=== PATIENT | female | born 1935 | race Caucasian/White ===

== ENCOUNTER 2018-01-14 14:01 | Inpatient (IN) | payer MEDICARE ==
[2018-01-14] MEDS ORDERED: Sodium Chloride 0.9% 500 ML IV STA ×2 (14:30→16:26)
--- NOTE | 2018-01-14 14:58 | ED PDOC ---
Syncope/Near Syncope/Dizziness Time Seen by Provider: 01/14/18 14:19 Chief Complaint (Nursing): Dizziness/Lightheaded Chief Complaint (Provider): Weakness History Per: Patient History/Exam Limitations: no limitations Onset/Duration Of Symptoms: Days Current Symptoms Are (Timing): Still Present Additional Complaint(s): 82 year old female presents to the ED for an evaluation of near syncope and general weakness. Patient was returning home from lab on the bus and she felt tired because she had not eaten since last night due to blood draw and missed her stop. She attempted to have a cookie after her blood draw and had one episode of vomiting prior to getting on the bus. Patient felt she was losing her vision, developed headache and left-sided neck pain. She states she has these symptoms when she passes out. Patient was advised to increase her insulin dosage last month but has not because she says, its too much. Denies shortness of breath, chest pain, focal weakness or passing out. PMD: Marshall Herrera Past Medical History Reviewed: Historical Data, Nursing Documentation, Vital Signs Vital Signs: Last Vital Signs Temp 98.9 F 01/14/18 14:10 Pulse 71 01/14/18 14:30 Resp 24 01/14/18 14:30 BP 114/52 L 01/14/18 14:30 Pulse Ox 98 01/14/18 14:30 - Medical History PMH: Arthritis, Diabetes, HTN, Hypothyroidism Denies: Chronic Kidney Disease - Surgical History Other surgeries: left tib-fib repair - Family History Family History: States: Unknown Family Hx - Social History Current smoker - smoking cessation education provided: No Alcohol: None Drugs: Denies - Immunization History Hx Tetanus Toxoid Vaccination: No Hx Influenza Vaccination: No Hx Pneumococcal Vaccination: No - Home Medications Home Medications: Ambulatory Orders Medication Instructions Recorded Meclizine [Meclizine*] 25 mg PO TID 01/17/15 Carvedilol [Coreg] 12.5 mg PO Q12 01/14/18 Ergocalciferol (Vitamin D2) 50,000 unit PO SUN 01/14/18 [Vitamin D2] Gabapentin [Neurontin] 300 mg PO Q8 01/14/18 Insulin Aspart Prot/Insuln Asp 8 unit SC DIN 01/14/18 [Novolog Mix 70-30 Vial] Insulin Aspart Prot/Insuln Asp 15 unit SC ACB 01/14/18 [Novolog Mix 70-30 Vial] Levothyroxine [Synthroid] 88 mcg PO DAILY 01/14/18 Losartan [Cozaar] 50 mg PO DAILY 01/14/18 Omeprazole [Omeprazole] 20 mg PO DAILY 01/14/18 Rosuvastatin Calcium [Crestor] 20 mg PO HS 01/14/18 - Allergies Allergies/Adverse Reactions: Allergies Allergy/AdvReac Type Severity Reaction Status Date / Time Sulfa (Sulfonamide Allergy RASH Verified 01/14/18 14:10 Antibiotics) Review of Systems ROS Statement: Except As Marked, All Systems Reviewed And Found Negative (As per HPI, otherwise negative) Constitutional: Positive for: Weakness (generalized ) Eyes: Positive for: Vision Change Cardiovascular: Negative for: Chest Pain Respiratory: Negative for: Shortness of Breath Gastrointestinal: Positive for: Vomiting (1 episode) Musculoskeletal: Positive for: Neck Pain (left-sided) Neurological: Positive for: Headache, Other (near syncope) Physical Exam - Reviewed Nursing Documentation Reviewed: Yes Vital Signs Reviewed: Yes - Physical Exam Appears: Positive for: No Acute Distress (tired) Head Exam: Positive for: ATRAUMATIC, NORMOCEPHALIC Skin: Positive for: Warm, Dry, Pallor Eye Exam: Positive for: EOMI, PERRL, Other (dark orbits) ENT: Positive for: Other (tacky mucous membrane) Neck: Positive for: Painless ROM, Supple. Negative for: Normal (tenderness to palpitation to left cervical paraspinal ) Cardiovascular/Chest: Positive for: Regular Rate, Rhythm, Chest Non Tender. Negative for: Murmur Respiratory: Positive for: Normal Breath Sounds. Negative for: Wheezing Gastrointestinal/Abdominal: Positive for: Soft. Negative for: Tenderness Back: Positive for: Normal Inspection. Negative for: Decreased ROM Extremity: Positive for: Normal ROM. Negative for: Deformity Lymphatic: Negative for: Adenopathy Neurologic/Psych: Positive for: Alert, Oriented (x3), Other (normal speech). Negative for: Motor/Sensory Deficits, Mood/Affect - Laboratory Results Result Diagrams: 01/14/18 14:58 01/14/18 16:30 - ECG O2 Sat by Pulse Oximetry: 98 (RA) Pulse Ox Interpretation: Normal Medical Decision Making Medical Decision Making: Time: 1433 Initial Impression: weakness Differential Diagnosis includes but is not limited to: dehydration, hyperglycemia, electrolyte abnormalities, hypovolemia, heat stroke, ACS Initial Plan: --Type and Screen --Venous Blood Gas Shock Panel --Head w/o Contrast [CT] --EKG --B-Type Natriuretic Peptide --CMP --FREE T4 --Magnesium --Phosphorous --T3 --Thyroid Stimulating --Troponin I --Troponin I Q8H --ED Urine Dipstick --CBC w/ Differential --PTT --Prothrombin Time --Chest Portable [RAD] --Normal Saline 500mls/hr --Blood Culture --Musical Instruments Assembler --IV Insertion --Reevaluation Time: 1501 HISTORY: Near syncope COMPARISON: 01/17/2015 FINDINGS: LUNGS: No active pulmonary disease. PLEURA: No significant pleural effusion identified, no pneumothorax apparent. CARDIOVASCULAR: No radiographic findings to suggest acute or significant cardiovascular disease. OSSEOUS STRUCTURES: No significant abnormalities. VISUALIZED UPPER ABDOMEN: Normal. OTHER FINDINGS: None. IMPRESSION: No active disease. No significant interval change compared to the prior examination(s). Time: 1535 PROCEDURE: CT HEAD WITHOUT CONTRAST. HISTORY: near syncope COMPARISON: 04/22/2013. TECHNIQUE: Axial computed tomography images were obtained through the head/brain without intravenous contrast. Coronal and sagittal reconstructed images. Radiation dose: Total exam DLP = 772.06 mGy-cm. This CT exam was performed using one or more of the following dose reduction techniques: Automated exposure control, adjustment of the mA and/or kV according to patient size, and/or use of iterative reconstruction technique. FINDINGS: HEMORRHAGE: No intracranial hemorrhage. BRAIN: No mass effect or edema. Cortical and cerebellar atrophy, periventricular small vessel disease. Bold infarction left mesial temporal region unchanged. Small encephalomalacia focus in the left temporal lobe also unchanged. VENTRICLES: Unremarkable. No hydrocephalus. CALVARIUM: Unremarkable. PARANASAL SINUSES: Unremarkable as visualized. No significant inflammatory changes. MASTOID AIR CELLS: Unremarkable as visualized. No inflammatory changes. OTHER FINDINGS: None. IMPRESSION: No acute intracranial abnormalities. No significant findings to account for the clinical presentation. No significant interval change compared to the prior examination(s). Udip: ketones, glucose, leuks. Sent of official UA/culture Bloodwork: hyperglycemia and elevated bun/cr and decreased GFR. Mild derangements in LFTs. DW Dr Heart covering for PMD Dr Herrera. Pt to be hospitalized for near syncope Scribe Attestation: Documented by Hussain Lombardo, acting as a scribe for Anna Ayala MD Provider Scribe Attestation: All medical record entries made by the Scribe were at my direction and personally dictated by me. I have reviewed the chart and agree that the record accurately reflects my personal performance of the history, physical exam, medical decision making, and the department course for this patient. I have also personally directed, reviewed, and agree with the discharge instructions and disposition. Disposition - Clinical Impression Clinical Impression: Near syncope, Heat stroke, Hyperglycemia, Dehydration Counseled Patient/Family Regarding: Studies Performed, Diagnosis - Disposition Disposition Time: 14:30 Condition: FAIR - Pt Status Changed To: Hospital Disposition Of: Observation - POA Present On Arrival: Falls Or Trauma (risk)
--- NOTE | 2018-01-14 15:02 | RAD ---
Date of service: 01/14/2018 HISTORY: Near syncope COMPARISON: 01/17/2015 FINDINGS: LUNGS: No active pulmonary disease. PLEURA: No significant pleural effusion identified, no pneumothorax apparent. CARDIOVASCULAR: No radiographic findings to suggest acute or significant cardiovascular disease. OSSEOUS STRUCTURES: No significant abnormalities. VISUALIZED UPPER ABDOMEN: Normal. OTHER FINDINGS: None. IMPRESSION: No active disease. No significant interval change compared to the prior examination(s).
[2018-01-14 15:04] LABS: BASO # 0.1 K/uL (0.0-0.2); BASO % 0.7 % (0.0-2.0); EOS # 0.1 K/uL (0.0-0.7); HEMOGLOBIN 12.6 g/dL (12.0-16.0); LYMPH # 1.6 K/uL (1.0-4.3); LYMPH % 17.3 % (20.0-40.0); MEAN CELL VOLUME 90.2 fl (81.0-99.0); MEAN CORPUSCULAR HEMOGLOBIN 31.1 pg (27.0-31.0); MEAN CORPUSCULAR HGB CONC 34.4 g/dL (33.0-37.0); MEAN PLATELET VOLUME 9.7 fl (7.2-11.7); MONO # 0.7 K/uL (0.0-0.8); MONO % 7.2 % (0.0-10.0); NEUT # 6.8 K/uL (1.8-7.0); NEUT % 73.8 % (50.0-75.0); NRBC % 0.1 % (0.0-0.0); RBC 4.06 Mil/uL (3.80-5.20); RED CELL DISTRIBUTION WIDTH 14.1 % (11.5-14.5); WHITE BLOOD COUNT 9.2 K/uL (4.8-10.8)
[2018-01-14 15:14] LABS: VENOUS BLOOD GAS BASE EXCESS 2.3 mmol/L (0.0-2.0); VENOUS BLOOD GAS PCO2 56 mmHg (40-60); VENOUS BLOOD GAS PO2 24 mm/Hg (30-55); VENOUS BLOOD PH 7.33 (7.32-7.43)
[2018-01-14 15:33] LABS: INR 1.2 (0.9-1.2); PARTIAL THROMBOPLASTIN TIME 37.6 Seconds (25.6-37.1); PROTHROMBIN TIME 12.9 Seconds (9.8-13.1)
--- NOTE | 2018-01-14 15:37 | CT ---
Date of service: 01/14/2018 PROCEDURE: CT HEAD WITHOUT CONTRAST. HISTORY: near syncope COMPARISON: 04/22/2013. TECHNIQUE: Axial computed tomography images were obtained through the head/brain without intravenous contrast. Coronal and sagittal reconstructed images. Radiation dose: Total exam DLP = 772.06 mGy-cm. This CT exam was performed using one or more of the following dose reduction techniques: Automated exposure control, adjustment of the mA and/or kV according to patient size, and/or use of iterative reconstruction technique. FINDINGS: HEMORRHAGE: No intracranial hemorrhage. BRAIN: No mass effect or edema. Cortical and cerebellar atrophy, periventricular small vessel disease. Bold infarction left mesial temporal region unchanged. Small encephalomalacia focus in the left temporal lobe also unchanged. VENTRICLES: Unremarkable. No hydrocephalus. CALVARIUM: Unremarkable. PARANASAL SINUSES: Unremarkable as visualized. No significant inflammatory changes. MASTOID AIR CELLS: Unremarkable as visualized. No inflammatory changes. OTHER FINDINGS: None. IMPRESSION: No acute intracranial abnormalities. No significant findings to account for the clinical presentation. No significant interval change compared to the prior examination(s).
[2018-01-14 15:55] LABS: ALBUMIN 3.6 g/dL (3.5-5.0); ALT/SGPT 119 U/L (9-52); AST/SGOT 62 U/L (14-36); BLOOD UREA NITROGEN 23 mg/dl (7-17); CALCIUM 8.7 mg/dL (8.4-10.2); GFR AFRICAN-AMERICAN 48; GFR NON-AFRICAN AMERICAN 39
[2018-01-14 16:03] LABS: B-TYPE NATRIURETIC PEPTIDE 477 pg/ml (0-900)
[2018-01-14] MEDS ORDERED: Insulin Regular 100 units/ml SC STA (16:17)
[2018-01-14 16:21] LABS: T3 0.799 nmol/L (1.49-2.60)
[2018-01-14 16:39] LABS: SQUAMOUS EPITHIAL 5 /hpf (0-5); URINE BACTERIA RARE (<OCC); URINE BILIRUBIN NEGATIVE (NEGATIVE); URINE BLOOD NEGATIVE (NEGATIVE); URINE CLARITY CLOUDY (Clear); URINE COLOR AMBER (YELLOW); URINE GLUCOSE (UA) 150 mg/dL (Normal); URINE LEUKOCYTE ESTERASE SMALL Leu/uL (Negative); URINE PROTEIN 100 mg/dL (NEGATIVE)
[2018-01-14] MEDS ORDERED: Insulin Regular 100 units/ml ONE (16:42)
--- NOTE | 2018-01-14 17:54 | US ---
Date of service: 01/14/2018 PROCEDURE: Duplex ultrasound of the carotid and vertebral arteries. HISTORY: near syncope recurrent COMPARISON: 08/01/2008 TECHNIQUE: Grayscale and duplex Doppler evaluation of the cervical carotid and vertebral arteries were performed. The common carotid, carotid bifurcations and cervical ICA and proximal ECA were evaluated. The vertebral arteries were evaluated for gross patency and direction. FINDINGS: RIGHT CAROTID ARTERIES: Common Carotid Artery: Intimal thickening is present Maximal flow velocity of 82.0 cm/s. Carotid Bifurcation: Heterogeneous plaque formation. Internal Carotid Artery:Heterogeneous plaque formation. Maximal flow velocity of 101.9 cm/s. External Carotid Artery (proximal branches): Normal. Maximal flow velocity of 113.0 cm/s. ICA/CCA Ratio: 1.8 LEFT CAROTID ARTERIES: Common Carotid Artery: Intimal thickening is present Maximal flow velocity of 86.7 cm/s. Carotid Bifurcation: Heterogeneous plaque formation. Internal Carotid Artery:Heterogeneous plaque formation. Maximal flow velocity of 07/10/2023 cm/s. External Carotid Artery (proximal branches): Normal. Maximal flow velocity of 130.2 cm/s. ICA/CCA Ratio: 1.5 VERTEBRAL ARTERIES: Right Vertebral Artery: Patent. Antegrade flow. Left Vertebral Artery: Patent. Antegrade flow. OTHER FINDINGS: None. IMPRESSION: Right ICA degree of stenosis: Less than 50% Left ICA degree of stenosis: Less than 50% No significant interval change compared to the prior examination(s). Reference Internal Carotid Artery (ICA) Peak Systolic Velocity (PSV) for above: 1. Less than 50% stenosis less than 125 cm/s peak systolic velocity 2. 50-69% stenosis 125-230cm/s peak systolic velocity 3. Greater than 70% but less than near occlusion greater than 230 cm/s peak systolic velocity
[2018-01-14] MEDS: Insulin Regular 100 units/ml SC SCH (22:22)
[2018-01-15] MEDS ORDERED: Pneumococcal 23-Valent Vaccine IM ONE (06:00)
[2018-01-15] MEDS: Levothyroxine 88 MCG TAB PO SCH (06:15)
--- NOTE | 2018-01-15 06:17 | CARD ---
APPROVED REPORT Date of service: 01/14/2018 EKG Measurement Heart [id number] <Conclusion> Sinus rhythm with premature atrial complexes left ventrtriciular hypertrophy by voltage criteria Nonspecific T wave abnormality Abnormal ECG
[2018-01-15] MEDS: Insulin Regular 100 units/ml SC SCH ×4 (06:31→21:52)
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
[2018-01-15] MEDS: Pantoprazole 40 mg EC Tab PO SCH (09:00)
[2018-01-15 16:53] LABS: HEPATITIS B CORE AB NEGATIVE (NEGATIVE)
[2018-01-15 17:05] LABS: HEPATITIS C ANTIBODY NEGATIVE (NEGATIVE)
[2018-01-15] MEDS: Enoxaparin 40 mg Syringe SC SCH (17:23)
--- NOTE | 2018-01-15 17:50 | US ---
Date of service: 01/15/2018 HISTORY: Abnormal LFTs. COMPARISON: [id number] abdominal ultrasound. TECHNIQUE: Sonographic evaluation of the abdomen. FINDINGS: LIVER: Measures 11.7 cm. Hepatopedal blood flow. Fatty infiltration manifest ultrasonographically as increased move echogenicity of the liver parenchyma. No mass. No intrahepatic bile duct dilatation. GALLBLADDER: Distended gallbladder containing tiny stones and sludge. No gallbladder wall edema, pericholecystic fluid or elicited sonographic Sanchez sign. COMMON BILE DUCT: Measures 0.8 mm. No stones. No dilatation. PANCREAS: Unremarkable as visualized. No mass. No ductal dilatation. RIGHT KIDNEY: Measures 3.8 x 8.5cm. Normal echogenicity. No calculus, mass, or hydronephrosis. LEFT KIDNEY: Measures 4.3 x 9.3cm. Normal echogenicity. No calculus, mass, or hydronephrosis. SPLEEN: Normal in size and contour. No mass. AORTA: No aneurysmal dilatation. IVC: Unremarkable. OTHER FINDINGS: None. IMPRESSION: Cholelithiasis. No sonographic evidence of acute cholecystitis. Hepatic steatosis without focal abnormality.
--- NOTE | 2018-01-15 18:34 | CP.PCM.CON ---
History of Present Illness - History of Present Illness History of Present Illness: I was asked to evaluate patient by Dr Heart Patient is a 82 year old female with PMH HTN, hypercholesterolemia who presents with a near syncopal event. The patient was walking form the laboratory when she developed dizziness. The patient describes almost passing out. She denies chest pain or palpitations. Review of Systems - Constitutional Constitutional: absent: As Per HPI, Anorexia, Chills, Daytime Sleepiness, Excessive Sweating, Fatigue, Fever, Frequent Falls, Headache, Increased Appetite , Lethargy, Malaise, Night Sweats, Snoring, Sleep Apnea, Weight Gain, Weight Loss, Weakness, Other - EENT Eyes: absent: As Per HPI, Blind Spots, Blurred Vision, Change in Vision, Decreased Night Vision, Diplopia, Discharge, Dry Eye, Exophthalmos, Floaters, Irritation, Itchy Eyes, Loss of Peripheral Vision, Pain, Photophobia, Requires Corrective Lenses, Sees Flashes, Spots in Vision, Tunnel Vision, Other Visual Disturbances, Loss of Vision, Other Ears: absent: As Per HPI, Decreased Hearing, Ear Discharge, Ear Pain, Tinnitus, Abnormal Hearing, Disequilibrium, Dizziness, Other Nose/Mouth/Throat: absent: As Per HPI, Epistaxis, Nasal Congestion, Nasal Discharge, Nasal Obstruction, Nasal Trauma, Nose Pain, Post Nasal Drip, Sinus Pain, Sinus Pressure, Bleeding Gums, Change in Voice, Dental Pain, Dry Mouth, Dysphagia, Halitosis, Hoarsness, Lip Swelling, Mouth Lesions, Mouth Pain, Odynophagia, Sore Throat, Throat Swelling, Tongue Swelling, Facial Pain, Neck Pain, Neck Mass, Other - Cardiovascular Cardiovascular: Syncope - Respiratory Respiratory: absent: As Per HPI, Cough, Dyspnea, Hemoptysis, Dyspnea on Exertion , Wheezing, Snoring, Stridor, Pain on Inspiration, Chest Congestion, Excessive Mucous Production, Change in Mucous Color, Pain with Coughing, Other - Gastrointestinal Gastrointestinal: absent: As Per HPI, Abdominal Pain, Belching, Bloating, Change in Bowel Habits, Change in Stool Character, Coffee Ground Emesis, Constipation, Cramping, Diarrhea, Dyspepsia, Dysphagia, Early Satiety, Excessive Flatus, Fecal Incontinence, Heartburn, Hematemesis, Hematochezia, Loose Stools, Melena, Nausea, Odynophagia, Temesmus, Vomiting, Other - Genitourinary Genitourinary: absent: As Per HPI, Change in Urinary Stream, Difficulty Urinating, Dysuria, Flank Pain, Hematuria, Pyuria, Nocturia, Urinary Incontinence, Urinary Frequency, Urinary Hesitance, Urinary Urgency, Voiding Freq/Small Amts, Freq UTI, Hx Renal/Bladder Calculi, Hx /Renal Surgery, Bladder Distension, Other - Musculoskeletal Musculoskeletal: absent: As Per HPI, Abnormal Gait, Arthralgias, Atrophy, Back Pain, Deformity, Joint Swelling, Limited Range of Motion, Loss of Height, Muscle Cramps, Muscle Weakness, Myalgias, Neck Pain, Numbness, Radiating Pain into Limb, Stiffness, Tingling, Other - Integumentary Integumentary: absent: As Per HPI, Acne, Alopecia, Bleeding Lesions, Change in Hair, Change in Nails, Change in Pigmentation, Changing Lesions, Dry Skin, Erythema, Furuncle, Hirsutism, Lesions, New Lesions, Non-Healing Lesions, Photosensitivity, Pruritus, Rash, Skin Pain, Skin Ulcer, Sores, Striae, Swelling , Unusual Bruising, Wounds, Jaundice, Other - Neurological Neurological: absent: As Per HPI, Abnormal Gait, Abnormal Hearing, Abnormal Movements, Abnormal Speech, Behavioral Changes, Burning Sensations, Confusion, Convulsions, Disequilibrium, Dizziness, Numbness, Focal Weakness, Frequent Falls , Headaches, Lack of Coordination, Loss of Vision, Memory Loss, Paresthesias, Radicular Pain, Restless Legs, Sensory Deficit, Syncope, Tingling, Tremor, Vertigo, Weakness, Other Visual Disturbances, Other - Psychiatric Psychiatric: absent: As Per HPI, Abnormal Sleep Pattern, Anhedonia, Anxiety, Auditory Hallucinations, Behavioral Changes, Change in Appetite, Change in Libido, Confusion, Depression, Difficulty Concentrating, Hallucinations, Homicidal Ideation, Hopelessness, Irritability, Memory Loss, Mood Swings, Panic Attacks, Paranoia, Suicidal Ideation, Visual Hallucinations, Tactile Hallucinations, Other - Endocrine Endocrine: absent: As Per HPI, Change in Body Appearance, Change in Libido, Cold Intolorance, Deepening of Voice, Excessive Sweating, Fatigue, Flushing, Heat Intolorance, Increase in Ring/Shoe/Hat Size, Palpitations, Polydipsia, Polyphagia, Polyuria, Other - Hematologic/Lymphatic Hematologic: absent: As Per HPI, Easy Bleeding, Easy Bruising, Lymphadenopathy, Other Past Patient History - Past Medical History & Family History Past Medical History?: Yes - Past Social History Alcohol: None Drugs: Denies - CARDIAC Hx Hypertension: Yes - PULMONARY Hx Respiratory Disorders: No - NEUROLOGICAL Hx Neurological Disorder: Yes - HEENT Hx HEENT Problems: No - RENAL Hx Chronic Kidney Disease: No - ENDOCRINE/METABOLIC Hx Hypothyroidism: Yes - HEMATOLOGICAL/ONCOLOGICAL Hx Blood Disorders: No - INTEGUMENTARY Hx Dermatological Problems: No - MUSCULOSKELETAL/RHEUMATOLOGICAL Hx Arthritis: Yes - PSYCHIATRIC Hx Substance Use: No - SURGICAL HISTORY Hx Surgeries: Yes Hx Musculoskeletal Surgery: Yes (left ankle surgery 2013, left leg surgery in 1993) Hx Orthopedic Surgery: Yes (bilateral shoulder surgery) Other/Comment: left leg sx (tib-fib fx 1989) - ANESTHESIA Hx Anesthesia: Yes Hx Anesthesia Reactions: No Hx Malignant Hyperthermia: No Meds Allergies/Adverse Reactions: Allergies Allergy/AdvReac Type Severity Reaction Status Date / Time Sulfa (Sulfonamide Allergy RASH Verified 01/14/18 14:10 Antibiotics) - Medications Medications: Current Medications Carvedilol (Coreg) 12.5 mg PO Q12 [facility] Last Admin: 01/15/18 08:59 Dose: 12.5 mg Enoxaparin Sodium (Lovenox) 40 mg SC DAILY [facility] PRN Reason: Protocol Last Admin: 01/15/18 17:23 Dose: 40 mg Ergocalciferol (Drisdol 50,000 Intl Units Cap) 1 cap PO SUN [facility] Gabapentin (Neurontin) 300 mg PO Q8 [facility] Last Admin: 01/15/18 17:23 Dose: 300 mg Insulin Human Regular (Humulin R) 0 units SC ACHS [facility] PRN Reason: Protocol Last Admin: 01/15/18 17:24 Dose: 4 u Levothyroxine Sodium (Synthroid) 88 mcg PO DAILY@0630 [facility] Last Admin: 01/15/18 06:15 Dose: 88 mcg Losartan Potassium (Cozaar) 50 mg PO DAILY [facility] Last Admin: 01/15/18 08:59 Dose: 50 mg Meclizine HCl (Antivert) 25 mg PO TID [facility] Last Admin: 01/15/18 17:20 Dose: 25 mg Metformin HCl (Glucophage) 500 mg PO BIDWM [facility] Last Admin: 01/15/18 17:21 Dose: 500 mg Nitrofurantoin Macrocrystals (Macrobid) 100 mg PO Q12 [facility] PRN Reason: Protocol Stop: 01/21/18 21:01 Last Admin: 01/15/18 11:34 Dose: 100 mg Pantoprazole Sodium (Protonix Ec Tab) 40 mg PO DAILY [facility] Last Admin: 01/15/18 09:00 Dose: 40 mg Sitagliptin Phosphate (Januvia) 100 mg PO DAILY [facility] Last Admin: 01/15/18 17:21 Dose: 100 mg Physical Exam - Constitutional Appears: Non-toxic - Head Exam Head Exam: NORMAL INSPECTION - Eye Exam Eye Exam: Normal appearance - ENT Exam ENT Exam: Mucous Membranes Moist - Neck Exam Neck exam: Positive for: Full Rom - Respiratory Exam Respiratory Exam: NORMAL BREATHING PATTERN - Cardiovascular Exam Cardiovascular Exam: REGULAR RHYTHM - GI/Abdominal Exam GI & Abdominal Exam: Normal Bowel Sounds - Rectal Exam Rectal Exam: Deferred - Extremities Exam Extremities exam: Positive for: pedal edema - Back Exam Back exam: NORMAL INSPECTION - Neurological Exam Neurological exam: Alert, Oriented x3 - Psychiatric Exam Psychiatric exam: Normal Affect - Skin Skin Exam: Normal Color Results - Vital Signs Recent Vital Signs: Last Vital Signs Temp 97.8 F 01/15/18 16:34 Pulse 63 01/15/18 16:34 Resp 16 01/15/18 16:34 BP 126/54 L 01/15/18 16:34 Pulse Ox 98 01/15/18 16:34 - Labs Result Diagrams: 01/14/18 14:58 01/14/18 16:30 Labs: Laboratory Results - last 24 hr 01/14/18 01/14/18 01/15/18 23:00 23:00 05:40 Hemoglobin A1c 9.6 H Troponin I < 0.0120 Triglycerides 171 H D Cholesterol 165 LDL Cholesterol Direct 73 HDL Cholesterol 25 L Alpha Fetoprotein Carcinoembryonic Ag CA 19-9 Antigen CA 125 Antigen Free T4 TSH 3rd Generation 4.01 Hepatitis A Ab Total Hep Bs Antibody Hep B Core IgM Ab Hepatitis C Antibody 01/15/18 01/15/18 01/15/18 12:55 12:55 12:55 Hemoglobin A1c Troponin I Triglycerides Cholesterol LDL Cholesterol Direct HDL Cholesterol Alpha Fetoprotein 4.1 Carcinoembryonic Ag 3.9 H CA 19-9 Antigen 190 H CA 125 Antigen 10.8 Free T4 TSH 3rd Generation Hepatitis A Ab Total Antibody pos Hep Bs Antibody Hep B Core IgM Ab Negative Hepatitis C Antibody Negative 01/15/18 01/15/18 12:55 14:45 Hemoglobin A1c Troponin I Triglycerides Cholesterol LDL Cholesterol Direct HDL Cholesterol Alpha Fetoprotein Carcinoembryonic Ag CA 19-9 Antigen CA 125 Antigen Free T4 1.68 TSH 3rd Generation Hepatitis A Ab Total Hep Bs Antibody Positive Hep B Core IgM Ab Hepatitis C Antibody - EKG Data EKG Interpreted by: Myself EKG shows normal: Sinus rhythm Assessment & Plan (1) Near syncope Assessment and Plan: monitor on telemetry for arrhythmia. Thus far no events. echocardiogram reveals normal left ventricular function and normal vlavular function. There does not appear to be a cardiac cause of her syncope. Status: Acute (2) Hypertension Assessment and Plan: will continue blood pressure therapy Status: Chronic
[2018-01-16 05:45] LABS: BASO % 0.5 % (0.0-2.0); EOS # 0.1 K/uL (0.0-0.7); HEMOGLOBIN 11.4 g/dL (12.0-16.0); LYMPH # 1.7 K/uL (1.0-4.3); LYMPH % 21.2 % (20.0-40.0); MEAN CORPUSCULAR HEMOGLOBIN 30.8 pg (27.0-31.0); MEAN CORPUSCULAR HGB CONC 33.8 g/dL (33.0-37.0); MEAN PLATELET VOLUME 9.3 fl (7.2-11.7); MONO # 0.6 K/uL (0.0-0.8); MONO % 7.3 % (0.0-10.0); NEUT # 5.5 K/uL (1.8-7.0); RBC 3.7 Mil/uL (3.80-5.20); RED CELL DISTRIBUTION WIDTH 13.8 % (11.5-14.5); WHITE BLOOD COUNT 7.9 K/uL (4.8-10.8)
[2018-01-16 06:04] LABS: ALBUMIN 3.2 g/dL (3.5-5.0); ALT/SGPT 120 U/L (9-52); AST/SGOT 122 U/L (14-36); BLOOD UREA NITROGEN 19 mg/dl (7-17); CALCIUM 8.4 mg/dL (8.4-10.2); GFR AFRICAN-AMERICAN > 60; GFR NON-AFRICAN AMERICAN > 60
[2018-01-16] MEDS: Insulin Regular 100 units/ml SC SCH ×4 (06:32→21:44)
[2018-01-16] MEDS: Levothyroxine 88 MCG TAB PO SCH (06:33)
[2018-01-16] MEDS: Pantoprazole 40 mg EC Tab PO SCH (09:12)
[2018-01-16] MEDS: Enoxaparin 40 mg Syringe SC SCH (09:14)
[2018-01-16] MEDS ORDERED: Iohexol 240 (50 ml) PO ONE (10:24)
--- NOTE | 2018-01-16 12:55 | CARD ---
APPROVED REPORT Date of service: 01/15/2018 EXAM: Two-dimensional and M-mode echocardiogram with Doppler and color Doppler. Other Information Quality : GoodRhythm : NSR INDICATION Syncope 2D DIMENSIONS IVSd0.83 (0.7-1.1cm)LVDd3.66 (3.9-5.9cm) LVOT Diameter1.79 (1.8-2.4cm)PWd0.89 (0.7-1.1cm) IVSs1.17 (0.8-1.2cm)LVDs1.84 (2.5-4.0cm) FS (%) 49.7 %PWs1.25 (0.8-1.2cm) M-Mode DIMENSIONS Left Atrium (MM)4.58 (2.5-4.0cm)IVSd1.13 (0.7-1.1cm) Aortic Root2.88 (2.2-3.7cm)LVDd4.12 (4.0-5.6cm) Aortic Cusp Exc.1.85 (1.5-2.0cm)PWd1.08 (0.7-1.1cm) IVSs1.60 cmFS (%) 41 % LVDs2.42 (2.0-3.8cm)PWs1.18 cm Aortic Valve AoV Peak Fwrmtaxe028.8cm/sAoV VTI25.1cmAO Peak GR.5mmHg LVOT Peak Enfznmfh76.5cm/sLVOT VTI20.80cmAO Mean GR.3mmHg PADMINI (VMAX)1.34mj6KIY (VTI)1.36cm2 Mitral Valve MV E Fyywtini20.4cm/sMV DECEL [id number] A Lamyccdy86.7cm/s MV RQG35wmB/A ratio0.7MVA (PHT)2.63cm2 TDI Lateral E' Peak V7.74cm/sMedial E' Peak V5.21cm/sE/Lateral E'7.7 E/Medial E'11.4 Pulmonary Valve PV Peak Icywudtt76.8cm/s Tricuspid Valve TR Peak Xrlcilzm945pr/sRAP [id number] Peak Gr.18mmHg CHOD78shJv LEFT VENTRICLE The left ventricle is normal size. There is mild concentric left ventricular hypertrophy. The left ventricular function is normal. The left ventricular ejection fraction is within the normal range. LVEF 65% There is normal LV segmental wall motion. The left ventricular diastolic function is normal. No left ventricle thrombus noted on this study. There is no ventricular septal defect visualized. There is no left ventricular aneurysm. There is no mass noted in the left ventricle. RIGHT VENTRICLE The right ventricle is normal size. There is normal right ventricular wall thickness. The right ventricular systolic function is normal. ATRIA The left atrium size is normal. The right atrium size is normal. The interatrial septum is intact with no evidence for an atrial septal defect. AORTIC VALVE The aortic valve is normal in structure. No aortic regurgitation is present. There is no aortic valvular stenosis. There is no aortic valvular vegetation. MITRAL VALVE The mitral valve is normal in structure. There is no evidence of mitral valve prolapse. There is no mitral valve stenosis. There is no mitral valve regurgitation noted. TRICUSPID VALVE The tricuspid valve is normal in structure. There is no tricuspid valve regurgitation noted. There is no tricuspid valve prolapse or vegetation. There is no tricuspid valve stenosis. PULMONIC VALVE The pulmonary valve is normal in structure. There is no pulmonic valvular regurgitation. There is no pulmonic valvular stenosis. GREAT VESSELS The aortic root is normal in size. The IVC is normal in size and collapses >50% with inspiration. PERICARDIAL EFFUSION The pericardium appears normal. There is no pleural effusion. <Conclusion> The left ventricle is normal size. There is mild concentric left ventricular hypertrophy. The left ventricular function is normal. The left ventricular ejection fraction is within the normal range. LVEF 65%
[2018-01-16] MEDS ORDERED: Iohexol 300 100 ML IJ ONE (14:47)
[2018-01-16] MEDS ORDERED: Sodium Chloride 0.9% 50 ML IV ONE (14:47)
[2018-01-16] MEDS ORDERED: Dextrose 50% SYRINGE Inj (50 ml) IV PRN (15:20)
[2018-01-16] MEDS ORDERED: Glucagon Recombinant 1 mg Inj IM PRN (15:20)
[2018-01-16 16:17] LABS: HEPATITIS B SURFACE AG Negative (NEGATIVE)
[2018-01-16 16:23] LABS: HEPATITIS A IGM NEGATIVE (NEGATIVE); HEPATITIS B CORE AB NEGATIVE (NEGATIVE)
[2018-01-16 16:35] LABS: HEPATITIS C ANTIBODY NEGATIVE (NEGATIVE)
--- NOTE | 2018-01-16 16:37 | CT ---
Date of service: 01/16/2018 PROCEDURE: CT Abdomen and Pelvis with contrast HISTORY: elevated tumor markers, elevated lfts COMPARISON: None. TECHNIQUE: Contrast dose: 95 cc Omnipaque 300 Radiation dose: Total exam DLP = 348.94 mGy-cm. This CT exam was performed using one or more of the following dose reduction techniques: Automated exposure control, adjustment of the mA and/or kV according to patient size, and/or use of iterative reconstruction technique. FINDINGS: LOWER THORAX: Unremarkable. LIVER: Unremarkable. No gross lesion or ductal dilatation. GALLBLADDER AND BILE DUCTS: Mild nonspecific thickening of the gallbladder wall. No calcified gallstones. No pericholecystic fluid. PANCREAS: Unremarkable. No gross lesion or ductal dilatation. SPLEEN: Unremarkable. ADRENALS: Unremarkable. No mass. KIDNEYS AND URETERS: Unremarkable. No hydronephrosis. No solid mass. VASCULATURE: Unremarkable. No aortic aneurysm. BOWEL: No bowel obstruction. Incidental diverticulum of the 2nd portion of the duodenum. Mild sigmoid diverticulosis without evidence of diverticulitis. No other abnormal bowel loops. APPENDIX: Normal appendix. PERITONEUM: Unremarkable. No free fluid. No free air. LYMPH NODES: Unremarkable. No enlarged lymph nodes. BLADDER: Nondistended REPRODUCTIVE: Normal uterus BONES: No acute fracture. Grade 1 anterolisthesis at the L4-5 disc space level without evidence of spondylolysis. OTHER FINDINGS: None. IMPRESSION: No acute abnormality. Mild nonspecific gallbladder wall thickening. Consider correlation with limited abdominal ultrasound. Sigmoid diverticulosis without evidence of diverticulitis. Minor findings as above.
[2018-01-16] MEDS ORDERED: Insulin Detemir 100 Units/ml Inj SC SCH ×2 (22:00)
[2018-01-17 05:51] LABS: ALBUMIN 3.2 g/dL (3.5-5.0); ALT/SGPT 100 U/L (9-52); AST/SGOT 80 U/L (14-36); BLOOD UREA NITROGEN 18 mg/dl (7-17); GFR AFRICAN-AMERICAN > 60; GFR NON-AFRICAN AMERICAN > 60
[2018-01-17] MEDS: Levothyroxine 88 MCG TAB PO SCH (06:04)
--- NOTE | 2018-01-17 07:28 | CON ---
DATE: 01/16/2018 REFERRING PHYSICIAN: Sammy Heart MD REASON FOR CONSULTATION: Elevated LFTs. HISTORY OF PRESENT ILLNESS: This is a pleasant 82-year-old female with history of hypertension, hyperlipidemia, diabetes, vertigo and hypothyroidism who was brought in for episodes x2 during the hot day. emesis. Essentially, GI was called for evaluation of LFTs. The patient at this point has no fevers, no chills, no nausea or vomiting, no GI complaints, no headache as well. Currently lying in bed comfortably, in no apparent distress. PAST MEDICAL HISTORY: As above. PAST SURGICAL HISTORY: Noncontributory. ALLERGIES: SULFA. REVIEW OF SYSTEMS: All other systems have been reviewed and negative apart from the HPI. PHYSICAL EXAMINATION: GENERAL: This is a pleasant elderly appearing female, lying in bed comfortably, in no apparent distress. VITAL SIGNS: Here in the hospital grossly unremarkable. HEENT: Head is normocephalic and atraumatic. Eyes, pupils are equal,round, and reactive to light bilaterally. No conjunctival pallor or icterus. NECK: Supple. Normal range of motion. No lymphadenopathy appreciated. LUNGS: Coarse breath sounds bilaterally. HEART: S1 and S2, regular rate and rhythm. No murmur appreciated. ABDOMEN: Soft and nontender. Bowel sounds present. No rebound. No guarding. RECTAL: Deferred. EXTREMITIES: Pulses present bilaterally. SKIN: Warm, dry, and intact. NEUROLOGIC: A and O x3. LABORATORY DATA: All labs and radiology have been reviewed. WBC 11.9, hemoglobin 11.4, hematocrit 33.7. INR 1.2. Sugars are of 295. LFTs down to 30.3. AST is 122, ALT is 120, alk phos 256, albumin is 3.2. CEA 3.9. CA 19-9 is 190. Hepatitis panel is negative. Abdominal ultrasound which was done shows some cholelithiasis, but no other acute liver process, fatty liver as well. Normal CBD given her age. CT of the abdomen and pelvis shows some questionable gallbladder wall thickening, sigmoid diverticulosis, duodenal diverticulum. ASSESSMENT AND PLAN: This is an 82-year-old female with elevated liver function tests, unclear etiology. The patient's sugars elevated to be corrected. standpoint, this might be just due to acute on chronic cholecystitis. We will consider HIDA scan. She is tolerating diet well and no other acute gastrointestinal issues. We will follow up the patient with you. Thank you for this consult. Mick Adorno MD/ PhD cc: Sammy Heart MD
--- NOTE | 2018-01-17 08:07 | CP.PCM.PN ---
Subjective - Date & Time of Evaluation Date of Evaluation: 01/17/18 Time of Evaluation: 08:04 - Subjective Subjective: No acute overnight events. Pt doing well today; denies chest pain, dyspnea, abdominal pain, n/v/d/c dizziness. Pt ambulating in the hallway without any dizziness or nausea and tolerating PO diet. Objective - Vital Signs/Intake and Output Vital Signs (last 24 hours): Temp Pulse Resp BP Pulse Ox 98.0 F 63 18 146/77 98 01/17/18 04:54 01/17/18 04:54 01/17/18 04:54 01/17/18 04:54 01/17/18 04:54 - Medications Medications: Current Medications Carvedilol (Coreg) 12.5 mg PO Q12 [facility] Last Admin: 01/16/18 21:39 Dose: 12.5 mg Dextrose (Dextrose 50% Inj) 0 ml IV STAT PRN; Protocol PRN Reason: Hypoglycemia Protocol Dextrose (Glutose 15) 0 gm PO ONCE PRN; Protocol PRN Reason: Hypoglycemia Protocol Enoxaparin Sodium (Lovenox) 40 mg SC DAILY [facility] PRN Reason: Protocol Last Admin: 01/16/18 09:14 Dose: 40 mg Ergocalciferol (Drisdol 50,000 Intl Units Cap) 1 cap PO SUN [facility] Gabapentin (Neurontin) 300 mg PO Q8 [facility] Last Admin: 01/17/18 01:15 Dose: 300 mg Glucagon (Glucagen Diagnostic Kit) 0 mg IM STAT PRN; Protocol PRN Reason: Hypoglycemia Protocol Insulin Detemir (Levemir) 10 units SC HS [facility] Last Admin: 01/16/18 21:42 Dose: 10 unit Insulin Human Regular (Humulin R) 0 units SC ACHS [facility] PRN Reason: Protocol Last Admin: 01/16/18 21:44 Dose: 4 units Levothyroxine Sodium (Synthroid) 88 mcg PO DAILY@0630 [facility] Last Admin: 01/17/18 06:04 Dose: 88 mcg Losartan Potassium (Cozaar) 50 mg PO DAILY [facility] Last Admin: 01/16/18 09:13 Dose: 50 mg Meclizine HCl (Antivert) 25 mg PO TID [facility] Last Admin: 01/16/18 16:35 Dose: 25 mg Metformin HCl (Glucophage) 500 mg PO BIDWM [facility] Last Admin: 01/16/18 09:12 Dose: 500 mg Nitrofurantoin Macrocrystals (Macrobid) 100 mg PO Q12 [facility] PRN Reason: Protocol Stop: 01/21/18 21:01 Last Admin: 01/16/18 21:40 Dose: 100 mg Pantoprazole Sodium (Protonix Ec Tab) 40 mg PO DAILY [facility] Last Admin: 01/16/18 09:12 Dose: 40 mg Sitagliptin Phosphate (Januvia) 100 mg PO DAILY [facility] Last Admin: 01/16/18 09:12 Dose: 100 mg - Labs Labs: 01/16/18 05:33 01/17/18 04:20 PT 12.9 Seconds (9.8-13.1) 01/14/18 14:58 INR 1.2 (0.9-1.2) 01/14/18 14:58 APTT 37.6 Seconds (25.6-37.1) H 01/14/18 14:58 - Constitutional Appears: No Acute Distress - Head Exam Head Exam: ATRAUMATIC - Eye Exam Eye Exam: EOMI, Normal appearance - ENT Exam ENT Exam: Mucous Membranes Moist - Respiratory Exam Respiratory Exam: Clear to Ausculation Bilateral. absent: Wheezes - Cardiovascular Exam Cardiovascular Exam: REGULAR RHYTHM, +S1, +S2 - GI/Abdominal Exam GI & Abdominal Exam: Soft, Normal Bowel Sounds. absent: Tenderness - Extremities Exam Extremities Exam: Normal Inspection - Neurological Exam Neurological Exam: Alert, Awake, Oriented x3 Assessment and Plan (1) Hypertension Status: Chronic (2) Diabetes type 2, uncontrolled Status: Acute (3) Hypothyroidism Status: Chronic (4) Dehydration Status: Acute (5) Heat stroke Status: Acute (6) Near syncope Status: Acute (7) Elevated liver enzymes Status: Acute - Assessment and Plan (Free Text) Assessment: Assessment/Plan: 82 YO female with PMHx of HTN, DM, HLD, vertigo and hypothyroidism is admitted for near syncope. -likely 2/2 to dehydration, heat stroke -blood work sig for hyperglycemia; long acting insulin added to regimen -transaminitis likely 2/2 to biliary colic, improving -CT abd and pel sig for nonspecific gallbladder wall thickening. Sigmoid diverticulosis. -U/S abdomen sig for cholilithasis -Seen by cardiology, event not cardiac in nature, stable -VS stable, afebrile -plan as ordered -GI consulted; pending HIDA scan Pt seen and examined with attending, Dr. Heart
[2018-01-17] MEDS: Insulin Regular 100 units/ml SC SCH ×3 (08:29→16:47)
[2018-01-17] MEDS: Pantoprazole 40 mg EC Tab PO SCH (08:33)
[2018-01-17] MEDS: Enoxaparin 40 mg Syringe SC SCH (08:34)
--- NOTE | 2018-01-17 11:30 | PQF ---
PROVIDER RESPONSE TEXT: LUPILLO due to dehydration and heat stroke which resolved after IVF REVIEWER QUERY TEXT: Clarification of Clinical Diagnostic Findings Please clarify documentation or clinical relevance for the clinical / diagnostic findings or whether those are insignificant or unable to be further specified. The patient's Clinical Indicators include: Admitted with Syncope likely 2* Dehydration and Heat Stroke BUN 23-> 18, Creatinine 1.3-> 0.8 after IVF. UA Blood negative 3 RBC, 3-5 Hyaline Casts. Query created by: Samantha Ball on 01/17/2018 11:22 AM Electronically signed by: Sara Arana 01/17/2018 11:27 AM
--- NOTE | 2018-01-17 15:40 | CP.PCM.DIS ---
Provider - Provider Date of Admission: 01/16/18 14:16 Attending physician: Sammy Heart MD Time Spent in preparation of Discharge (in minutes): 20 Diagnosis - Discharge Diagnosis (1) Hypertension Status: Chronic (2) Diabetes type 2, uncontrolled Status: Acute (3) Hypothyroidism Status: Chronic (4) Dehydration Status: Acute (5) Heat stroke Status: Acute (6) Near syncope Status: Acute (7) Elevated liver enzymes Status: Acute Hospital Course - Lab Results Lab Results: Micro Results 01/14/18 14:45 Blood-Venous Blood Culture - Preliminary NO GROWTH AFTER 3 DAYS 01/14/18 15:10 Blood-Venous Blood Culture - Preliminary NO GROWTH AFTER 48 HOURS 01/14/18 16:17 Urine Urine Culture - Final No Growth (<1,000 CFU/ML) Most Recent Lab Values WBC 7.9 K/uL (4.8-10.8) 01/16/18 05:33 RBC 3.70 Mil/uL (3.80-5.20) L 01/16/18 05:33 Hgb 11.4 g/dL (12.0-16.0) L 01/16/18 05:33 Hct 33.7 % (34.0-47.0) L 01/16/18 05:33 MCV 91.0 fl (81.0-99.0) 01/16/18 05:33 MCH 30.8 pg (27.0-31.0) 01/16/18 05:33 MCHC 33.8 g/dL (33.0-37.0) 01/16/18 05:33 RDW 13.8 % (11.5-14.5) 01/16/18 05:33 Plt Count 194 K/uL (130-400) 01/16/18 05:33 MPV 9.3 fl (7.2-11.7) 01/16/18 05:33 Neut % (Auto) 70.0 % (50.0-75.0) 01/16/18 05:33 Lymph % (Auto) 21.2 % (20.0-40.0) 01/16/18 05:33 [place] % (Auto) 7.3 % (0.0-10.0) 01/16/18 05:33 Eos % (Auto) 1.0 % (0.0-4.0) 01/16/18 05:33 Baso % (Auto) 0.5 % (0.0-2.0) 01/16/18 05:33 Neut # (Auto) 5.5 K/uL (1.8-7.0) 01/16/18 05:33 Lymph # (Auto) 1.7 K/uL (1.0-4.3) 01/16/18 05:33 [place] # (Auto) 0.6 K/uL (0.0-0.8) 01/16/18 05:33 Eos # (Auto) 0.1 K/uL (0.0-0.7) 01/16/18 05:33 Baso # (Auto) 0.0 K/uL (0.0-0.2) 01/16/18 05:33 PT 12.9 Seconds (9.8-13.1) 01/14/18 14:58 INR 1.2 (0.9-1.2) 01/14/18 14:58 APTT 37.6 Seconds (25.6-37.1) H 01/14/18 14:58 pO2 24 mm/Hg (30-55) L 01/14/18 14:33 VBG pH 7.33 (7.32-7.43) 01/14/18 14:33 VBG pCO2 56 mmHg (40-60) 01/14/18 14:33 VBG HCO3 25.2 mmol/L 01/14/18 14:33 VBG Total CO2 31.2 mmol/L (22-28) H 01/14/18 14:33 VBG O2 Sat (Calc) 45.1 % (40-65) 01/14/18 14:33 VBG Base Excess 2.3 mmol/L (0.0-2.0) H 01/14/18 14:33 VBG Potassium 4.2 mmol/L (3.6-5.2) 01/14/18 14:33 Sodium 137.0 mmol/L (132-148) 01/14/18 14:33 Chloride 99.0 mmol/L (98-107) 01/14/18 14:33 Glucose 328 mg/dL (65-105) H 01/14/18 14:33 Lactate 1.6 mmol/L (0.7-2.1) 01/14/18 14:33 FiO2 21.0 % 01/14/18 14:33 Sodium 139 mmol/l (132-148) 01/17/18 04:20 Potassium 4.0 MMOL/L (3.6-5.0) 01/17/18 04:20 Chloride 102 mmol/L (98-107) 01/17/18 04:20 Carbon Dioxide 28 mmol/L (22-30) 01/17/18 04:20 Anion Gap 13 (10-20) 01/17/18 04:20 BUN 18 mg/dl (7-17) H 01/17/18 04:20 Creatinine 0.8 mg/dl (0.7-1.2) 01/17/18 04:20 Est GFR ( Amer) > 60 01/17/18 04:20 Est GFR (Non-Af Amer) > 60 01/17/18 04:20 POC Glucose (mg/dL) 263 mg/dL (65-110) H 01/17/18 11:00 Random Glucose 134 mg/dL (65-105) H 01/17/18 04:20 Hemoglobin A1c 9.6 % (4.2-6.5) H 01/14/18 23:00 Calcium 9.0 mg/dL (8.4-10.2) 01/17/18 04:20 Phosphorus 4.2 mg/dl (2.5-4.5) 01/14/18 16:30 Magnesium 2.0 MG/DL (1.6-2.3) 01/14/18 16:30 Total Bilirubin 1.4 mg/dl (0.2-1.3) H 01/17/18 04:20 AST 80 U/L (14-36) H D 01/17/18 04:20 ALT 100 U/L (9-52) H 01/17/18 04:20 Alkaline Phosphatase 248 U/L (38-126) H 01/17/18 04:20 Troponin I < 0.0120 ng/mL (0.00-0.120) 01/15/18 05:40 NT-Pro-B Natriuret Pep 477 pg/ml (0-900) 01/14/18 16:30 Total Protein 6.4 G/DL (6.3-8.2) 01/17/18 04:20 Albumin 3.2 g/dL (3.5-5.0) L 01/17/18 04:20 Globulin 3.2 gm/dL (2.2-3.9) 01/17/18 04:20 Albumin/Globulin Ratio 1.0 (1.0-2.1) 01/17/18 04:20 Triglycerides 171 mg/DL (0-149) H D 01/14/18 23:00 Cholesterol 165 mg/dL (0-199) 01/14/18 23:00 LDL Cholesterol Direct 73 mg/dL (0-129) 01/14/18 23:00 HDL Cholesterol 25 MG/DL (30-70) L 01/14/18 23:00 Lipase 230 U/L (23-300) 01/16/18 16:47 Alpha Fetoprotein 4.1 IU/mL (0.0-7.22) 01/15/18 12:55 Carcinoembryonic Ag 3.9 ng/mL (0-3.0) H 01/15/18 12:55 CA 19-9 Antigen 190 U/mL (0-37) H 01/15/18 12:55 CA 125 Antigen 10.8 U/mL (0-35) 01/15/18 12:55 Free T4 1.68 ng/dL (0.78-2.19) 01/15/18 14:45 Total T3 0.799 nmol/L (1.49-2.60) L 01/14/18 16:30 TSH 3rd Generation 4.01 mIU/ML (0.46-4.68) 01/14/18 23:00 Venous Blood Potassium 4.2 mmol/L (3.6-5.2) 01/14/18 14:33 Urine Color [place] (YELLOW) 01/14/18 16:17 Urine Clarity Cloudy (Clear) 01/14/18 16:17 Urine pH 5.0 (5.0-8.0) 01/14/18 16:17 Ur Specific [place] 1.021 (1.003-1.030) 01/14/18 16:17 Urine Protein 100 mg/dL (NEGATIVE) 01/14/18 16:17 Urine Glucose (UA) 150 mg/dL (Normal) 01/14/18 16:17 Urine Ketones Trace mg/dL (NEGATIVE) 01/14/18 16:17 Urine Blood Negative (NEGATIVE) 01/14/18 16:17 Urine Nitrate Negative (NEGATIVE) 01/14/18 16:17 Urine Bilirubin Negative (NEGATIVE) 01/14/18 16:17 Urine Urobilinogen 4.0 mg/dL (0.2-1.0) H 01/14/18 16:17 Ur Leukocyte Esterase Small [place]/uL (Negative) 01/14/18 16:17 Urine RBC (Auto) 3 /hpf (0-3) 01/14/18 16:17 Urine Microscopic WBC 14 /hpf (0-5) H 01/14/18 16:17 Ur Squamous Epith Cells 5 /hpf (0-5) 01/14/18 16:17 Urine Bacteria Rare (<OCC) 01/14/18 16:17 Hyaline Casts 3-5 /hpf (0-2) H 01/14/18 16:17 Stool Occult Blood Negative (NEGATIVE) 01/16/18 14:44 IgG 1041.1 mg/dL (700.0-1600.0) 01/16/18 10:45 Anti-Mitochondrial Ab Negative (Negative) 01/16/18 10:45 Anti-Smooth Muscle Ab Negative (Negative) 01/16/18 10:45 Hepatitis A IgM Ab Negative (NEGATIVE) 01/16/18 10:45 Hepatitis A Ab Total Antibody pos (NEGATIVE) 01/15/18 12:55 Hep Bs Antigen Negative (NEGATIVE) 01/16/18 10:45 Hep Bs Antibody Positive (NEGATIVE) 01/15/18 12:55 Hep B Core IgM Ab Negative (NEGATIVE) 01/16/18 10:45 Hepatitis C Antibody Negative (NEGATIVE) 01/16/18 10:45 - Hospital Course Hospital Course: 82 YO female with PMHx of HTN, DM, HLD, vertigo and hypothyroidism is admitted for near syncope. Likely likely 2/2 to dehydration, and heat stroke. cardiology was cosulted; no acute cardiac finding. Blood work and imaging sig for elevated LFTs, GI was consulted. Elevated liver enzymes likely 2/2 to biliary colic, improving. S/p HIDA scan today. Pt cleared by cardiology and GI for d/c home. Will d/c patient home with follow up with PMD in 1 week. Discharge Exam - Head Exam Head Exam: ATRAUMATIC - Eye Exam Eye Exam: EOMI - ENT Exam ENT Exam: Mucous Membranes Moist - Respiratory Exam Respiratory Exam: Chest Wall Tenderness, Clear to PA & Lateral. absent: Wheezes - Cardiovascular Exam Cardiovascular Exam: REGULAR RHYTHM, +S1, +S2 - GI/Abdominal Exam GI & Abdominal Exam: Normal Bowel Sounds, Soft. absent: Tenderness - Back Exam Back exam: NORMAL INSPECTION - Neurological Exam Neurological exam: Alert, Oriented x3 Discharge Plan - Discharge Medications Prescriptions: metFORMIN [glucOPHAGE] 500 mg PO BIDWM #60 tab SITagliptin [Januvia] 100 mg PO DAILY #30 tab - Follow Up Plan Condition: FAIR Disposition: HOME/ ROUTINE
--- NOTE | 2018-01-17 15:46 | NM ---
Date of service: 01/17/2018 PROCEDURE: Nuclear Medicine Hepatobiliary Scan HISTORY: elevated lfts cholelithiasis COMPARISON: None available. TECHNIQUE: 5.250 mCi of technetium 99m Mebrofenin was administered intravenously. Planar images of the abdomen were obtained at 5 min intervals to 60 mins. FINDINGS: LIVER: Timely and homogenous uptake. COMMON BILE DUCT: identified at 30 mins. GALLBLADDER: identified at 10 mins. SMALL BOWEL: Identified at 30 mins. IMPRESSION: Normal Hepatobiliary Scan. No nuclear evidence of cystic or common bile duct obstruction.
[2018-01-17 16:10] VITALS: BP 129/68; PULSE 61; RESP 18; TEMP 97.8; O2SAT 98
[2018-01-19] MEDS ORDERED: Ergocalciferol 50,000 Intl Units Cap PO SCH (09:00)
== END 2018-01-17 17:40 | disposition home or self-care (01) | DRG 683 ==
LOC: H.ER 14:01 → H.ERHOLD 16:07 → H.TEL 18:35 → OBSVTOIN 01-16 14:16 → INTOOBSV 01-16 14:16
PROVIDERS: ADMIT Family Medicine; ATTEND Family Medicine
PROC: 3E0234Z Introduction of Serum, Toxoid and Vaccine into Muscle, Percutaneous Approach (ICD-10-PCS; principal; 2018-01-16)
DX: N17.9 Acute kidney failure, unspecified (principal); T67.0XXA Heatstroke and sunstroke, initial encounter; I10 Essential (primary) hypertension; E03.9 Hypothyroidism, unspecified; E11.65 Type 2 diabetes mellitus with hyperglycemia; E86.0 Dehydration; X30.XXXA Exposure to excessive natural heat, initial encounter; E78.5 Hyperlipidemia, unspecified; Z88.2 Allergy status to sulfonamides; R74.0 Nonspecific elevation of levels of transaminase and lactic acid dehydrogenase [LDH]; E78.00 Pure hypercholesterolemia, unspecified; K57.30 Diverticulosis of large intestine without perforation or abscess without bleeding; K80.20 Calculus of gallbladder without cholecystitis without obstruction; R74.8 Abnormal levels of other serum enzymes; Z23 Encounter for immunization; M19.90 Unspecified osteoarthritis, unspecified site

== ENCOUNTER 2018-09-29 18:48 | Inpatient (IN) | payer MEDICARE ==
[2018-09-29] MEDS ORDERED: Sodium Chloride 0.9% 1,000 ML IV STA (19:53)
[2018-09-29 20:16] LABS: VENOUS BLOOD GAS BASE EXCESS 5.8 mmol/L (0.0-2.0); VENOUS BLOOD GAS PCO2 47 mmHg (40-60); VENOUS BLOOD GAS PO2 31 mm/Hg (30-55); VENOUS BLOOD PH 7.43 (7.32-7.43)
[2018-09-29 20:19] LABS: INR 1.3; PROTHROMBIN TIME 14.3 Seconds (9.8-13.1)
[2018-09-29 20:22] LABS: PARTIAL THROMBOPLASTIN TIME 32.1 Seconds (25.6-37.1)
[2018-09-29 20:26] LABS: BASO % 0.2 % (0.0-2.0); EOS % 0.2 % (0.0-4.0); HEMOGLOBIN 12.8 g/dL (12.0-16.0); LYMPH # 0.3 K/uL (1.0-4.3); LYMPH % 6.5 % (20.0-40.0); MEAN CELL VOLUME 88.7 fl (81.0-99.0); MEAN CORPUSCULAR HEMOGLOBIN 29.8 pg (27.0-31.0); MEAN CORPUSCULAR HGB CONC 33.6 g/dL (33.0-37.0); MEAN PLATELET VOLUME 9.3 fl (7.2-11.7); MONO # 0.2 K/uL (0.0-0.8); NEUT % 88.1 % (50.0-75.0); PLATELET COUNT 151 K/uL (130-400); RBC 4.31 Mil/uL (3.80-5.20); RED CELL DISTRIBUTION WIDTH 14.1 % (11.5-14.5); WHITE BLOOD COUNT 4.5 K/uL (4.8-10.8)
[2018-09-29 20:27] LABS: BLOOD UREA NITROGEN 24 mg/dl (7-17); CALCIUM 9.4 mg/dL (8.4-10.2); GFR NON-AFRICAN AMERICAN > 60
[2018-09-29 20:28] LABS: ALBUMIN 3.8 g/dL (3.5-5.0); ALT/SGPT 724 U/L (9-52)
--- NOTE | 2018-09-29 20:34 | ED PDOC ---
HPI: General Adult Time Seen by Provider: 09/29/18 19:20 Chief Complaint (Nursing): Weakness/Neurological Deficit Chief Complaint (Provider): Weakness/Neurological Deficit History Per: Patient, Family History/Exam Limitations: no limitations Onset/Duration Of Symptoms: Days Current Symptoms Are (Timing): Still Present Additional Complaint(s): 82 y/o female with a PMHx of HTN, DM and Hypothyroidism brought in by family for evaluation of weakness, fatigue and lethargy. Patient denies any particular complaint. As per triage note, patient was complaining of abdominal pain. However, upon interview patient denies anything including abdominal pain, vomiting, diarrhea, dysuria, cough, Upper Respiratory Symptoms, headache and dizziness. PMD: Marshall Herrera Past Medical History Reviewed: Historical Data, Nursing Documentation, Vital Signs Vital Signs: Last Vital Signs Temp 103.2 F H 09/29/18 20:01 Pulse 114 H 09/29/18 18:52 Resp 20 09/29/18 18:52 BP 137/62 09/29/18 18:52 Pulse Ox 96 09/29/18 18:52 - Medical History PMH: Arthritis, Diabetes, HTN, Hypothyroidism Denies: Chronic Kidney Disease - Surgical History Other surgeries: Orthopedic surgeries - Family History Family History: States: Unknown Family Hx - Social History Current smoker - smoking cessation education provided: No Alcohol: None Drugs: Denies - Immunization History Hx Tetanus Toxoid Vaccination: No Hx Influenza Vaccination: No Hx Pneumococcal Vaccination: No - Home Medications Home Medications: Ambulatory Orders Medication Instructions Recorded Meclizine [Meclizine*] 25 mg PO TID 01/17/15 Carvedilol [Coreg] 12.5 mg PO Q12 01/14/18 Ergocalciferol (Vitamin D2) 50,000 unit PO SUN 01/14/18 [Vitamin D2] Gabapentin [Neurontin] 300 mg PO Q8 01/14/18 Insulin Aspart Prot/Insuln Asp 20 unit SC ACB 01/14/18 [Novolog Mix 70-30 Vial] Levothyroxine [Synthroid] 88 mcg PO DAILY 01/14/18 Losartan [Cozaar] 50 mg PO DAILY 01/14/18 Omeprazole 20 mg PO DAILY 01/14/18 Rosuvastatin Calcium [Crestor] 20 mg PO HS 01/14/18 - Allergies Allergies/Adverse Reactions: Allergies Allergy/AdvReac Type Severity Reaction Status Date / Time Sulfa (Sulfonamide Allergy RASH Verified 09/29/18 18:52 Antibiotics) Review of Systems ROS Statement: Except As Marked, All Systems Reviewed And Found Negative Constitutional: Positive for: Weakness, Other (lethargy and fatigue) Respiratory: Negative for: Cough Gastrointestinal: Negative for: Vomiting, Abdominal Pain, Diarrhea Genitourinary Female: Negative for: Dysuria Neurological: Negative for: Headache, Dizziness Physical Exam - Reviewed Nursing Documentation Reviewed: Yes Vital Signs Reviewed: Yes - Physical Exam Appears: Positive for: No Acute Distress Head Exam: Positive for: ATRAUMATIC, NORMOCEPHALIC Skin: Positive for: Normal Color, Warm, Dry Eye Exam: Positive for: Normal appearance, EOMI, PERRL ENT: Positive for: Normal ENT Inspection Neck: Positive for: Normal, Painless ROM, Supple Cardiovascular/Chest: Positive for: Regular Rate, Rhythm. Negative for: Murmur Respiratory: Positive for: Normal Breath Sounds. Negative for: Respiratory Distress Gastrointestinal/Abdominal: Positive for: Bowel Sounds, Soft, Tenderness (Mild left sided abdominal tenderness). Negative for: Distended, Guarding Back: Positive for: Normal Inspection. Negative for: L CVA Tenderness, R CVA Tenderness, Vertebral Tenderness Extremity: Positive for: Normal ROM. Negative for: Deformity Neurological/Psych: Positive for: Awake, Alert, Oriented. Negative for: Motor/Sensory Deficits - Laboratory Results Result Diagrams: 09/29/18 20:10 09/29/18 20:10 Lab Results: pO2 31 mm/Hg (30-55) 09/29/18 20:12 VBG pH 7.43 (7.32-7.43) 09/29/18 20:12 VBG pCO2 47 mmHg (40-60) 09/29/18 20:12 VBG HCO3 28.5 mmol/L 09/29/18 20:12 VBG Total CO2 32.6 mmol/L (22-28) H 09/29/18 20:12 VBG O2 Sat (Calc) 65.8 % (40-65) H 09/29/18 20:12 VBG Base Excess 5.8 mmol/L (0.0-2.0) H 09/29/18 20:12 VBG Potassium 4.8 mmol/L (3.6-5.2) 09/29/18 20:12 Sodium 138.0 mmol/L (132-148) 09/29/18 20:12 Chloride 106.0 mmol/L (98-107) 09/29/18 20:12 Glucose 137 mg/dL (65-105) H 09/29/18 20:12 Lactate 2.7 mmol/L (0.7-2.1) H 09/29/18 20:12 FiO2 21.0 % 09/29/18 20:12 PT 14.3 Seconds (9.8-13.1) H 09/29/18 20:10 INR 1.3 09/29/18 20:10 APTT 32.1 Seconds (25.6-37.1) 09/29/18 20:10 Total Bilirubin 2.1 mg/dl (0.2-1.3) H 09/29/18 20:10 ALT 724 U/L (9-52) H D 09/29/18 20:10 Alkaline Phosphatase 204 U/L (38-126) H 09/29/18 20:10 Total Protein 7.6 G/DL (6.3-8.2) 09/29/18 20:10 Albumin 3.8 g/dL (3.5-5.0) 09/29/18 20:10 Globulin 3.8 gm/dL (2.2-3.9) 09/29/18 20:10 Albumin/Globulin Ratio 1.0 (1.0-2.1) 09/29/18 20:10 - ECG O2 Sat by Pulse Oximetry: 96 (RA) Pulse Ox Interpretation: Normal Medical Decision Making Medical Decision Making: Time: 1953 Impression: abdominal pain, fever, rule out intraabdominal infection, pneumonia, uti or electrolyte abnormality Plan: -- VBG -- VBG -- EKG -- CMP -- Magnesium -- Phosphorus -- CBC with Differentials -- PTT -- Prothrombin Time -- CXR Portable XR -- Sodium Chloride 0.9% IV 999 mls/hr -- Tylenol 650 mg PO -- Blood Culture -- Urine Culture -- Customer Care Specialist -- ED Rectal Temp -- Vital Signs Q15M -- Urinalysis -- Upon further discussion, patient reports of having constipation. 0000 CT Abdomen/Pelvis FINDINGS: LUNG BASES: A trace posterior right basilar pleural effusion is noted. LIVER: Unremarkable. GALLBLADDER AND BILE DUCTS: The gallbladder appears normal in size and configuration. Minimal dense sludge is seen in the dependent lumen of the gallbladder fundus. No radioopaque gallstones are seen. No biliary ductal dilatation is evident. However, there is pericholecystic edema noted which suggests acute acalculous cholecystitis. Consideration could be given to correlation with gallbladder ultrasound evaluation for further characterization. PANCREAS: Unremarkable. SPLEEN: Unremarkable. ADRENAL GLANDS: Unremarkable. KIDNEYS, URETERS, AND BLADDER: The kidneys appear within normal limits. There is no hydronephrosis or hydroureter. No urinary calculi are seen. The urinary bladder appeared normal in size and configuration. STOMACH AND BOWEL: Unremarkable appearance of the stomach and bowel. No evidence of bowel obstruction. No evidence suggesting enteritis or colitis. Diverticulosis coli is again identified; most numerous in the sigmoid-rectosigmoid segments; and even extending into the rectum. No evidence of acute diverticulitis. APPENDIX: No evidence of acute appendicitis on CT examination. PERITONEUM: No free fluid. No free air. LYMPH NODES: No lymphadenopathy is evident. Multiple periaortic and right lower quadrant mesenteric lymph nodes are seen suggesting mesenteric adenitis. REPRODUCTIVE: Unremarkable as visualized. VASCULATURE: No evidence of abdominal aortic aneurysm. Moderate atherosclerotic vascular plaquing is present. BONES: No aggressive appearing osseous lesion. No acute osseous pathology evident. IMPRESSION: 1. Minimal dense sludge in the dependent lumen of the gallbladder fundus. Pericholecystic edema suggesting acute acalculous cholecystitis. Consideration could be given to correlation with gallbladder ultrasonography. 2. A trace right basilar pleural effusion is noted. 3. Diverticulosis coli. No evidence of acute diverticulitis. 4. Multiple right lower quadrant mesenteric and periaortic lymph nodes are note d. Findings suggest mesenteric adenitis. [id number] --Patient will be admitted for acute acalculous cholecystitis. Will call surgery consult freedom of information officer and Dr. Page who covers patients pcp for admissions. [id number] --Spoke to Dr. Page for patient's admission. iv abx ordered. dr lucio and surgery resident aware of patient. pt and pt daughter aware of findings and plan and need for hospitalization. ____ __ Scribe Attestation: Documented by Yair Campos, acting as a scribe forCarito Ding MD. Provider Scribe Attestation: All medical record entries made by the Scribe were at my direction and pe rsonally dictated by me. I have reviewed the chart and agree that the record accurately reflects my personal performance of the history, physical exam, medical decision making, and the department course for this patient. I have also personally directed, reviewed, and agree with the discharge instructions and disposition. Disposition - Clinical Impression Clinical Impression: Cholecystitis - Patient ED Disposition Is Patient to be Admitted: Yes - Disposition Disposition Time: 01:00 Condition: STABLE
[2018-09-29 20:47] LABS: AST/SGOT 1450 U/L (14-36)
[2018-09-29 22:24] LABS: SQUAMOUS EPITHIAL 1 /hpf (0-5); URINE BACTERIA RARE (<OCC); URINE BILIRUBIN NEGATIVE (NEGATIVE); URINE BLOOD NEGATIVE (NEGATIVE); URINE CLARITY SLIGHTY-CLOUDY (Clear); URINE COLOR AMBER (YELLOW); URINE GLUCOSE (UA) NEG (NEGATIVE); URINE LEUKOCYTE ESTERASE TRACE Leu/uL (Negative); URINE PROTEIN 30 mg/dL (NEGATIVE)
[2018-09-29 22:41] LABS: ANISOCYTOSIS SLIGHT; BANDS 3 % (0-2); EOSINOPHIL 1 % (0-7); LYMPHOCYTE 8 % (20-50); MONOCYTE 6 % (0-10); NEUTROPHIL 82 % (42-75); PLATELET ESTIMATE NORMAL (NORMAL); TOTAL CELLS COUNTED 100
[2018-09-29 22:42] LABS: HYPOCHROMIC SLIGHT; TOXIC GRANULATION PRESENT
[2018-09-30 00:06] LABS: VENOUS BLOOD GAS BASE EXCESS 2.8 mmol/L (0.0-2.0); VENOUS BLOOD GAS PCO2 40 mmHg (40-60); VENOUS BLOOD GAS PO2 51 mm/Hg (30-55); VENOUS BLOOD PH 7.44 (7.32-7.43)
[2018-09-30] MEDS ORDERED: Piperacillin/Tazobact 3.375 GM in Sodium Chloride 0.9% 100 ML IVPB STA (00:32)
[2018-09-30] MEDS ORDERED: Piperacillin/Tazobact 3.375 gm Inj IVPB ONE (00:43)
[2018-09-30] MEDS ORDERED: Sodium Chloride 0.9% 1,000 ML IV STA (02:27)
[2018-09-30 04:57] VITALS: BMI 28.6
[2018-09-30] MEDS ORDERED: HYDROmorphone 1 mg/ml ISec IVP PRN (06:21)
[2018-09-30] MEDS ORDERED: Sodium Chloride 0.9% 1,000 ML IV SCH (06:30)
[2018-09-30] MEDS ORDERED: Dextrose 50% SYRINGE Inj (50 ml) IV PRN (06:33)
[2018-09-30] MEDS ORDERED: Glucagon Recombinant 1 mg Inj IM PRN (06:33)
[2018-09-30] MEDS ORDERED: Dextrose 5%/0.45% NS 1,000 ML IV SCH (07:00)
[2018-09-30 07:14] LABS: BASO % 0.1 % (0.0-2.0); EOS % 0.1 % (0.0-4.0); HEMOGLOBIN 10.2 g/dL (12.0-16.0); LYMPH # 0.7 K/uL (1.0-4.3); LYMPH % 6.7 % (20.0-40.0); MEAN CELL VOLUME 89.3 fl (81.0-99.0); MEAN CORPUSCULAR HEMOGLOBIN 30.2 pg (27.0-31.0); MEAN CORPUSCULAR HGB CONC 33.8 g/dL (33.0-37.0); MEAN PLATELET VOLUME 8.2 fl (7.2-11.7); MONO # 0.6 K/uL (0.0-0.8); MONO % 5.8 % (0.0-10.0); NEUT # 9.3 K/uL (1.8-7.0); NEUT % 87.3 % (50.0-75.0); RBC 3.37 Mil/uL (3.80-5.20); WHITE BLOOD COUNT 10.7 K/uL (4.8-10.8)
[2018-09-30 07:19] LABS: INR 1.5; PROTHROMBIN TIME 17.5 Seconds (9.8-13.1)
[2018-09-30 07:21] LABS: PARTIAL THROMBOPLASTIN TIME 37.1 Seconds (25.6-37.1)
[2018-09-30 07:29] LABS: ALB/GLOB RATIO 0.9 (1.0-2.1); ALBUMIN 2.9 g/dL (3.5-5.0); ALT/SGPT 497 U/L (9-52); AMYLASE 50 U/L (30-110); AST/SGOT 683 U/L (14-36); BLOOD UREA NITROGEN 26 mg/dl (7-17); CALCIUM 7.8 mg/dL (8.4-10.2); GFR NON-AFRICAN AMERICAN 39; LIPASE 40 U/L (23-300)
[2018-09-30 07:54] LABS: T3 0.493 nmol/L (1.49-2.60)
[2018-09-30] MEDS ORDERED: Lactated Ringer's 1,000 ML IV SCH (08:00)
[2018-09-30] MEDS ORDERED: Calcium Gluconate 4.65 mEq/10 ml Inj IVPB ONE (08:05)
--- NOTE | 2018-09-30 08:11 | CP.PCM.CON ---
History of Present Illness - History of Present Illness History of Present Illness: SURGERY CONSULT NOTE FOR DR. ROMERO 82F presents with abdominal pain, nausea and vomiting. Patients state this symptoms started yesterday. Pain was in the right abdomen and also epigastric region. She states last time she ate was yesterday and she was able to tolerate that. Pain has since resolved. Denies any changes in bowel function. Patient had fevers. PMH: DM, HTN, HLD, Hyperthyroid PSH: Left tib/fib ORIF All: Sulfa Past Patient History - Past Medical History & Family History Past Medical History?: Yes - Past Social History Alcohol: None Drugs: Denies - CARDIAC Hx Hypertension: Yes - PULMONARY Hx Respiratory Disorders: No - NEUROLOGICAL Hx Neurological Disorder: Yes - HEENT Hx HEENT Problems: No - RENAL Hx Chronic Kidney Disease: No - ENDOCRINE/METABOLIC Hx Hypothyroidism: Yes - HEMATOLOGICAL/ONCOLOGICAL Hx Blood Disorders: No - INTEGUMENTARY Hx Dermatological Problems: No - MUSCULOSKELETAL/RHEUMATOLOGICAL Hx Arthritis: Yes - PSYCHIATRIC Hx Substance Use: No - SURGICAL HISTORY Hx Surgeries: Yes Hx Musculoskeletal Surgery: Yes (left ankle surgery 2013, left leg surgery in 1993) Hx Orthopedic Surgery: Yes (bilateral shoulder surgery) Other/Comment: left leg sx (tib-fib fx 1989) - ANESTHESIA Hx Anesthesia: Yes Hx Anesthesia Reactions: No Hx Malignant Hyperthermia: No Has any member of the family had a problem w/ anesthesia?: Yes Meds Allergies/Adverse Reactions: Allergies Allergy/AdvReac Type Severity Reaction Status Date / Time Sulfa (Sulfonamide Allergy RASH Verified 09/29/18 18:52 Antibiotics) - Medications Medications: Current Medications Acetaminophen (Tylenol 325mg Tab) 650 mg PO Q4 PRN PRN Reason: Pain, Mild (1-3) Atorvastatin Calcium (Lipitor) 40 mg PO HS JHON Carvedilol (Coreg) 12.5 mg PO Q12 J[facility]ON Dextrose (Dextrose 50% Inj) 0 ml IV STAT PRN; Protocol PRN Reason: Hypoglycemia Protocol Dextrose (Glutose 15) 0 gm PO ONCE PRN; Protocol PRN Reason: Hypoglycemia Protocol Ergocalciferol (Drisdol 50,000 Intl Units Cap) 1 cap PO SUN JHON Gabapentin (Neurontin) 300 mg PO Q8 J[facility]ON Glucagon (Glucagen Diagnostic Kit) 0 mg IM STAT PRN; Protocol PRN Reason: Hypoglycemia Protocol Heparin Sodium (Porcine) (Heparin) 5,000 units SC Q8 J[facility]ON; Protocol Hydromorphone HCl (Dilaudid) 1 mg IVP Q4 PRN PRN Reason: Pain, severe (8-10) Piperacillin Sod/Tazobactam (Sod 3.375 gm/ Sodium Chloride) 100 mls @ 100 mls/hr IVPB Q6 [facility]; Protocol Lactated Ringer's (Lactated Ringer's) 1,000 mls @ 125 mls/hr IV .Q8H [facility] Calcium Gluconate 4.6 meq/ (Sodium Chloride) 109.8924 mls @ 109.892 mls/hr IV ONCE ONE Stop: 09/30/18 09:14 Insulin Human Regular (Humulin R) 0 units SC ACHS [facility]; Protocol Insulin Lispro Protam/Lispro Human (Humalog Mix 75/25) 20 units SC ACB [facility] Levothyroxine Sodium (Synthroid) 88 mcg PO DAILY@0630 [facility] Losartan Potassium (Cozaar) 50 mg PO DAILY [facility] Meclizine HCl (Antivert) 25 mg PO TID [facility] Morphine Sulfate (Morphine) 1 mg IVP Q4 PRN PRN Reason: Pain, moderate (4-7) Ondansetron HCl (Zofran Inj) 4 mg IVP Q4 PRN PRN Reason: Nausea/Vomiting Pantoprazole Sodium (Protonix Inj) 40 mg IVP DAILY [facility] Physical Exam - Constitutional Appears: Non-toxic, No Acute Distress - Eye Exam Eye Exam: EOMI, PERRL - ENT Exam ENT Exam: Mucous Membranes Moist - Respiratory Exam Respiratory Exam: Clear to Auscultation Bilateral, NORMAL BREATHING PATTERN - Cardiovascular Exam Cardiovascular Exam: REGULAR RHYTHM, +S1, +S2 - GI/Abdominal Exam GI & Abdominal Exam: Soft, Tenderness. absent: Distended, Firm, Rebound, Rigid - Extremities Exam Extremities exam: Negative for: pedal edema, tenderness - Neurological Exam Neurological exam: Alert, Oriented x3 - Skin Skin Exam: Dry, Intact, Normal Color, Warm Results - Vital Signs Recent Vital Signs: Last Vital Signs Temp 97.9 F 09/30/18 05:37 Pulse 88 09/30/18 03:02 Resp 18 09/30/18 03:02 BP 100/57 L 09/30/18 03:02 Pulse Ox 96 09/30/18 07:13 - Labs Result Diagrams: 09/30/18 07:05 09/30/18 07:05 Labs: Laboratory Results - last 24 hr 09/29/18 09/29/18 09/29/18 00:02 19:22 20:10 WBC 4.5 L RBC 4.31 Hgb 12.8 Hct 38.2 MCV 88.7 D MCH 29.8 MCHC 33.6 RDW 14.1 Plt Count 151 MPV 9.3 Neut % (Auto) 88.1 H Lymph % (Auto) 6.5 L [place] % (Auto) 5.0 Eos % (Auto) 0.2 Baso % (Auto) 0.2 Neut # (Auto) 4.0 Lymph # (Auto) 0.3 L [place] # (Auto) 0.2 Eos # (Auto) 0.0 Baso # (Auto) 0.0 Neutrophils % (Manual) 82 H Band Neutrophils % 3 H Lymphocytes % (Manual) 8 L Monocytes % (Manual) 6 Eosinophils % (Manual) 1 Toxic Granulation Present Platelet Estimate Normal Hypochromasia (manual) Slight Anisocytosis (manual) Slight PT INR APTT pO2 51 VBG pH 7.44 H VBG pCO2 40 VBG HCO3 26.8 VBG Total CO2 28.4 H VBG O2 Sat (Calc) 91.6 H VBG Base Excess 2.8 H VBG Potassium 3.6 Sodium 139.0 Chloride 108.0 H Glucose 119 H Lactate 2.8 H FiO2 21.0 Potassium Carbon Dioxide Anion Gap BUN Creatinine Est GFR ( Amer) Est GFR (Non-Af Amer) POC Glucose (mg/dL) 141 H Random Glucose Calcium Phosphorus Magnesium Total Bilirubin AST ALT Alkaline Phosphatase Total Protein Albumin Globulin Albumin/Globulin Ratio Amylase Lipase Thyroxine (T4) Total T3 Venous Blood Potassium 3.6 Urine Color Urine Clarity Urine pH Ur Specific [place] Urine Protein Urine Glucose (UA) Urine Ketones Urine Blood Urine Nitrate Urine Bilirubin Urine Urobilinogen Ur Leukocyte Esterase Urine RBC (Auto) Urine Microscopic WBC Ur Squamous Epith Cells Urine Bacteria Blood Type Antibody Screen BBK History Checked 09/29/18 09/29/18 09/29/18 20:10 20:10 20:12 WBC RBC Hgb Hct MCV MCH MCHC RDW Plt Count MPV Neut % (Auto) Lymph % (Auto) Merrick % (Auto) Eos % (Auto) Baso % (Auto) Neut # (Auto) Lymph # (Auto) Merrick # (Auto) Eos # (Auto) Baso # (Auto) Neutrophils % (Manual) Band Neutrophils % Lymphocytes % (Manual) Monocytes % (Manual) Eosinophils % (Manual) Toxic Granulation Platelet Estimate Hypochromasia (manual) Anisocytosis (manual) PT 14.3 H INR 1.3 APTT 32.1 pO2 31 VBG pH 7.43 VBG pCO2 47 VBG HCO3 28.5 VBG Total CO2 32.6 H VBG O2 Sat (Calc) 65.8 H VBG Base Excess 5.8 H VBG Potassium 4.8 Sodium 140 138.0 Chloride 101 106.0 Glucose 137 H Lactate 2.7 H FiO2 21.0 Potassium 4.1 Carbon Dioxide 30 Anion Gap 13 BUN 24 H Creatinine 0.9 Est GFR ( Amer) > 60 Est GFR (Non-Af Amer) > 60 POC Glucose (mg/dL) Random Glucose 130 H Calcium 9.4 Phosphorus 3.0 Magnesium 1.8 Total Bilirubin 2.1 H AST 1450 H ALT 724 H D Alkaline Phosphatase 204 H Total Protein 7.6 Albumin 3.8 Globulin 3.8 Albumin/Globulin Ratio 1.0 Amylase Lipase Thyroxine (T4) Total T3 Venous Blood Potassium 4.8 Urine Color Urine Clarity Urine pH Ur Specific [place] Urine Protein Urine Glucose (UA) Urine Ketones Urine Blood Urine Nitrate Urine Bilirubin Urine Urobilinogen Ur Leukocyte Esterase Urine RBC (Auto) Urine Microscopic WBC Ur Squamous Epith Cells Urine Bacteria Blood Type Antibody Screen BBK History Checked 09/29/18 09/30/18 09/30/18 22:11 01:22 05:56 WBC RBC Hgb Hct MCV MCH MCHC RDW Plt Count MPV Neut % (Auto) Lymph % (Auto) [place] % (Auto) Eos % (Auto) Baso % (Auto) Neut # (Auto) Lymph # (Auto) [place] # (Auto) Eos # (Auto) Baso # (Auto) Neutrophils % (Manual) Band Neutrophils % Lymphocytes % (Manual) Monocytes % (Manual) Eosinophils % (Manual) Toxic Granulation Platelet Estimate Hypochromasia (manual) Anisocytosis (manual) PT INR APTT pO2 VBG pH VBG pCO2 VBG HCO3 VBG Total CO2 VBG O2 Sat (Calc) VBG Base Excess VBG Potassium Sodium Chloride Glucose Lactate FiO2 Potassium Carbon Dioxide Anion Gap BUN Creatinine Est GFR ( Amer) Est GFR (Non-Af Amer) POC Glucose (mg/dL) 121 H 134 H Random Glucose Calcium Phosphorus Magnesium Total Bilirubin AST ALT Alkaline Phosphatase Total Protein Albumin Globulin Albumin/Globulin Ratio Amylase Lipase Thyroxine (T4) Total T3 Venous Blood Potassium Urine Color [place] Urine Clarity Slighty-cloudy Urine pH 7.0 Ur Specific [place] 1.018 Urine Protein 30 Urine Glucose (UA) Neg Urine Ketones Negative Urine Blood Negative Urine Nitrate Negative Urine Bilirubin Negative Urine Urobilinogen 4.0 H Ur Leukocyte Esterase Trace Urine RBC (Auto) 2 Urine Microscopic WBC 6 H Ur Squamous Epith Cells 1 Urine Bacteria Rare Blood Type Antibody Screen BBK History Checked 09/30/18 09/30/18 09/30/18 07:05 07:05 07:05 WBC 10.7 D RBC 3.37 L Hgb 10.2 L D Hct 30.1 L MCV 89.3 MCH 30.2 MCHC 33.8 RDW 14.0 Plt Count 112 L D MPV 8.2 Neut % (Auto) 87.3 H Lymph % (Auto) 6.7 L [place] % (Auto) 5.8 Eos % (Auto) 0.1 Baso % (Auto) 0.1 Neut # (Auto) 9.3 H Lymph # (Auto) 0.7 L [place] # (Auto) 0.6 Eos # (Auto) 0.0 Baso # (Auto) 0.0 Neutrophils % (Manual) Band Neutrophils % Lymphocytes % (Manual) Monocytes % (Manual) Eosinophils % (Manual) Toxic Granulation Platelet Estimate Hypochromasia (manual) Anisocytosis (manual) PT 17.5 H INR 1.5 APTT 37.1 pO2 VBG pH VBG pCO2 VBG HCO3 VBG Total CO2 VBG O2 Sat (Calc) VBG Base Excess VBG Potassium Sodium 142 Chloride 107 Glucose Lactate FiO2 Potassium 4.0 Carbon Dioxide 26 Anion Gap 13 BUN 26 H Creatinine 1.3 H Est GFR ( Amer) 48 Est GFR (Non-Af Amer) 39 POC Glucose (mg/dL) Random Glucose 125 H Calcium 7.8 L Phosphorus 6.0 H Magnesium 1.7 Total Bilirubin 3.0 H AST 683 H D ALT 497 H D Alkaline Phosphatase 115 Total Protein 5.9 L Albumin 2.9 L D Globulin 3.1 Albumin/Globulin Ratio 0.9 L Amylase 50 Lipase 40 Thyroxine (T4) 7.71 Total T3 0.493 L Venous Blood Potassium Urine Color Urine Clarity Urine pH Ur Specific [place] Urine Protein Urine Glucose (UA) Urine Ketones Urine Blood Urine Nitrate Urine Bilirubin Urine Urobilinogen Ur Leukocyte Esterase Urine RBC (Auto) Urine Microscopic WBC Ur Squamous Epith Cells Urine Bacteria Blood Type Antibody Screen BBK History Checked 09/30/18 07:05 WBC RBC Hgb Hct MCV MCH MCHC RDW Plt Count MPV Neut % (Auto) Lymph % (Auto) [place] % (Auto) Eos % (Auto) Baso % (Auto) Neut # (Auto) Lymph # (Auto) [place] # (Auto) Eos # (Auto) Baso # (Auto) Neutrophils % (Manual) Band Neutrophils % Lymphocytes % (Manual) Monocytes % (Manual) Eosinophils % (Manual) Toxic Granulation Platelet Estimate Hypochromasia (manual) Anisocytosis (manual) PT INR APTT pO2 VBG pH VBG pCO2 VBG HCO3 VBG Total CO2 VBG O2 Sat (Calc) VBG Base Excess VBG Potassium Sodium Chloride Glucose Lactate FiO2 Potassium Carbon Dioxide Anion Gap BUN Creatinine Est GFR ( Amer) Est GFR (Non-Af Amer) POC Glucose (mg/dL) Random Glucose Calcium Phosphorus Magnesium Total Bilirubin AST ALT Alkaline Phosphatase Total Protein Albumin Globulin Albumin/Globulin Ratio Amylase Lipase Thyroxine (T4) Total T3 Venous Blood Potassium Urine Color Urine Clarity Urine pH Ur Specific [place] Urine Protein Urine Glucose (UA) Urine Ketones Urine Blood Urine Nitrate Urine Bilirubin Urine Urobilinogen Ur Leukocyte Esterase Urine RBC (Auto) Urine Microscopic WBC Ur Squamous Epith Cells Urine Bacteria Blood Type B POSITIVE Antibody Screen Negative BBK History Checked No verified bt Assessment & Plan - Assessment and Plan (Free Text) Assessment: 82F with cholecystitis, possible choledocholithiasis CT: cholecystitis, mesenteric adenitis Plan: NPO IVF Pain control Antibiotics MRCP AM labs Further recs discuss with Dr. Lenard Mishra, PGY3
[2018-09-30] MEDS ORDERED: Lactated Ringer's 500 ML IV SCH (08:15)
[2018-09-30] MEDS ORDERED: Calcium Gluconate 4.6 MEQ in Sodium Chloride 0.9% 100 ML IV ONE (08:15)
[2018-09-30] MEDS ORDERED: Gadodiamide 287 MG/ML VIAL (15ML) IV ONE (08:30)
[2018-09-30] MEDS ORDERED: Sodium Chloride 0.9% 50 ML IV ONE (08:31)
[2018-09-30] MEDS ORDERED: Phytonadione 10 mg/ml Inj (Adult) IV ONE (09:26)
[2018-09-30] MEDS ORDERED: Phytonadione 10 MG in Sodium Chloride 0.9% 50 ML IV ONE (09:30)
[2018-09-30] MEDS: Insulin Lispro Mix 75/25 100 units/ml (HumaLog) 10ml SC SCH (09:52)
[2018-09-30] MEDS: Insulin Regular 100 units/ml SC SCH ×4 (09:52→21:58)
[2018-09-30] MEDS: Piperacillin/Tazobact 3.375 GM in Sodium Chloride 0.9% 100 ML IVPB SCH ×3 (10:17→21:29)
[2018-09-30 10:20] LABS: HDL CHOLESTEROL 31 MG/DL (30-70)
[2018-09-30 10:45] LABS: LDL CHOLESTEROL < 30 mg/dL (0-129)
--- NOTE | 2018-09-30 10:52 | CP.PCM.CON ---
History of Present Illness - History of Present Illness History of Present Illness: Infectious Disease Consultation Note- Asked to see this patient at the request of for help with antibiotic management for cholecystitis. HPI- Patient is a pleasant 82 year old female with PMH of HTN, hypothyroidism and DM II who was brought in by her family because she was noted to be fatigued and slightly lethargic and was noted to also have a bucket full of vomit and hence her daughter brought her in to the hospital for further evaluation and treatment. In the ED she was found to have fever of 103 and elevated liver enzymes and ct was reported as acalculous cholecystitis and hence she was admitted for further evaluation and treatment. currently pt. is awake and alert and she states she feels better but does c/o pain in left lower abdominal region. She denies any ROSS, denies any cough or sob, denies any nausea now but had it at home for one day with one episode of vomiting. She denies any diarrhea, denies any dysurea, denies any sick contacts. Allergy- sulfa ( facial swelling) Review of Systems - Review of Systems Review of Systems: ROS- denies any fever or chills now but had fever of 103 in ED, denies any ROSS, denies any cough or sob, denies any chest pain, + left lower abd. pain, had nause and vomiting at home but not now, denies any dysurea, denies any diarrhea denies any sick contacts Past Patient History - Past Medical History & Family History Past Medical History?: Yes - Past Social History Alcohol: None Drugs: Denies Home Situation {Lives}: With Family - CARDIAC Hx Hypertension: Yes - PULMONARY Hx Respiratory Disorders: No - NEUROLOGICAL Hx Neurological Disorder: Yes - HEENT Hx HEENT Problems: No - RENAL Hx Chronic Kidney Disease: No - ENDOCRINE/METABOLIC Hx Diabetes Mellitus Type 2: Yes Hx Hypothyroidism: Yes - HEMATOLOGICAL/ONCOLOGICAL Hx Blood Disorders: No - INTEGUMENTARY Hx Dermatological Problems: No - MUSCULOSKELETAL/RHEUMATOLOGICAL Hx Arthritis: Yes - PSYCHIATRIC Hx Substance Use: No - SURGICAL HISTORY Hx Surgeries: Yes Hx Musculoskeletal Surgery: Yes (left ankle surgery 2013, left leg surgery in 1993) Hx Orthopedic Surgery: Yes (bilateral shoulder surgery) Other/Comment: left leg sx (tib-fib fx 1989) - ANESTHESIA Hx Anesthesia: Yes Hx Anesthesia Reactions: No Hx Malignant Hyperthermia: No Has any member of the family had a problem w/ anesthesia?: Yes Meds Allergies/Adverse Reactions: Allergies Allergy/AdvReac Type Severity Reaction Status Date / Time Sulfa (Sulfonamide Allergy RASH Verified 09/29/18 18:52 Antibiotics) - Medications Medications: Current Medications Dextrose (Dextrose 50% Inj) 0 ml IV STAT PRN; Protocol PRN Reason: Hypoglycemia Protocol Dextrose (Glutose 15) 0 gm PO ONCE PRN; Protocol PRN Reason: Hypoglycemia Protocol Gabapentin (Neurontin) 300 mg PO Q8 [facility] Last Admin: 09/30/18 10:17 Dose: Not Given Glucagon (Glucagen Diagnostic Kit) 0 mg IM STAT PRN; Protocol PRN Reason: Hypoglycemia Protocol Heparin Sodium (Porcine) (Heparin) 5,000 units SC Q8 [facility]; Protocol Last Admin: 09/30/18 10:28 Dose: 5,000 units Piperacillin Sod/Tazobactam (Sod 3.375 gm/ Sodium Chloride) 100 mls @ 100 mls/hr IVPB Q6 [facility]; Protocol Last Admin: 09/30/18 10:17 Dose: 100 mls/hr Lactated Ringer's (Lactated Ringer's) 1,000 mls @ 125 mls/hr IV .Q8H [facility] Last Admin: 09/30/18 10:11 Dose: 125 mls/hr Insulin Human Regular (Humulin R) 0 units SC ACHS [facility]; Protocol Last Admin: 09/30/18 09:52 Dose: Not Given Insulin Lispro Protam/Lispro Human (Humalog Mix 75/25) 20 units SC ACB [facility] Last Admin: 09/30/18 09:52 Dose: Not Given Levothyroxine Sodium (Synthroid) 88 mcg PO DAILY@0630 [facility] Morphine Sulfate (Morphine) 1 mg IVP Q4 PRN PRN Reason: Pain, moderate (4-7) Ondansetron HCl (Zofran Inj) 4 mg IVP Q4 PRN PRN Reason: Nausea/Vomiting Pantoprazole Sodium (Protonix Inj) 40 mg IVP DAILY [facility] Last Admin: 09/30/18 10:16 Dose: 40 mg Physical Exam - Constitutional Appears: No Acute Distress - Head Exam Head Exam: ATRAUMATIC - Eye Exam Eye Exam: EOMI - ENT Exam ENT Exam: Normal Oropharynx - Neck Exam Neck exam: Positive for: Full Rom - Respiratory Exam Respiratory Exam: Clear to Auscultation Bilateral, NORMAL BREATHING PATTERN - Cardiovascular Exam Cardiovascular Exam: RRR, +S1, +S2 - GI/Abdominal Exam GI & Abdominal Exam: Normal Bowel Sounds, Soft Additional comments: Pain in left lower abd with palpation No guarding No rebound - Extremities Exam Extremities exam: Positive for: normal inspection - Neurological Exam Neurological exam: Alert, Oriented x3 Results - Vital Signs Recent Vital Signs: Last Vital Signs Temp 98.4 F 09/30/18 09:00 Pulse 80 09/30/18 09:00 Resp 20 09/30/18 09:00 BP 109/67 09/30/18 09:00 Pulse Ox 96 09/30/18 09:00 - Labs Result Diagrams: 09/30/18 07:05 09/30/18 07:05 Labs: Laboratory Results - last 24 hr 09/29/18 09/29/18 09/29/18 00:02 19:22 20:10 WBC 4.5 L RBC 4.31 Hgb 12.8 Hct 38.2 MCV 88.7 D MCH 29.8 MCHC 33.6 RDW 14.1 Plt Count 151 MPV 9.3 Neut % (Auto) 88.1 H Lymph % (Auto) 6.5 L [place] % (Auto) 5.0 Eos % (Auto) 0.2 Baso % (Auto) 0.2 Neut # (Auto) 4.0 Lymph # (Auto) 0.3 L [place] # (Auto) 0.2 Eos # (Auto) 0.0 Baso # (Auto) 0.0 Neutrophils % (Manual) 82 H Band Neutrophils % 3 H Lymphocytes % (Manual) 8 L Monocytes % (Manual) 6 Eosinophils % (Manual) 1 Toxic Granulation Present Platelet Estimate Normal Hypochromasia (manual) Slight Anisocytosis (manual) Slight PT INR APTT pO2 51 VBG pH 7.44 H VBG pCO2 40 VBG HCO3 26.8 VBG Total CO2 28.4 H VBG O2 Sat (Calc) 91.6 H VBG Base Excess 2.8 H VBG Potassium 3.6 Sodium 139.0 Chloride 108.0 H Glucose 119 H Lactate 2.8 H FiO2 21.0 Potassium Carbon Dioxide Anion Gap BUN Creatinine Est GFR ( Amer) Est GFR (Non-Af Amer) POC Glucose (mg/dL) 141 H Random Glucose Calcium Phosphorus Magnesium Total Bilirubin AST ALT Alkaline Phosphatase Total Protein Albumin Globulin Albumin/Globulin Ratio Triglycerides Cholesterol LDL Cholesterol Direct HDL Cholesterol Amylase Lipase Thyroxine (T4) Total T3 Venous Blood Potassium 3.6 Urine Color Urine Clarity Urine pH Ur Specific [place] Urine Protein Urine Glucose (UA) Urine Ketones Urine Blood Urine Nitrate Urine Bilirubin Urine Urobilinogen Ur Leukocyte Esterase Urine RBC (Auto) Urine Microscopic WBC Ur Squamous Epith Cells Urine Bacteria Blood Type Blood Type Confirm Antibody Screen BBK History Checked 09/29/18 09/29/18 09/29/18 20:10 20:10 20:12 WBC RBC Hgb Hct MCV MCH MCHC RDW Plt Count MPV Neut % (Auto) Lymph % (Auto) [place] % (Auto) Eos % (Auto) Baso % (Auto) Neut # (Auto) Lymph # (Auto) [place] # (Auto) Eos # (Auto) Baso # (Auto) Neutrophils % (Manual) Band Neutrophils % Lymphocytes % (Manual) Monocytes % (Manual) Eosinophils % (Manual) Toxic Granulation Platelet Estimate Hypochromasia (manual) Anisocytosis (manual) PT 14.3 H INR 1.3 APTT 32.1 pO2 31 VBG pH 7.43 VBG pCO2 47 VBG HCO3 28.5 VBG Total CO2 32.6 H VBG O2 Sat (Calc) 65.8 H VBG Base Excess 5.8 H VBG Potassium 4.8 Sodium 140 138.0 Chloride 101 106.0 Glucose 137 H Lactate 2.7 H FiO2 21.0 Potassium 4.1 Carbon Dioxide 30 Anion Gap 13 BUN 24 H Creatinine 0.9 Est GFR ( Amer) > 60 Est GFR (Non-Af Amer) > 60 POC Glucose (mg/dL) Random Glucose 130 H Calcium 9.4 Phosphorus 3.0 Magnesium 1.8 Total Bilirubin 2.1 H AST 1450 H ALT 724 H D Alkaline Phosphatase 204 H Total Protein 7.6 Albumin 3.8 Globulin 3.8 Albumin/Globulin Ratio 1.0 Triglycerides Cholesterol LDL Cholesterol Direct HDL Cholesterol Amylase Lipase Thyroxine (T4) Total T3 Venous Blood Potassium 4.8 Urine Color Urine Clarity Urine pH Ur Specific [place] Urine Protein Urine Glucose (UA) Urine Ketones Urine Blood Urine Nitrate Urine Bilirubin Urine Urobilinogen Ur Leukocyte Esterase Urine RBC (Auto) Urine Microscopic WBC Ur Squamous Epith Cells Urine Bacteria Blood Type Blood Type Confirm Antibody Screen BBK History Checked 09/29/18 09/30/18 09/30/18 22:11 01:22 05:56 WBC RBC Hgb Hct MCV MCH MCHC RDW Plt Count MPV Neut % (Auto) Lymph % (Auto) [place] % (Auto) Eos % (Auto) Baso % (Auto) Neut # (Auto) Lymph # (Auto) [place] # (Auto) Eos # (Auto) Baso # (Auto) Neutrophils % (Manual) Band Neutrophils % Lymphocytes % (Manual) Monocytes % (Manual) Eosinophils % (Manual) Toxic Granulation Platelet Estimate Hypochromasia (manual) Anisocytosis (manual) PT INR APTT pO2 VBG pH VBG pCO2 VBG HCO3 VBG Total CO2 VBG O2 Sat (Calc) VBG Base Excess VBG Potassium Sodium Chloride Glucose Lactate FiO2 Potassium Carbon Dioxide Anion Gap BUN Creatinine Est GFR ( Amer) Est GFR (Non-Af Amer) POC Glucose (mg/dL) 121 H 134 H Random Glucose Calcium Phosphorus Magnesium Total Bilirubin AST ALT Alkaline Phosphatase Total Protein Albumin Globulin Albumin/Globulin Ratio Triglycerides Cholesterol LDL Cholesterol Direct HDL Cholesterol Amylase Lipase Thyroxine (T4) Total T3 Venous Blood Potassium Urine Color [place] Urine Clarity Slighty-cloudy Urine pH 7.0 Ur Specific [place] 1.018 Urine Protein 30 Urine Glucose (UA) Neg Urine Ketones Negative Urine Blood Negative Urine Nitrate Negative Urine Bilirubin Negative Urine Urobilinogen 4.0 H Ur Leukocyte Esterase Trace Urine RBC (Auto) 2 Urine Microscopic WBC 6 H Ur Squamous Epith Cells 1 Urine Bacteria Rare Blood Type Blood Type Confirm Antibody Screen BBK History Checked 09/30/18 09/30/18 09/30/18 07:05 07:05 07:05 WBC 10.7 D RBC 3.37 L Hgb 10.2 L D Hct 30.1 L MCV 89.3 MCH 30.2 MCHC 33.8 RDW 14.0 Plt Count 112 L D MPV 8.2 Neut % (Auto) 87.3 H Lymph % (Auto) 6.7 L [place] % (Auto) 5.8 Eos % (Auto) 0.1 Baso % (Auto) 0.1 Neut # (Auto) 9.3 H Lymph # (Auto) 0.7 L [place] # (Auto) 0.6 Eos # (Auto) 0.0 Baso # (Auto) 0.0 Neutrophils % (Manual) Band Neutrophils % Lymphocytes % (Manual) Monocytes % (Manual) Eosinophils % (Manual) Toxic Granulation Platelet Estimate Hypochromasia (manual) Anisocytosis (manual) PT 17.5 H INR 1.5 APTT 37.1 pO2 VBG pH VBG pCO2 VBG HCO3 VBG Total CO2 VBG O2 Sat (Calc) VBG Base Excess VBG Potassium Sodium 142 Chloride 107 Glucose Lactate FiO2 Potassium 4.0 Carbon Dioxide 26 Anion Gap 13 BUN 26 H Creatinine 1.3 H Est GFR ( Amer) 48 Est GFR (Non-Af Amer) 39 POC Glucose (mg/dL) Random Glucose 125 H Calcium 7.8 L Phosphorus 6.0 H Magnesium 1.7 Total Bilirubin 3.0 H AST 683 H D ALT 497 H D Alkaline Phosphatase 115 Total Protein 5.9 L Albumin 2.9 L D Globulin 3.1 Albumin/Globulin Ratio 0.9 L Triglycerides 82 D Cholesterol 57 LDL Cholesterol Direct < 30 HDL Cholesterol 31 Amylase 50 Lipase 40 Thyroxine (T4) 7.71 Total T3 0.493 L Venous Blood Potassium Urine Color Urine Clarity Urine pH Ur Specific [place] Urine Protein Urine Glucose (UA) Urine Ketones Urine Blood Urine Nitrate Urine Bilirubin Urine Urobilinogen Ur Leukocyte Esterase Urine RBC (Auto) Urine Microscopic WBC Ur Squamous Epith Cells Urine Bacteria Blood Type Blood Type Confirm Antibody Screen BBK History Checked 09/30/18 09/30/18 07:05 08:02 WBC RBC Hgb Hct MCV MCH MCHC RDW Plt Count MPV Neut % (Auto) Lymph % (Auto) [place] % (Auto) Eos % (Auto) Baso % (Auto) Neut # (Auto) Lymph # (Auto) [place] # (Auto) Eos # (Auto) Baso # (Auto) Neutrophils % (Manual) Band Neutrophils % Lymphocytes % (Manual) Monocytes % (Manual) Eosinophils % (Manual) Toxic Granulation Platelet Estimate Hypochromasia (manual) Anisocytosis (manual) PT INR APTT pO2 VBG pH VBG pCO2 VBG HCO3 VBG Total CO2 VBG O2 Sat (Calc) VBG Base Excess VBG Potassium Sodium Chloride Glucose Lactate FiO2 Potassium Carbon Dioxide Anion Gap BUN Creatinine Est GFR ( Amer) Est GFR (Non-Af Amer) POC Glucose (mg/dL) Random Glucose Calcium Phosphorus Magnesium Total Bilirubin AST ALT Alkaline Phosphatase Total Protein Albumin Globulin Albumin/Globulin Ratio Triglycerides Cholesterol LDL Cholesterol Direct HDL Cholesterol Amylase Lipase Thyroxine (T4) Total T3 Venous Blood Potassium Urine Color Urine Clarity Urine pH Ur Specific [place] Urine Protein Urine Glucose (UA) Urine Ketones Urine Blood Urine Nitrate Urine Bilirubin Urine Urobilinogen Ur Leukocyte Esterase Urine RBC (Auto) Urine Microscopic WBC Ur Squamous Epith Cells Urine Bacteria Blood Type B POSITIVE Blood Type Confirm B POSITIVE Antibody Screen Negative BBK History Checked No verified bt Accession No. : [id number] Patient Name / ID : BINDU MALIK / [id number] Exam Date : 09/29/2018 22:58:43 ( Approved ) Study Comment : Sex / Age : F / 82Y Creator : Tim Corey MD Dictator : Tim Corey MD Machine Fancy Stitcher : Field Crop Grower : Tim Corey MD Approver2 : Report Date : 09/30/2018 11:01:04 My Comment : Date of service: 09/29/2018 PROCEDURE: CT Abdomen and Pelvis without intravenous contrast HISTORY: abd pain COMPARISON: Abdomen pelvis CT with contrast 01/16/2018. TECHNIQUE: Helical CT of the abdomen and pelvis was performed without oral or intravenous contrast as per referring physician request. Coronal and sagittal reformats were generated. Contrast dose: None Radiation dose: Total exam DLP = 477.96 mGy-cm. This CT exam was performed using one or more of the following dose reduction techniques: Automated exposure control, adjustment of the mA and/or kV according to patient size, and/or use of iterative reconstruction technique. FINDINGS: LOWER THORAX: Interval limited linear atelectasis or fibrosis in the left lower lobe base. Trace right pleural effusion noted exerting element of compression atelectasis at dependent right lower lobe. LIVER: Mild hepatomegaly without definitive no gross lesion or ductal dilatation identified in this unenhanced exam. GALLBLADDER AND BILE DUCTS: A distended gallbladder is appreciated with sludge and probable cholelithiasis. No definite pericholecystic fluid collection or prominent mural thickening, however, hazy peripheral margins of the gallbladder may indicate inflammation nevertheless. Clinically correlate for potential cholecystitis. PANCREAS: Unremarkable. No gross lesion or ductal dilatation. SPLEEN: Unremarkable. ADRENALS: Unremarkable. No mass. KIDNEYS AND URETERS: No definite hydronephrosis bilaterally or radiodense urolithiasis either. Urinary bladder is minimally distended with no radiodense urolithiasis within the lumen. [id number] right perinephric streaky reaction may indicate pyelonephritis or residual uropathy from now relieved obstruction. The ureters are normal caliber throughout with no radiodense urolithiasis associated. Further clinical correlation is advised. VASCULATURE: Nonaneurysmal abdominal aortic calcific atherosclerotic changes are identified. BOWEL: Left greater than right colonic diverticula, nonacute. No bowel obstruction. [id number] fecal loading seen throughout the colon. No definitive suspicious small bowel findings. The stomach is completely decompressed and is not adequately evaluated. Small hiatal hernia is identified. APPENDIX: Unremarkable. Normal appendix. PERITONEUM: Tiny umbilical hernia is reiterated containing only fat. No measure edema, ascites free intra peritoneal gas or at the abdomen. LYMPH NODES: Unremarkable. No enlarged lymph nodes. BLADDER: Unremarkable. REPRODUCTIVE: Trace fluid is seen the inferior right pelvic perineal space of uncertain origin. BONES: Degenerative grade 1 spondylolisthesis L4-5 with L4 slightly anterior to L5. No definite spondylolysis. Advanced multilevel facet joint degenerative changes are appreciated primarily at the inferior lumbar spine. OTHER FINDINGS: None. IMPRESSION: 1. Right perinephric reaction is appreciate without hydronephrosis and is suspicious for potential residual uropathy related to relieved right-sided potential ureteral obstruction though the right ureter is unremarkable. More worrisome would be for possible pyelonephritis or right renal inflammatory process. Clinically correlate further. 2. Distended gallbladder is appreciate with cholelithiasis and sludge in a pattern that may reflect cholecystitis. Clinically correlate further. 3. Mild hepatomegaly without biliary tree dilatation or gross mass apparent in this unenhanced exam. 4. Scattered colonic diverticulosis, left greater than right, nonacute. Discordant with preliminary report provided by [facility] rad 09/30/2018 12 a.m. regarding impression 1. Findings discussed with Nurse Wright (currently caring for the patient on the hospital's 6 floor) with written down and read back verification 09/30/2018, 10:55 a.m..Accession No. : [id number] Patient Name / ID : BINDU MALIK / [id number] Exam Date : 09/30/2018 01:45:12 ( Approved ) Study Comment : Sex / Age : F / 82Y Creator : Merlyn Castillo MD Dictator : Merlyn Castillo MD Machine Fancy Stitcher : [employer] C[employer] Grower : Merlyn Castillo MD Approver2 : Report Date : 09/30/2018 11:51:31 My Comment : Date of service: 09/30/2018 HISTORY: acalc priscilla COMPARISON: None. TECHNIQUE: Sonographic evaluation of the right upper quadrant of the abdomen. FINDINGS: LIVER: Measures 14.0 cm in length. Normal echogenicity of the liver parenchyma. No mass. No intrahepatic bile duct dilatation. GALLBLADDER: There are multiple small gallstones and diffuse gallbladder wall thickening. Mild pericholecystic fluid. The sonographic Sanchez's sign is negative. COMMON BILE DUCT: Measures 3.9 mm. No stones. No dilatation. PANCREAS: Unremarkable as visualized. No mass. No ductal dilatation. RIGHT KIDNEY: Measures 8.7 cm in length. Normal echogenicity. No calculus, mass, or hydronephrosis. AORTA: No aneurysmal dilatation. IVC: Unremarkable. OTHER FINDINGS: None . IMPRESSION: Findings may represent acute calculus cholecystitis in the appropriate clinical setting. A preliminary report was provided by [facility]. Assessment & Plan (1) Cholecystitis Status: Acute (2) Diabetes type 2, uncontrolled Status: Acute (3) Elevated liver enzymes Status: Acute (4) UTI (urinary tract infection) Status: Acute - Assessment and Plan (Free Text) Assessment: A/P- 82 year old female with multiple medical conditions including DM II, Hypothyroidism, HTN admitted with lethargy, fatigue found to have high fever and elavated LFTs and cholecystitis and possibly right Pyelonephritis as per CT report. clinically better today. afebrile today so far. s/p MRCP earlier today - await report her symptoms could be secondary to both cholecystitis and Possible right pyelo a s well has mildly Positive UA. plan- check Urine cx. check blood cx x 2. In the interim agree with IV zosyn that was already started by the admitting doc. check hepatitis panel as well. all labs and imaging and chart notes reviewed. all above d/w patient and her daughter who is at bedside and they verbalize full understanding of all above and agree with above plan of care. Thank you for allowing me to take part in the care of this patietn.
--- NOTE | 2018-09-30 11:04 | CT ---
Date of service: 09/29/2018 PROCEDURE: CT Abdomen and Pelvis without intravenous contrast HISTORY: abd pain COMPARISON: Abdomen pelvis CT with contrast 01/16/2018. TECHNIQUE: Helical CT of the abdomen and pelvis was performed without oral or intravenous contrast as per referring physician request. Coronal and sagittal reformats were generated. Contrast dose: None Radiation dose: Total exam DLP = 477.96 mGy-cm. This CT exam was performed using one or more of the following dose reduction techniques: Automated exposure control, adjustment of the mA and/or kV according to patient size, and/or use of iterative reconstruction technique. FINDINGS: LOWER THORAX: Interval limited linear atelectasis or fibrosis in the left lower lobe base. Trace right pleural effusion noted exerting element of compression atelectasis at dependent right lower lobe. LIVER: Mild hepatomegaly without definitive no gross lesion or ductal dilatation identified in this unenhanced exam. GALLBLADDER AND BILE DUCTS: A distended gallbladder is appreciated with sludge and probable cholelithiasis. No definite pericholecystic fluid collection or prominent mural thickening, however, hazy peripheral margins of the gallbladder may indicate inflammation nevertheless. Clinically correlate for potential cholecystitis. PANCREAS: Unremarkable. No gross lesion or ductal dilatation. SPLEEN: Unremarkable. ADRENALS: Unremarkable. No mass. KIDNEYS AND URETERS: No definite hydronephrosis bilaterally or radiodense urolithiasis either. Urinary bladder is minimally distended with no radiodense urolithiasis within the lumen. [id number] right perinephric streaky reaction may indicate pyelonephritis or residual uropathy from now relieved obstruction. The ureters are normal caliber throughout with no radiodense urolithiasis associated. Further clinical correlation is advised. VASCULATURE: Nonaneurysmal abdominal aortic calcific atherosclerotic changes are identified. BOWEL: Left greater than right colonic diverticula, nonacute. No bowel obstruction. [id number] fecal loading seen throughout the colon. No definitive suspicious small bowel findings. The stomach is completely decompressed and is not adequately evaluated. Small hiatal hernia is identified. APPENDIX: Unremarkable. Normal appendix. PERITONEUM: Tiny umbilical hernia is reiterated containing only fat. No measure edema, ascites free intra peritoneal gas or at the abdomen. LYMPH NODES: Unremarkable. No enlarged lymph nodes. BLADDER: Unremarkable. REPRODUCTIVE: Trace fluid is seen the inferior right pelvic perineal space of uncertain origin. BONES: Degenerative grade 1 spondylolisthesis L4-5 with L4 slightly anterior to L5. No definite spondylolysis. Advanced multilevel facet joint degenerative changes are appreciated primarily at the inferior lumbar spine. OTHER FINDINGS: None. IMPRESSION: 1. Right perinephric reaction is appreciate without hydronephrosis and is suspicious for potential residual uropathy related to relieved right-sided potential ureteral obstruction though the right ureter is unremarkable. More worrisome would be for possible pyelonephritis or right renal inflammatory process. Clinically correlate further. 2. Distended gallbladder is appreciate with cholelithiasis and sludge in a pattern that may reflect cholecystitis. Clinically correlate further. 3. Mild hepatomegaly without biliary tree dilatation or gross mass apparent in this unenhanced exam. 4. Scattered colonic diverticulosis, left greater than right, nonacute. Discordant with preliminary report provided by [facility] rad 09/30/2018 12 a.m. regarding impression 1. Findings discussed with Nurse Wright (currently caring for the patient on the hospital's 6 floor) with written down and read back verification 09/30/2018, 10:55 a.m..
--- NOTE | 2018-09-30 11:25 | CARD ---
APPROVED REPORT Date of service: 09/29/2018 EKG Measurement Heart [id number] <Conclusion> Sinus tachycardia Minimal voltage criteria for LVH, may be normal variant Nonspecific ST and T wave abnormality Abnormal ECG
--- NOTE | 2018-09-30 11:53 | CARD ---
APPROVED REPORT Date of service: 09/30/2018 EXAM: Two-dimensional and M-mode echocardiogram with Doppler and color Doppler. Other Information Quality : GoodRhythm : NSR INDICATION Abnormal EKG/Arrhythmia 2D DIMENSIONS IVSd0.92 (0.7-1.1cm)LVDd3.84 (3.9-5.9cm) LVOT Diameter1.81 (1.8-2.4cm)PWd0.81 (0.7-1.1cm) IVSs1.27 (0.8-1.2cm)LVDs2.58 (2.5-4.0cm) FS (%) 32.9 %PWs1.20 (0.8-1.2cm) M-Mode DIMENSIONS Left Atrium (MM)3.55 (2.5-4.0cm)IVSd1.00 (0.7-1.1cm) Aortic Root2.88 (2.2-3.7cm)LVDd4.43 (4.0-5.6cm) Aortic Cusp Exc.1.67 (1.5-2.0cm)PWd0.95 (0.7-1.1cm) IVSs1.42 cmFS (%) 41 % LVDs2.63 (2.0-3.8cm)PWs1.31 cm Aortic Valve AoV Peak Oalhwirp416.5cm/sAoV VTI23.7cmAO Peak GR.6mmHg LVOT Peak Dtpjzjnq81.8cm/sLVOT VTI21.02cmAO Mean GR.3mmHg PADMINI (VMAX)1.76fr3WUV (VTI)1.44cm2 Mitral Valve MV E Alfjmies15.8cm/sMV DECEL [id number] A Dmvcvxqs173.2cm/s MV KGN47wqL/A ratio0.8MVA (PHT)2.98cm2 TDI Lateral E' Peak V9.78cm/sMedial E' Peak V8.64cm/sE/Lateral E'8.7 E/Medial E'9.8 Tricuspid Valve TR Peak Elzyutpl234zn/sRAP ZCWBDRWV72coVxEV Peak Gr.26mmHg [id number] LEFT VENTRICLE The left ventricle is normal size. There is normal left ventricular wall thickness. The left ventricular systolic function is normal. The estimated ejection fraction is 55-60% No regional wall motion abnormalities noted.. Transmitral Doppler flow pattern is Grade I-abnormal relaxation pattern. No left ventricle thrombus noted on this study. There is no ventricular septal defect visualized. There is no left ventricular aneurysm. There is no mass noted in the left ventricle. RIGHT VENTRICLE The right ventricle is normal size. There is normal right ventricular wall thickness. The right ventricular systolic function is normal. ATRIA The left atrium size is normal. The right atrium size is normal. The interatrial septum is intact with no evidence for an atrial septal defect. AORTIC VALVE The aortic valve is normal in structure. No aortic regurgitation is present. There is no aortic valvular stenosis. There is no aortic valvular vegetation. MITRAL VALVE The mitral valve is normal in structure. There is no evidence of mitral valve prolapse. There is no mitral valve stenosis. There is mild mitral valve regurgitation noted. TRICUSPID VALVE The tricuspid valve is normal in structure. There is moderate tricuspid valve regurgitation noted. RVSP is calculated at 32 mm Hg. There is no tricuspid valve prolapse or vegetation. There is no tricuspid valve stenosis. PULMONIC VALVE The pulmonary valve is normal in structure. There is trace pulmonic valvular regurgitation. There is no pulmonic valvular stenosis. GREAT VESSELS The aortic root is normal in size. The ascending aorta is normal in size. The pulmonary artery is normal. The IVC is normal in size and collapses >50% with inspiration. PERICARDIAL EFFUSION There is no pericardial effusion. There is no pleural effusion. <Conclusion> The estimated ejection fraction is 55-60% Transmitral Doppler flow pattern is Grade I-abnormal relaxation pattern. The left atrium size is normal. There is mild mitral valve regurgitation noted. There is moderate tricuspid valve regurgitation noted. RVSP is calculated at 32 mm Hg.
--- NOTE | 2018-09-30 11:54 | US ---
Date of service: 09/30/2018 HISTORY: acalc priscilla COMPARISON: None. TECHNIQUE: Sonographic evaluation of the right upper quadrant of the abdomen. FINDINGS: LIVER: Measures 14.0 cm in length. Normal echogenicity of the liver parenchyma. No mass. No intrahepatic bile duct dilatation. GALLBLADDER: There are multiple small gallstones and diffuse gallbladder wall thickening. Mild pericholecystic fluid. The sonographic Sanchez's sign is negative. COMMON BILE DUCT: Measures 3.9 mm. No stones. No dilatation. PANCREAS: Unremarkable as visualized. No mass. No ductal dilatation. RIGHT KIDNEY: Measures 8.7 cm in length. Normal echogenicity. No calculus, mass, or hydronephrosis. AORTA: No aneurysmal dilatation. IVC: Unremarkable. OTHER FINDINGS: None . IMPRESSION: Findings may represent acute calculus cholecystitis in the appropriate clinical setting. A preliminary report was provided by [facility].
--- NOTE | 2018-09-30 12:13 | RAD ---
Date of service: 09/29/2018 HISTORY: Sepsis Patient COMPARISON: 01/14/2018. FINDINGS: LUNGS: The lungs are well inflated and clear. PLEURA: No pleural effusions or pneumothorax. CARDIOVASCULAR: The heart is normal in size. No aortic atherosclerotic calcifications present. OSSEOUS STRUCTURES: Within normal limits for the patient's age. VISUALIZED UPPER ABDOMEN: Normal. OTHER FINDINGS: None. IMPRESSION: No active pulmonary disease.
[2018-09-30 12:49] LABS: HEPATITIS B SURFACE AG Negative (NEGATIVE)
--- NOTE | 2018-09-30 14:06 | CP.PCM.HP ---
History of Present Illness - History of Present Illness History of Present Illness: 82 y/o lady with Hx of T2D, HTN presented to ER with vomiting , nausea, fever, RUQ pain lt flank pain. She was found in her house by the daughter francisco, with sing of vomiting on the side of her bed. In ER she presented with fever 103.5, confuse, persistent pain in the RUQ, elevation of the bilirubin and liver function test. A ct scan of the abdomen reveled sign of pyelonephritis with cholecystitis and cholelithiasis. Placed on IV antibx, NPO and IVF Present on Admission - Present on Admission Any Indicators Present on Admission: No Review of Systems - Constitutional Constitutional: Weakness - Cardiovascular Cardiovascular: As Per HPI - Respiratory Respiratory: As Per HPI - Gastrointestinal Gastrointestinal: Abdominal Pain, Dyspepsia, Nausea, Vomiting - Genitourinary Genitourinary: Flank Pain - Musculoskeletal Musculoskeletal: Muscle Weakness - Neurological Neurological: As Per HPI - Psychiatric Psychiatric: As Per HPI - Endocrine Endocrine: As Per HPI Past Patient History - Past Medical History & Family History Past Medical History?: Yes - Past Social History Alcohol: None Drugs: Denies Home Situation {Lives}: With Family - CARDIAC Hx Hypertension: Yes - PULMONARY Hx Respiratory Disorders: No - NEUROLOGICAL Hx Neurological Disorder: Yes - HEENT Hx HEENT Problems: No - RENAL Hx Chronic Kidney Disease: No - ENDOCRINE/METABOLIC Hx Diabetes Mellitus Type 2: Yes Hx Hypothyroidism: Yes - HEMATOLOGICAL/ONCOLOGICAL Hx Blood Disorders: No - INTEGUMENTARY Hx Dermatological Problems: No - MUSCULOSKELETAL/RHEUMATOLOGICAL Hx Arthritis: Yes - PSYCHIATRIC Hx Substance Use: No - SURGICAL HISTORY Hx Surgeries: Yes Hx Musculoskeletal Surgery: Yes (left ankle surgery 2013, left leg surgery in 1993) Hx Orthopedic Surgery: Yes (bilateral shoulder surgery) Other/Comment: left leg sx (tib-fib fx 1989) - ANESTHESIA Hx Anesthesia: Yes Hx Anesthesia Reactions: No Hx Malignant Hyperthermia: No Has any member of the family had a problem w/ anesthesia?: Yes Meds Allergies/Adverse Reactions: Allergies Allergy/AdvReac Type Severity Reaction Status Date / Time Sulfa (Sulfonamide Allergy RASH Verified 09/29/18 18:52 Antibiotics) Physical Exam - Constitutional Appears: Chronically Ill - Head Exam Head Exam: ATRAUMATIC, NORMAL INSPECTION, NORMOCEPHALIC - Eye Exam Eye Exam: Scleral icterus - ENT Exam ENT Exam: Normal Exam - Neck Exam Neck exam: Positive for: Full Rom - Respiratory Exam Respiratory Exam: Decreased Breath Sounds - Cardiovascular Exam Cardiovascular Exam: REGULAR RHYTHM, +S1, +S2 - GI/Abdominal Exam GI & Abdominal Exam: Rebound, Tenderness Additional comments: flank tenderness - Back Exam Back exam: tenderness - Neurological Exam Neurological exam: Alert - Psychiatric Exam Psychiatric exam: Flat Affect - Skin Skin Exam: Pallor Results - Vital Signs Recent Vital Signs: Last Vital Signs Temp 98.4 F 09/30/18 09:00 Pulse 80 09/30/18 09:00 Resp 20 09/30/18 09:00 BP 109/67 09/30/18 09:00 Pulse Ox 96 09/30/18 09:00 - Labs Result Diagrams: 09/30/18 07:05 09/30/18 07:05 Labs: Laboratory Results - last 24 hr 09/29/18 09/29/18 09/29/18 00:02 19:22 20:10 WBC 4.5 L RBC 4.31 Hgb 12.8 Hct 38.2 MCV 88.7 D MCH 29.8 MCHC 33.6 RDW 14.1 Plt Count 151 MPV 9.3 Neut % (Auto) 88.1 H Lymph % (Auto) 6.5 L Dixie % (Auto) 5.0 Eos % (Auto) 0.2 Baso % (Auto) 0.2 Neut # (Auto) 4.0 Lymph # (Auto) 0.3 L Dixie # (Auto) 0.2 Eos # (Auto) 0.0 Baso # (Auto) 0.0 Neutrophils % (Manual) 82 H Band Neutrophils % 3 H Lymphocytes % (Manual) 8 L Monocytes % (Manual) 6 Eosinophils % (Manual) 1 Toxic Granulation Present Platelet Estimate Normal Hypochromasia (manual) Slight Anisocytosis (manual) Slight PT INR APTT pO2 51 VBG pH 7.44 H VBG pCO2 40 VBG HCO3 26.8 VBG Total CO2 28.4 H VBG O2 Sat (Calc) 91.6 H VBG Base Excess 2.8 H VBG Potassium 3.6 Sodium 139.0 Chloride 108.0 H Glucose 119 H Lactate 2.8 H FiO2 21.0 Potassium Carbon Dioxide Anion Gap BUN Creatinine Est GFR ( Amer) Est GFR (Non-Af Amer) POC Glucose (mg/dL) 141 H Random Glucose Hemoglobin A1c Calcium Phosphorus Magnesium Total Bilirubin AST ALT Alkaline Phosphatase Total Protein Albumin Globulin Albumin/Globulin Ratio Triglycerides Cholesterol LDL Cholesterol Direct HDL Cholesterol Amylase Lipase Thyroxine (T4) Total T3 TSH 3rd Generation Venous Blood Potassium 3.6 Urine Color Urine Clarity Urine pH Ur Specific Winston Urine Protein Urine Glucose (UA) Urine Ketones Urine Blood Urine Nitrate Urine Bilirubin Urine Urobilinogen Ur Leukocyte Esterase Urine RBC (Auto) Urine Microscopic WBC Ur Squamous Epith Cells Urine Bacteria Hep Bs Antigen Blood Type Blood Type Confirm Antibody Screen BBK History Checked 09/29/18 09/29/18 09/29/18 20:10 20:10 20:12 WBC RBC Hgb Hct MCV MCH MCHC RDW Plt Count MPV Neut % (Auto) Lymph % (Auto) Dixie % (Auto) Eos % (Auto) Baso % (Auto) Neut # (Auto) Lymph # (Auto) Dixie # (Auto) Eos # (Auto) Baso # (Auto) Neutrophils % (Manual) Band Neutrophils % Lymphocytes % (Manual) Monocytes % (Manual) Eosinophils % (Manual) Toxic Granulation Platelet Estimate Hypochromasia (manual) Anisocytosis (manual) PT 14.3 H INR 1.3 APTT 32.1 pO2 31 VBG pH 7.43 VBG pCO2 47 VBG HCO3 28.5 VBG Total CO2 32.6 H VBG O2 Sat (Calc) 65.8 H VBG Base Excess 5.8 H VBG Potassium 4.8 Sodium 140 138.0 Chloride 101 106.0 Glucose 137 H Lactate 2.7 H FiO2 21.0 Potassium 4.1 Carbon Dioxide 30 Anion Gap 13 BUN 24 H Creatinine 0.9 Est GFR ( Amer) > 60 Est GFR (Non-Af Amer) > 60 POC Glucose (mg/dL) Random Glucose 130 H Hemoglobin A1c Calcium 9.4 Phosphorus 3.0 Magnesium 1.8 Total Bilirubin 2.1 H AST 1450 H ALT 724 H D Alkaline Phosphatase 204 H Total Protein 7.6 Albumin 3.8 Globulin 3.8 Albumin/Globulin Ratio 1.0 Triglycerides Cholesterol LDL Cholesterol Direct HDL Cholesterol Amylase Lipase Thyroxine (T4) Total T3 TSH 3rd Generation Venous Blood Potassium 4.8 Urine Color Urine Clarity Urine pH Ur Specific Winston Urine Protein Urine Glucose (UA) Urine Ketones Urine Blood Urine Nitrate Urine Bilirubin Urine Urobilinogen Ur Leukocyte Esterase Urine RBC (Auto) Urine Microscopic WBC Ur Squamous Epith Cells Urine Bacteria Hep Bs Antigen Blood Type Blood Type Confirm Antibody Screen BBK History Checked 09/29/18 09/30/18 09/30/18 22:11 01:22 05:56 WBC RBC Hgb Hct MCV MCH MCHC RDW Plt Count MPV Neut % (Auto) Lymph % (Auto) Dixie % (Auto) Eos % (Auto) Baso % (Auto) Neut # (Auto) Lymph # (Auto) Dixie # (Auto) Eos # (Auto) Baso # (Auto) Neutrophils % (Manual) Band Neutrophils % Lymphocytes % (Manual) Monocytes % (Manual) Eosinophils % (Manual) Toxic Granulation Platelet Estimate Hypochromasia (manual) Anisocytosis (manual) PT INR APTT pO2 VBG pH VBG pCO2 VBG HCO3 VBG Total CO2 VBG O2 Sat (Calc) VBG Base Excess VBG Potassium Sodium Chloride Glucose Lactate FiO2 Potassium Carbon Dioxide Anion Gap BUN Creatinine Est GFR ( Amer) Est GFR (Non-Af Amer) POC Glucose (mg/dL) 121 H 134 H Random Glucose Hemoglobin A1c Calcium Phosphorus Magnesium Total Bilirubin AST ALT Alkaline Phosphatase Total Protein Albumin Globulin Albumin/Globulin Ratio Triglycerides Cholesterol LDL Cholesterol Direct HDL Cholesterol Amylase Lipase Thyroxine (T4) Total T3 TSH 3rd Generation Venous Blood Potassium Urine Color Bonita Urine Clarity Slighty-cloudy Urine pH 7.0 Ur Specific Winston 1.018 Urine Protein 30 Urine Glucose (UA) Neg Urine Ketones Negative Urine Blood Negative Urine Nitrate Negative Urine Bilirubin Negative Urine Urobilinogen 4.0 H Ur Leukocyte Esterase Trace Urine RBC (Auto) 2 Urine Microscopic WBC 6 H Ur Squamous Epith Cells 1 Urine Bacteria Rare Hep Bs Antigen Blood Type Blood Type Confirm Antibody Screen BBK History Checked 09/30/18 09/30/18 09/30/18 07:05 07:05 07:05 WBC 10.7 D RBC 3.37 L Hgb 10.2 L D Hct 30.1 L MCV 89.3 MCH 30.2 MCHC 33.8 RDW 14.0 Plt Count 112 L D MPV 8.2 Neut % (Auto) 87.3 H Lymph % (Auto) 6.7 L Dixie % (Auto) 5.8 Eos % (Auto) 0.1 Baso % (Auto) 0.1 Neut # (Auto) 9.3 H Lymph # (Auto) 0.7 L Dixie # (Auto) 0.6 Eos # (Auto) 0.0 Baso # (Auto) 0.0 Neutrophils % (Manual) Band Neutrophils % Lymphocytes % (Manual) Monocytes % (Manual) Eosinophils % (Manual) Toxic Granulation Platelet Estimate Hypochromasia (manual) Anisocytosis (manual) PT 17.5 H INR 1.5 APTT 37.1 pO2 VBG pH VBG pCO2 VBG HCO3 VBG Total CO2 VBG O2 Sat (Calc) VBG Base Excess VBG Potassium Sodium 142 Chloride 107 Glucose Lactate FiO2 Potassium 4.0 Carbon Dioxide 26 Anion Gap 13 BUN 26 H Creatinine 1.3 H Est GFR ( Amer) 48 Est GFR (Non-Af Amer) 39 POC Glucose (mg/dL) Random Glucose 125 H Hemoglobin A1c Calcium 7.8 L Phosphorus 6.0 H Magnesium 1.7 Total Bilirubin 3.0 H AST 683 H D ALT 497 H D Alkaline Phosphatase 115 Total Protein 5.9 L Albumin 2.9 L D Globulin 3.1 Albumin/Globulin Ratio 0.9 L Triglycerides 82 D Cholesterol 57 LDL Cholesterol Direct < 30 HDL Cholesterol 31 Amylase 50 Lipase 40 Thyroxine (T4) 7.71 Total T3 0.493 L TSH 3rd Generation 0.24 L Venous Blood Potassium Urine Color Urine Clarity Urine pH Ur Specific [place] Urine Protein Urine Glucose (UA) Urine Ketones Urine Blood Urine Nitrate Urine Bilirubin Urine Urobilinogen Ur Leukocyte Esterase Urine RBC (Auto) Urine Microscopic WBC Ur Squamous Epith Cells Urine Bacteria Hep Bs Antigen Negative Blood Type Blood Type Confirm Antibody Screen BBK History Checked 09/30/18 09/30/18 09/30/18 07:05 08:02 09:00 WBC RBC Hgb Hct MCV MCH MCHC RDW Plt Count MPV Neut % (Auto) Lymph % (Auto) Dixie % (Auto) Eos % (Auto) Baso % (Auto) Neut # (Auto) Lymph # (Auto) Dixie # (Auto) Eos # (Auto) Baso # (Auto) Neutrophils % (Manual) Band Neutrophils % Lymphocytes % (Manual) Monocytes % (Manual) Eosinophils % (Manual) Toxic Granulation Platelet Estimate Hypochromasia (manual) Anisocytosis (manual) PT INR APTT pO2 VBG pH VBG pCO2 VBG HCO3 VBG Total CO2 VBG O2 Sat (Calc) VBG Base Excess VBG Potassium Sodium Chloride Glucose Lactate FiO2 Potassium Carbon Dioxide Anion Gap BUN Creatinine Est GFR ( Amer) Est GFR (Non-Af Amer) POC Glucose (mg/dL) Random Glucose Hemoglobin A1c 8.2 H Calcium Phosphorus Magnesium Total Bilirubin AST ALT Alkaline Phosphatase Total Protein Albumin Globulin Albumin/Globulin Ratio Triglycerides Cholesterol LDL Cholesterol Direct HDL Cholesterol Amylase Lipase Thyroxine (T4) Total T3 TSH 3rd Generation Venous Blood Potassium Urine Color Urine Clarity Urine pH Ur Specific [place] Urine Protein Urine Glucose (UA) Urine Ketones Urine Blood Urine Nitrate Urine Bilirubin Urine Urobilinogen Ur Leukocyte Esterase Urine RBC (Auto) Urine Microscopic WBC Ur Squamous Epith Cells Urine Bacteria Hep Bs Antigen Blood Type B POSITIVE Blood Type Confirm B POSITIVE Antibody Screen Negative BBK History Checked No verified bt 09/30/18 10:40 WBC RBC Hgb Hct MCV MCH MCHC RDW Plt Count MPV Neut % (Auto) Lymph % (Auto) Dixie % (Auto) Eos % (Auto) Baso % (Auto) Neut # (Auto) Lymph # (Auto) Dixie # (Auto) Eos # (Auto) Baso # (Auto) Neutrophils % (Manual) Band Neutrophils % Lymphocytes % (Manual) Monocytes % (Manual) Eosinophils % (Manual) Toxic Granulation Platelet Estimate Hypochromasia (manual) Anisocytosis (manual) PT INR APTT pO2 VBG pH VBG pCO2 VBG HCO3 VBG Total CO2 VBG O2 Sat (Calc) VBG Base Excess VBG Potassium Sodium Chloride Glucose Lactate FiO2 Potassium Carbon Dioxide Anion Gap BUN Creatinine Est GFR ( Amer) Est GFR (Non-Af Amer) POC Glucose (mg/dL) 115 H Random Glucose Hemoglobin A1c Calcium Phosphorus Magnesium Total Bilirubin AST ALT Alkaline Phosphatase Total Protein Albumin Globulin Albumin/Globulin Ratio Triglycerides Cholesterol LDL Cholesterol Direct HDL Cholesterol Amylase Lipase Thyroxine (T4) Total T3 TSH 3rd Generation Venous Blood Potassium Urine Color Urine Clarity Urine pH Ur Specific [place] Urine Protein Urine Glucose (UA) Urine Ketones Urine Blood Urine Nitrate Urine Bilirubin Urine Urobilinogen Ur Leukocyte Esterase Urine RBC (Auto) Urine Microscopic WBC Ur Squamous Epith Cells Urine Bacteria Hep Bs Antigen Blood Type Blood Type Confirm Antibody Screen BBK History Checked Assessment & Plan (1) Cholelithiasis Status: Acute (2) Cholangitis Status: Suspected (3) Cholecystitis Status: Acute (4) Diabetes type 2, uncontrolled Status: Chronic (5) Elevated liver enzymes Status: Acute (6) Near syncope Status: Acute (7) Hypertension Status: Chronic (8) Hypothyroidism Status: Chronic (9) Pyelonephritis Status: Acute - Assessment and Plan (Free Text) Plan: As per orders
[2018-09-30 14:37] LABS: ALB/GLOB RATIO 0.9 (1.0-2.1)
[2018-09-30 14:39] LABS: ALBUMIN 2.9 g/dL (3.5-5.0); BILIRUBIN,DIRECT 2.8 mg/ml (0.0-0.4); CALCIUM 8.6 mg/dL (8.4-10.2)
--- NOTE | 2018-09-30 16:19 | MRI ---
Date of service: 09/30/2018 PROCEDURE: Magnetic Resonance Cholangiopancreatography HISTORY: COMPARISON: None available. TECHNIQUE: Multiplanar, multisequence MR images of the abdomen were obtained, including heavily T2 weighted MRCP images of the biliary system. Rotating maximum intensity projection images of the biliary system were generated. FINDINGS: MRCP: The common bile duct is of a normal caliber. No evidence of choledocholithiasis. No intrahepatic biliary ductal dilatation. LIVER: Unremarkable. GALLBLADDER: Partially contracted. Thickened wall. Cholelithiasis. No pericholecystic fluid. SPLEEN: Unremarkable. PANCREAS: No mass. No abnormal enhancement. No ductal dilatation. 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 ADRENALS: Unremarkable. KIDNEYS: Trace right perinephric fluid, nonspecific. This could be the result of recent urinary tract obstruction with forniceal rupture. This can also be seen with pyelonephritis. There is no evidence of hydronephrosis on this examination. AORTA: No aneurysm. ASCITES: None. OTHER FINDINGS: None. IMPRESSION: No evidence of biliary obstruction. Cholelithiasis. Thickened gallbladder wall. Partially contracted gallbladder. No evidence of choledocholithiasis. 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 Trace right perinephric fluid common nonspecific. See above.
[2018-09-30] MEDS: Sodium Chloride 0.9% 1,000 ML IV SCH ×2 (16:28→23:55)
--- NOTE | 2018-09-30 16:48 | CP.PCM.CON ---
<Wilfrido Perez - Last Filed: 09/30/18 16:45> History of Present Illness - History of Present Illness History of Present Illness: General Surgery Consult Note for Dr. Torres Reason for consult: cholelithiasis, acute cholecystitis, suspected choledolcholithiasis 82F who presents with abdominal pain, nausea and vomiting. Patient seen and evaluated on the med/surg floor. Patients state this symptoms started yesterday. Pain was in the right abdomen and also epigastric region. She states last time she ate was yesterday and she was able to tolerate that. She reports that she has had pain like this in the past. Denies any changes in bowel function. Patient admits to fevers. Denies chills, cp, SOB, constipation, diarrhea, incontinence. PMH: DM, HTN, HLD, thyroid disease PSH: Left tib/fib ORIF All: Sulfa Review of Systems - Review of Systems All systems: reviewed and no additional remarkable complaints except (as per H PI) Past Patient History - Past Medical History & Family History Past Medical History?: Yes - Past Social History Alcohol: None Drugs: Denies Home Situation {Lives}: With Family - CARDIAC Hx Hypertension: Yes - PULMONARY Hx Respiratory Disorders: No - NEUROLOGICAL Hx Neurological Disorder: Yes - HEENT Hx HEENT Problems: No - RENAL Hx Chronic Kidney Disease: No - ENDOCRINE/METABOLIC Hx Diabetes Mellitus Type 2: Yes Hx Hypothyroidism: Yes - HEMATOLOGICAL/ONCOLOGICAL Hx Blood Disorders: No - INTEGUMENTARY Hx Dermatological Problems: No - MUSCULOSKELETAL/RHEUMATOLOGICAL Hx Arthritis: Yes - PSYCHIATRIC Hx Substance Use: No - SURGICAL HISTORY Hx Surgeries: Yes Hx Musculoskeletal Surgery: Yes (left ankle surgery 2013, left leg surgery in 1993) Hx Orthopedic Surgery: Yes (bilateral shoulder surgery) Other/Comment: left leg sx (tib-fib fx 1989) - ANESTHESIA Hx Anesthesia: Yes Hx Anesthesia Reactions: No Hx Malignant Hyperthermia: No Has any member of the family had a problem w/ anesthesia?: Yes Meds Allergies/Adverse Reactions: Allergies Allergy/AdvReac Type Severity Reaction Status Date / Time Sulfa (Sulfonamide Allergy RASH Verified 09/29/18 18:52 Antibiotics) - Medications Medications: Current Medications Dextrose (Dextrose 50% Inj) 0 ml IV STAT PRN; Protocol PRN Reason: Hypoglycemia Protocol Dextrose (Glutose 15) 0 gm PO ONCE PRN; Protocol PRN Reason: Hypoglycemia Protocol Gabapentin (Neurontin) 300 mg PO Q8 [facility] Last Admin: 09/30/18 10:17 Dose: Not Given Glucagon (Glucagen Diagnostic Kit) 0 mg IM STAT PRN; Protocol PRN Reason: Hypoglycemia Protocol Heparin Sodium (Porcine) (Heparin) 5,000 units SC Q8 [facility]; Protocol Last Admin: 09/30/18 16:30 Dose: 5,000 units Piperacillin Sod/Tazobactam (Sod 3.375 gm/ Sodium Chloride) 100 mls @ 100 mls/hr IVPB Q6 [facility]; Protocol Last Admin: 09/30/18 16:29 Dose: 100 mls/hr Sodium Chloride (Sodium Chloride 0.9%) 1,000 mls @ 100 mls/hr IV .Q10H [facility] Stop: 10/01/18 13:42 Last Admin: 09/30/18 16:28 Dose: 100 mls/hr Insulin Human Regular (Humulin R) 0 units SC ACHS [facility]; Protocol Last Admin: 09/30/18 16:29 Dose: Not Given Insulin Lispro Protam/Lispro Human (Humalog Mix 75/25) 20 units SC ACB [facility] Last Admin: 09/30/18 09:52 Dose: Not Given Levothyroxine Sodium (Synthroid) 88 mcg PO DAILY@0630 [facility] Morphine Sulfate (Morphine) 1 mg IVP Q4 PRN PRN Reason: Pain, moderate (4-7) Ondansetron HCl (Zofran Inj) 4 mg IVP Q4 PRN PRN Reason: Nausea/Vomiting Pantoprazole Sodium (Protonix Inj) 40 mg IVP DAILY [facility] Last Admin: 09/30/18 10:16 Dose: 40 mg Physical Exam - Additional Findings Additional findings: - Constitutional Appears: Non-toxic, No Acute Distress - Eye Exam Eye Exam: EOMI, PERRL - ENT Exam ENT Exam: Mucous Membranes Moist - Respiratory Exam Respiratory Exam: Clear to Auscultation Bilateral, NORMAL BREATHING PATTERN - Cardiovascular Exam Cardiovascular Exam: REGULAR RHYTHM, +S1, +S2 - GI/Abdominal Exam GI & Abdominal Exam: Soft, Tenderness (RUQ). absent: Distended, Firm, Rebound, Rigid Additional comments: +Sanchez's sign - Extremities Exam Extremities exam: Negative for: pedal edema, tenderness - Neurological Exam Neurological exam: Alert, Oriented x3 - Skin Skin Exam: Dry, Intact, Normal Color, Warm Results - Vital Signs Recent Vital Signs: Last Vital Signs Temp 98.4 F 09/30/18 09:00 Pulse 80 09/30/18 09:00 Resp 20 09/30/18 09:00 BP 109/67 09/30/18 09:00 Pulse Ox 96 09/30/18 09:00 - Labs Result Diagrams: 09/30/18 07:05 09/30/18 13:30 Labs: Laboratory Results - last 24 hr 09/29/18 09/29/18 09/29/18 00:02 19:22 20:10 WBC 4.5 L RBC 4.31 Hgb 12.8 Hct 38.2 MCV 88.7 D MCH 29.8 MCHC 33.6 RDW 14.1 Plt Count 151 MPV 9.3 Neut % (Auto) 88.1 H Lymph % (Auto) 6.5 L [place] % (Auto) 5.0 Eos % (Auto) 0.2 Baso % (Auto) 0.2 Neut # (Auto) 4.0 Lymph # (Auto) 0.3 L [place] # (Auto) 0.2 Eos # (Auto) 0.0 Baso # (Auto) 0.0 Neutrophils % (Manual) 82 H Band Neutrophils % 3 H Lymphocytes % (Manual) 8 L Monocytes % (Manual) 6 Eosinophils % (Manual) 1 Toxic Granulation Present Platelet Estimate Normal Hypochromasia (manual) Slight Anisocytosis (manual) Slight PT INR APTT pO2 51 VBG pH 7.44 H VBG pCO2 40 VBG HCO3 26.8 VBG Total CO2 28.4 H VBG O2 Sat (Calc) 91.6 H VBG Base Excess 2.8 H VBG Potassium 3.6 Sodium 139.0 Chloride 108.0 H Glucose 119 H Lactate 2.8 H FiO2 21.0 Potassium Carbon Dioxide Anion Gap BUN Creatinine Est GFR ( Amer) Est GFR (Non-Af Amer) POC Glucose (mg/dL) 141 H Random Glucose Hemoglobin A1c Calcium Phosphorus Magnesium Total Bilirubin Direct Bilirubin AST ALT Alkaline Phosphatase Total Protein Albumin Globulin Albumin/Globulin Ratio Triglycerides Cholesterol LDL Cholesterol Direct HDL Cholesterol Amylase Lipase Alpha Fetoprotein Thyroxine (T4) Total T3 TSH 3rd Generation Venous Blood Potassium 3.6 Urine Color Urine Clarity Urine pH Ur Specific [place] Urine Protein Urine Glucose (UA) Urine Ketones Urine Blood Urine Nitrate Urine Bilirubin Urine Urobilinogen Ur Leukocyte Esterase Urine RBC (Auto) Urine Microscopic WBC Ur Squamous Epith Cells Urine Bacteria Hep Bs Antigen Blood Type Blood Type Confirm Antibody Screen BBK History Checked 09/29/18 09/29/18 09/29/18 20:10 20:10 20:12 WBC RBC Hgb Hct MCV MCH MCHC RDW Plt Count MPV Neut % (Auto) Lymph % (Auto) [place] % (Auto) Eos % (Auto) Baso % (Auto) Neut # (Auto) Lymph # (Auto) [place] # (Auto) Eos # (Auto) Baso # (Auto) Neutrophils % (Manual) Band Neutrophils % Lymphocytes % (Manual) Monocytes % (Manual) Eosinophils % (Manual) Toxic Granulation Platelet Estimate Hypochromasia (manual) Anisocytosis (manual) PT 14.3 H INR 1.3 APTT 32.1 pO2 31 VBG pH 7.43 VBG pCO2 47 VBG HCO3 28.5 VBG Total CO2 32.6 H VBG O2 Sat (Calc) 65.8 H VBG Base Excess 5.8 H VBG Potassium 4.8 Sodium 140 138.0 Chloride 101 106.0 Glucose 137 H Lactate 2.7 H FiO2 21.0 Potassium 4.1 Carbon Dioxide 30 Anion Gap 13 BUN 24 H Creatinine 0.9 Est GFR ( Amer) > 60 Est GFR (Non-Af Amer) > 60 POC Glucose (mg/dL) Random Glucose 130 H Hemoglobin A1c Calcium 9.4 Phosphorus 3.0 Magnesium 1.8 Total Bilirubin 2.1 H Direct Bilirubin AST 1450 H ALT 724 H D Alkaline Phosphatase 204 H Total Protein 7.6 Albumin 3.8 Globulin 3.8 Albumin/Globulin Ratio 1.0 Triglycerides Cholesterol LDL Cholesterol Direct HDL Cholesterol Amylase Lipase Alpha Fetoprotein Thyroxine (T4) Total T3 TSH 3rd Generation Venous Blood Potassium 4.8 Urine Color Urine Clarity Urine pH Ur Specific [place] Urine Protein Urine Glucose (UA) Urine Ketones Urine Blood Urine Nitrate Urine Bilirubin Urine Urobilinogen Ur Leukocyte Esterase Urine RBC (Auto) Urine Microscopic WBC Ur Squamous Epith Cells Urine Bacteria Hep Bs Antigen Blood Type Blood Type Confirm Antibody Screen BBK History Checked 09/29/18 09/30/18 09/30/18 22:11 01:22 05:56 WBC RBC Hgb Hct MCV MCH MCHC RDW Plt Count MPV Neut % (Auto) Lymph % (Auto) [place] % (Auto) Eos % (Auto) Baso % (Auto) Neut # (Auto) Lymph # (Auto) [place] # (Auto) Eos # (Auto) Baso # (Auto) Neutrophils % (Manual) Band Neutrophils % Lymphocytes % (Manual) Monocytes % (Manual) Eosinophils % (Manual) Toxic Granulation Platelet Estimate Hypochromasia (manual) Anisocytosis (manual) PT INR APTT pO2 VBG pH VBG pCO2 VBG HCO3 VBG Total CO2 VBG O2 Sat (Calc) VBG Base Excess VBG Potassium Sodium Chloride Glucose Lactate FiO2 Potassium Carbon Dioxide Anion Gap BUN Creatinine Est GFR ( Amer) Est GFR (Non-Af Amer) POC Glucose (mg/dL) 121 H 134 H Random Glucose Hemoglobin A1c Calcium Phosphorus Magnesium Total Bilirubin Direct Bilirubin AST ALT Alkaline Phosphatase Total Protein Albumin Globulin Albumin/Globulin Ratio Triglycerides Cholesterol LDL Cholesterol Direct HDL Cholesterol Amylase Lipase Alpha Fetoprotein Thyroxine (T4) Total T3 TSH 3rd Generation Venous Blood Potassium Urine Color [place] Urine Clarity Slighty-cloudy Urine pH 7.0 Ur Specific [place] 1.018 Urine Protein 30 Urine Glucose (UA) Neg Urine Ketones Negative Urine Blood Negative Urine Nitrate Negative Urine Bilirubin Negative Urine Urobilinogen 4.0 H Ur Leukocyte Esterase Trace Urine RBC (Auto) 2 Urine Microscopic WBC 6 H Ur Squamous Epith Cells 1 Urine Bacteria Rare Hep Bs Antigen Blood Type Blood Type Confirm Antibody Screen BBK History Checked 09/30/18 09/30/18 09/30/18 07:05 07:05 07:05 WBC 10.7 D RBC 3.37 L Hgb 10.2 L D Hct 30.1 L MCV 89.3 MCH 30.2 MCHC 33.8 RDW 14.0 Plt Count 112 L D MPV 8.2 Neut % (Auto) 87.3 H Lymph % (Auto) 6.7 L [place] % (Auto) 5.8 Eos % (Auto) 0.1 Baso % (Auto) 0.1 Neut # (Auto) 9.3 H Lymph # (Auto) 0.7 L [place] # (Auto) 0.6 Eos # (Auto) 0.0 Baso # (Auto) 0.0 Neutrophils % (Manual) Band Neutrophils % Lymphocytes % (Manual) Monocytes % (Manual) Eosinophils % (Manual) Toxic Granulation Platelet Estimate Hypochromasia (manual) Anisocytosis (manual) PT 17.5 H INR 1.5 APTT 37.1 pO2 VBG pH VBG pCO2 VBG HCO3 VBG Total CO2 VBG O2 Sat (Calc) VBG Base Excess VBG Potassium Sodium 142 Chloride 107 Glucose Lactate FiO2 Potassium 4.0 Carbon Dioxide 26 Anion Gap 13 BUN 26 H Creatinine 1.3 H Est GFR ( Amer) 48 Est GFR (Non-Af Amer) 39 POC Glucose (mg/dL) Random Glucose 125 H Hemoglobin A1c Calcium 7.8 L Phosphorus 6.0 H Magnesium 1.7 Total Bilirubin 3.0 H Direct Bilirubin AST 683 H D ALT 497 H D Alkaline Phosphatase 115 Total Protein 5.9 L Albumin 2.9 L D Globulin 3.1 Albumin/Globulin Ratio 0.9 L Triglycerides 82 D Cholesterol 57 LDL Cholesterol Direct < 30 HDL Cholesterol 31 Amylase 50 Lipase 40 Alpha Fetoprotein Thyroxine (T4) 7.71 Total T3 0.493 L TSH 3rd Generation 0.24 L Venous Blood Potassium Urine Color Urine Clarity Urine pH Ur Specific [place] Urine Protein Urine Glucose (UA) Urine Ketones Urine Blood Urine Nitrate Urine Bilirubin Urine Urobilinogen Ur Leukocyte Esterase Urine RBC (Auto) Urine Microscopic WBC Ur Squamous Epith Cells Urine Bacteria Hep Bs Antigen Negative Blood Type Blood Type Confirm Antibody Screen BBK History Checked 09/30/18 09/30/18 09/30/18 07:05 08:02 09:00 WBC RBC Hgb Hct MCV MCH MCHC RDW Plt Count MPV Neut % (Auto) Lymph % (Auto) [place] % (Auto) Eos % (Auto) Baso % (Auto) Neut # (Auto) Lymph # (Auto) [place] # (Auto) Eos # (Auto) Baso # (Auto) Neutrophils % (Manual) Band Neutrophils % Lymphocytes % (Manual) Monocytes % (Manual) Eosinophils % (Manual) Toxic Granulation Platelet Estimate Hypochromasia (manual) Anisocytosis (manual) PT INR APTT pO2 VBG pH VBG pCO2 VBG HCO3 VBG Total CO2 VBG O2 Sat (Calc) VBG Base Excess VBG Potassium Sodium Chloride Glucose Lactate FiO2 Potassium Carbon Dioxide Anion Gap BUN Creatinine Est GFR ( Amer) Est GFR (Non-Af Amer) POC Glucose (mg/dL) Random Glucose Hemoglobin A1c 8.2 H Calcium Phosphorus Magnesium Total Bilirubin Direct Bilirubin AST ALT Alkaline Phosphatase Total Protein Albumin Globulin Albumin/Globulin Ratio Triglycerides Cholesterol LDL Cholesterol Direct HDL Cholesterol Amylase Lipase Alpha Fetoprotein Thyroxine (T4) Total T3 TSH 3rd Generation Venous Blood Potassium Urine Color Urine Clarity Urine pH Ur Specific [place] Urine Protein Urine Glucose (UA) Urine Ketones Urine Blood Urine Nitrate Urine Bilirubin Urine Urobilinogen Ur Leukocyte Esterase Urine RBC (Auto) Urine Microscopic WBC Ur Squamous Epith Cells Urine Bacteria Hep Bs Antigen Blood Type B POSITIVE Blood Type Confirm B POSITIVE Antibody Screen Negative BBK History Checked No verified bt 09/30/18 09/30/18 09/30/18 10:40 13:00 13:30 WBC RBC Hgb Hct MCV MCH MCHC RDW Plt Count MPV Neut % (Auto) Lymph % (Auto) [place] % (Auto) Eos % (Auto) Baso % (Auto) Neut # (Auto) Lymph # (Auto) [place] # (Auto) Eos # (Auto) Baso # (Auto) Neutrophils % (Manual) Band Neutrophils % Lymphocytes % (Manual) Monocytes % (Manual) Eosinophils % (Manual) Toxic Granulation Platelet Estimate Hypochromasia (manual) Anisocytosis (manual) PT INR APTT pO2 VBG pH VBG pCO2 VBG HCO3 VBG Total CO2 VBG O2 Sat (Calc) VBG Base Excess VBG Potassium Sodium 141 Chloride 106 Glucose Lactate FiO2 Potassium 3.7 Carbon Dioxide 26 Anion Gap 13 BUN 24 H Creatinine 1.1 Est GFR ( Amer) 58 Est GFR (Non-Af Amer) 48 POC Glucose (mg/dL) 115 H Random Glucose 106 H Hemoglobin A1c Calcium 8.6 Phosphorus Magnesium 1.9 Total Bilirubin 3.5 H Direct Bilirubin 2.8 H AST 558 H ALT 447 H Alkaline Phosphatase 112 Total Protein 6.1 L Albumin 2.9 L Globulin 3.1 Albumin/Globulin Ratio 0.9 L Triglycerides Cholesterol LDL Cholesterol Direct HDL Cholesterol Amylase Lipase Alpha Fetoprotein 1.8 Thyroxine (T4) Total T3 TSH 3rd Generation Venous Blood Potassium Urine Color Urine Clarity Urine pH Ur Specific [place] Urine Protein Urine Glucose (UA) Urine Ketones Urine Blood Urine Nitrate Urine Bilirubin Urine Urobilinogen Ur Leukocyte Esterase Urine RBC (Auto) Urine Microscopic WBC Ur Squamous Epith Cells Urine Bacteria Hep Bs Antigen Blood Type Blood Type Confirm Antibody Screen BBK History Checked 09/30/18 16:13 WBC RBC Hgb Hct MCV MCH MCHC RDW Plt Count MPV Neut % (Auto) Lymph % (Auto) [place] % (Auto) Eos % (Auto) Baso % (Auto) Neut # (Auto) Lymph # (Auto) [place] # (Auto) Eos # (Auto) Baso # (Auto) Neutrophils % (Manual) Band Neutrophils % Lymphocytes % (Manual) Monocytes % (Manual) Eosinophils % (Manual) Toxic Granulation Platelet Estimate Hypochromasia (manual) Anisocytosis (manual) PT INR APTT pO2 VBG pH VBG pCO2 VBG HCO3 VBG Total CO2 VBG O2 Sat (Calc) VBG Base Excess VBG Potassium Sodium Chloride Glucose Lactate FiO2 Potassium Carbon Dioxide Anion Gap BUN Creatinine Est GFR ( Amer) Est GFR (Non-Af Amer) POC Glucose (mg/dL) 120 H Random Glucose Hemoglobin A1c Calcium Phosphorus Magnesium Total Bilirubin Direct Bilirubin AST ALT Alkaline Phosphatase Total Protein Albumin Globulin Albumin/Globulin Ratio Triglycerides Cholesterol LDL Cholesterol Direct HDL Cholesterol Amylase Lipase Alpha Fetoprotein Thyroxine (T4) Total T3 TSH 3rd Generation Venous Blood Potassium Urine Color Urine Clarity Urine pH Ur Specific [place] Urine Protein Urine Glucose (UA) Urine Ketones Urine Blood Urine Nitrate Urine Bilirubin Urine Urobilinogen Ur Leukocyte Esterase Urine RBC (Auto) Urine Microscopic WBC Ur Squamous Epith Cells Urine Bacteria Hep Bs Antigen Blood Type Blood Type Confirm Antibody Screen BBK History Checked Assessment & Plan - Assessment and Plan (Free Text) Assessment: 82F with cholecystitis, possible choledocholithiasis Plan: NPO IVF Pain control IV Antibiotics f/u MRCP report Further recs discuss with Dr. Brian Perez PGY2 - Date & Time Date: 09/30/18 Time: 16:49 <Kain Torres - Last Filed: 09/30/18 17:16> History of Present Illness - History of Present Illness History of Present Illness: Patient was seen and examined at the bedside. Agree with resident's note above. MRCP results noted. Meds - Medications Medications: Current Medications Dextrose (Dextrose 50% Inj) 0 ml IV STAT PRN; Protocol PRN Reason: Hypoglycemia Protocol Dextrose (Glutose 15) 0 gm PO ONCE PRN; Protocol PRN Reason: Hypoglycemia Protocol Gabapentin (Neurontin) 300 mg PO Q8 [facility] Last Admin: 09/30/18 10:17 Dose: Not Given Glucagon (Glucagen Diagnostic Kit) 0 mg IM STAT PRN; Protocol PRN Reason: Hypoglycemia Protocol Heparin Sodium (Porcine) (Heparin) 5,000 units SC Q8 [facility]; Protocol Last Admin: 09/30/18 16:30 Dose: 5,000 units Piperacillin Sod/Tazobactam (Sod 3.375 gm/ Sodium Chloride) 100 mls @ 100 mls/hr IVPB Q6 [facility]; Protocol Last Admin: 09/30/18 16:29 Dose: 100 mls/hr Sodium Chloride (Sodium Chloride 0.9%) 1,000 mls @ 100 mls/hr IV .Q10H [facility] Stop: 10/01/18 13:42 Last Admin: 09/30/18 16:28 Dose: 100 mls/hr Insulin Human Regular (Humulin R) 0 units SC ACHS [facility]; Protocol Last Admin: 09/30/18 16:29 Dose: Not Given Insulin Lispro Protam/Lispro Human (Humalog Mix 75/25) 20 units SC ACB [facility] Last Admin: 09/30/18 09:52 Dose: Not Given Levothyroxine Sodium (Synthroid) 88 mcg PO DAILY@0630 [facility] Morphine Sulfate (Morphine) 1 mg IVP Q4 PRN PRN Reason: Pain, moderate (4-7) Ondansetron HCl (Zofran Inj) 4 mg IVP Q4 PRN PRN Reason: Nausea/Vomiting Pantoprazole Sodium (Protonix Inj) 40 mg IVP DAILY [facility] Last Admin: 09/30/18 10:16 Dose: 40 mg Physical Exam - GI/Abdominal Exam Additional comments: soft, RUQ tenderness, ND, BS+, no rebound, no guarding Results - Vital Signs Recent Vital Signs: Last Vital Signs Temp 98.4 F 09/30/18 09:00 Pulse 80 09/30/18 09:00 Resp 20 09/30/18 09:00 BP 109/67 09/30/18 09:00 Pulse Ox 96 09/30/18 09:00 - Labs Result Diagrams: 09/30/18 07:05 09/30/18 13:30 Labs: Laboratory Results - last 24 hr 09/29/18 09/29/18 09/29/18 00:02 19:22 20:10 WBC 4.5 L RBC 4.31 Hgb 12.8 Hct 38.2 MCV 88.7 D MCH 29.8 MCHC 33.6 RDW 14.1 Plt Count 151 MPV 9.3 Neut % (Auto) 88.1 H Lymph % (Auto) 6.5 L [place] % (Auto) 5.0 Eos % (Auto) 0.2 Baso % (Auto) 0.2 Neut # (Auto) 4.0 Lymph # (Auto) 0.3 L [place] # (Auto) 0.2 Eos # (Auto) 0.0 Baso # (Auto) 0.0 Neutrophils % (Manual) 82 H Band Neutrophils % 3 H Lymphocytes % (Manual) 8 L Monocytes % (Manual) 6 Eosinophils % (Manual) 1 Toxic Granulation Present Platelet Estimate Normal Hypochromasia (manual) Slight Anisocytosis (manual) Slight PT INR APTT pO2 51 VBG pH 7.44 H VBG pCO2 40 VBG HCO3 26.8 VBG Total CO2 28.4 H VBG O2 Sat (Calc) 91.6 H VBG Base Excess 2.8 H VBG Potassium 3.6 Sodium 139.0 Chloride 108.0 H Glucose 119 H Lactate 2.8 H FiO2 21.0 Potassium Carbon Dioxide Anion Gap BUN Creatinine Est GFR ( Amer) Est GFR (Non-Af Amer) POC Glucose (mg/dL) 141 H Random Glucose Hemoglobin A1c Calcium Phosphorus Magnesium Total Bilirubin Direct Bilirubin AST ALT Alkaline Phosphatase Total Protein Albumin Globulin Albumin/Globulin Ratio Triglycerides Cholesterol LDL Cholesterol Direct HDL Cholesterol Amylase Lipase Alpha Fetoprotein Thyroxine (T4) Total T3 TSH 3rd Generation Venous Blood Potassium 3.6 Urine Color Urine Clarity Urine pH Ur Specific [place] Urine Protein Urine Glucose (UA) Urine Ketones Urine Blood Urine Nitrate Urine Bilirubin Urine Urobilinogen Ur Leukocyte Esterase Urine RBC (Auto) Urine Microscopic WBC Ur Squamous Epith Cells Urine Bacteria Hep Bs Antigen Blood Type Blood Type Confirm Antibody Screen BBK History Checked 09/29/18 09/29/18 09/29/18 20:10 20:10 20:12 WBC RBC Hgb Hct MCV MCH MCHC RDW Plt Count MPV Neut % (Auto) Lymph % (Auto) [place] % (Auto) Eos % (Auto) Baso % (Auto) Neut # (Auto) Lymph # (Auto) [place] # (Auto) Eos # (Auto) Baso # (Auto) Neutrophils % (Manual) Band Neutrophils % Lymphocytes % (Manual) Monocytes % (Manual) Eosinophils % (Manual) Toxic Granulation Platelet Estimate Hypochromasia (manual) Anisocytosis (manual) PT 14.3 H INR 1.3 APTT 32.1 pO2 31 VBG pH 7.43 VBG pCO2 47 VBG HCO3 28.5 VBG Total CO2 32.6 H VBG O2 Sat (Calc) 65.8 H VBG Base Excess 5.8 H VBG Potassium 4.8 Sodium 140 138.0 Chloride 101 106.0 Glucose 137 H Lactate 2.7 H FiO2 21.0 Potassium 4.1 Carbon Dioxide 30 Anion Gap 13 BUN 24 H Creatinine 0.9 Est GFR ( Amer) > 60 Est GFR (Non-Af Amer) > 60 POC Glucose (mg/dL) Random Glucose 130 H Hemoglobin A1c Calcium 9.4 Phosphorus 3.0 Magnesium 1.8 Total Bilirubin 2.1 H Direct Bilirubin AST 1450 H ALT 724 H D Alkaline Phosphatase 204 H Total Protein 7.6 Albumin 3.8 Globulin 3.8 Albumin/Globulin Ratio 1.0 Triglycerides Cholesterol LDL Cholesterol Direct HDL Cholesterol Amylase Lipase Alpha Fetoprotein Thyroxine (T4) Total T3 TSH 3rd Generation Venous Blood Potassium 4.8 Urine Color Urine Clarity Urine pH Ur Specific [place] Urine Protein Urine Glucose (UA) Urine Ketones Urine Blood Urine Nitrate Urine Bilirubin Urine Urobilinogen Ur Leukocyte Esterase Urine RBC (Auto) Urine Microscopic WBC Ur Squamous Epith Cells Urine Bacteria Hep Bs Antigen Blood Type Blood Type Confirm Antibody Screen BBK History Checked 09/29/18 09/30/18 09/30/18 22:11 01:22 05:56 WBC RBC Hgb Hct MCV MCH MCHC RDW Plt Count MPV Neut % (Auto) Lymph % (Auto) [place] % (Auto) Eos % (Auto) Baso % (Auto) Neut # (Auto) Lymph # (Auto) [place] # (Auto) Eos # (Auto) Baso # (Auto) Neutrophils % (Manual) Band Neutrophils % Lymphocytes % (Manual) Monocytes % (Manual) Eosinophils % (Manual) Toxic Granulation Platelet Estimate Hypochromasia (manual) Anisocytosis (manual) PT INR APTT pO2 VBG pH VBG pCO2 VBG HCO3 VBG Total CO2 VBG O2 Sat (Calc) VBG Base Excess VBG Potassium Sodium Chloride Glucose Lactate FiO2 Potassium Carbon Dioxide Anion Gap BUN Creatinine Est GFR ( Amer) Est GFR (Non-Af Amer) POC Glucose (mg/dL) 121 H 134 H Random Glucose Hemoglobin A1c Calcium Phosphorus Magnesium Total Bilirubin Direct Bilirubin AST ALT Alkaline Phosphatase Total Protein Albumin Globulin Albumin/Globulin Ratio Triglycerides Cholesterol LDL Cholesterol Direct HDL Cholesterol Amylase Lipase Alpha Fetoprotein Thyroxine (T4) Total T3 TSH 3rd Generation Venous Blood Potassium Urine Color [place] Urine Clarity Slighty-cloudy Urine pH 7.0 Ur Specific [place] 1.018 Urine Protein 30 Urine Glucose (UA) Neg Urine Ketones Negative Urine Blood Negative Urine Nitrate Negative Urine Bilirubin Negative Urine Urobilinogen 4.0 H Ur Leukocyte Esterase Trace Urine RBC (Auto) 2 Urine Microscopic WBC 6 H Ur Squamous Epith Cells 1 Urine Bacteria Rare Hep Bs Antigen Blood Type Blood Type Confirm Antibody Screen BBK History Checked 09/30/18 09/30/18 09/30/18 07:05 07:05 07:05 WBC 10.7 D RBC 3.37 L Hgb 10.2 L D Hct 30.1 L MCV 89.3 MCH 30.2 MCHC 33.8 RDW 14.0 Plt Count 112 L D MPV 8.2 Neut % (Auto) 87.3 H Lymph % (Auto) 6.7 L [place] % (Auto) 5.8 Eos % (Auto) 0.1 Baso % (Auto) 0.1 Neut # (Auto) 9.3 H Lymph # (Auto) 0.7 L [place] # (Auto) 0.6 Eos # (Auto) 0.0 Baso # (Auto) 0.0 Neutrophils % (Manual) Band Neutrophils % Lymphocytes % (Manual) Monocytes % (Manual) Eosinophils % (Manual) Toxic Granulation Platelet Estimate Hypochromasia (manual) Anisocytosis (manual) PT 17.5 H INR 1.5 APTT 37.1 pO2 VBG pH VBG pCO2 VBG HCO3 VBG Total CO2 VBG O2 Sat (Calc) VBG Base Excess VBG Potassium Sodium 142 Chloride 107 Glucose Lactate FiO2 Potassium 4.0 Carbon Dioxide 26 Anion Gap 13 BUN 26 H Creatinine 1.3 H Est GFR ( Amer) 48 Est GFR (Non-Af Amer) 39 POC Glucose (mg/dL) Random Glucose 125 H Hemoglobin A1c Calcium 7.8 L Phosphorus 6.0 H Magnesium 1.7 Total Bilirubin 3.0 H Direct Bilirubin AST 683 H D ALT 497 H D Alkaline Phosphatase 115 Total Protein 5.9 L Albumin 2.9 L D Globulin 3.1 Albumin/Globulin Ratio 0.9 L Triglycerides 82 D Cholesterol 57 LDL Cholesterol Direct < 30 HDL Cholesterol 31 Amylase 50 Lipase 40 Alpha Fetoprotein Thyroxine (T4) 7.71 Total T3 0.493 L TSH 3rd Generation 0.24 L Venous Blood Potassium Urine Color Urine Clarity Urine pH Ur Specific [place] Urine Protein Urine Glucose (UA) Urine Ketones Urine Blood Urine Nitrate Urine Bilirubin Urine Urobilinogen Ur Leukocyte Esterase Urine RBC (Auto) Urine Microscopic WBC Ur Squamous Epith Cells Urine Bacteria Hep Bs Antigen Negative Blood Type Blood Type Confirm Antibody Screen BBK History Checked 09/30/18 09/30/18 09/30/18 07:05 08:02 09:00 WBC RBC Hgb Hct MCV MCH MCHC RDW Plt Count MPV Neut % (Auto) Lymph % (Auto) [place] % (Auto) Eos % (Auto) Baso % (Auto) Neut # (Auto) Lymph # (Auto) [place] # (Auto) Eos # (Auto) Baso # (Auto) Neutrophils % (Manual) Band Neutrophils % Lymphocytes % (Manual) Monocytes % (Manual) Eosinophils % (Manual) Toxic Granulation Platelet Estimate Hypochromasia (manual) Anisocytosis (manual) PT INR APTT pO2 VBG pH VBG pCO2 VBG HCO3 VBG Total CO2 VBG O2 Sat (Calc) VBG Base Excess VBG Potassium Sodium Chloride Glucose Lactate FiO2 Potassium Carbon Dioxide Anion Gap BUN Creatinine Est GFR ( Amer) Est GFR (Non-Af Amer) POC Glucose (mg/dL) Random Glucose Hemoglobin A1c 8.2 H Calcium Phosphorus Magnesium Total Bilirubin Direct Bilirubin AST ALT Alkaline Phosphatase Total Protein Albumin Globulin Albumin/Globulin Ratio Triglycerides Cholesterol LDL Cholesterol Direct HDL Cholesterol Amylase Lipase Alpha Fetoprotein Thyroxine (T4) Total T3 TSH 3rd Generation Venous Blood Potassium Urine Color Urine Clarity Urine pH Ur Specific [place] Urine Protein Urine Glucose (UA) Urine Ketones Urine Blood Urine Nitrate Urine Bilirubin Urine Urobilinogen Ur Leukocyte Esterase Urine RBC (Auto) Urine Microscopic WBC Ur Squamous Epith Cells Urine Bacteria Hep Bs Antigen Blood Type B POSITIVE Blood Type Confirm B POSITIVE Antibody Screen Negative BBK History Checked No verified bt 09/30/18 09/30/18 09/30/18 10:40 13:00 13:30 WBC RBC Hgb Hct MCV MCH MCHC RDW Plt Count MPV Neut % (Auto) Lymph % (Auto) [place] % (Auto) Eos % (Auto) Baso % (Auto) Neut # (Auto) Lymph # (Auto) [place] # (Auto) Eos # (Auto) Baso # (Auto) Neutrophils % (Manual) Band Neutrophils % Lymphocytes % (Manual) Monocytes % (Manual) Eosinophils % (Manual) Toxic Granulation Platelet Estimate Hypochromasia (manual) Anisocytosis (manual) PT INR APTT pO2 VBG pH VBG pCO2 VBG HCO3 VBG Total CO2 VBG O2 Sat (Calc) VBG Base Excess VBG Potassium Sodium 141 Chloride 106 Glucose Lactate FiO2 Potassium 3.7 Carbon Dioxide 26 Anion Gap 13 BUN 24 H Creatinine 1.1 Est GFR ( Amer) 58 Est GFR (Non-Af Amer) 48 POC Glucose (mg/dL) 115 H Random Glucose 106 H Hemoglobin A1c Calcium 8.6 Phosphorus Magnesium 1.9 Total Bilirubin 3.5 H Direct Bilirubin 2.8 H AST 558 H ALT 447 H Alkaline Phosphatase 112 Total Protein 6.1 L Albumin 2.9 L Globulin 3.1 Albumin/Globulin Ratio 0.9 L Triglycerides Cholesterol LDL Cholesterol Direct HDL Cholesterol Amylase Lipase Alpha Fetoprotein 1.8 Thyroxine (T4) Total T3 TSH 3rd Generation Venous Blood Potassium Urine Color Urine Clarity Urine pH Ur Specific [place] Urine Protein Urine Glucose (UA) Urine Ketones Urine Blood Urine Nitrate Urine Bilirubin Urine Urobilinogen Ur Leukocyte Esterase Urine RBC (Auto) Urine Microscopic WBC Ur Squamous Epith Cells Urine Bacteria Hep Bs Antigen Blood Type Blood Type Confirm Antibody Screen BBK History Checked 09/30/18 16:13 WBC RBC Hgb Hct MCV MCH MCHC RDW Plt Count MPV Neut % (Auto) Lymph % (Auto) [place] % (Auto) Eos % (Auto) Baso % (Auto) Neut # (Auto) Lymph # (Auto) [place] # (Auto) Eos # (Auto) Baso # (Auto) Neutrophils % (Manual) Band Neutrophils % Lymphocytes % (Manual) Monocytes % (Manual) Eosinophils % (Manual) Toxic Granulation Platelet Estimate Hypochromasia (manual) Anisocytosis (manual) PT INR APTT pO2 VBG pH VBG pCO2 VBG HCO3 VBG Total CO2 VBG O2 Sat (Calc) VBG Base Excess VBG Potassium Sodium Chloride Glucose Lactate FiO2 Potassium Carbon Dioxide Anion Gap BUN Creatinine Est GFR ( Amer) Est GFR (Non-Af Amer) POC Glucose (mg/dL) 120 H Random Glucose Hemoglobin A1c Calcium Phosphorus Magnesium Total Bilirubin Direct Bilirubin AST ALT Alkaline Phosphatase Total Protein Albumin Globulin Albumin/Globulin Ratio Triglycerides Cholesterol LDL Cholesterol Direct HDL Cholesterol Amylase Lipase Alpha Fetoprotein Thyroxine (T4) Total T3 TSH 3rd Generation Venous Blood Potassium Urine Color Urine Clarity Urine pH Ur Specific [place] Urine Protein Urine Glucose (UA) Urine Ketones Urine Blood Urine Nitrate Urine Bilirubin Urine Urobilinogen Ur Leukocyte Esterase Urine RBC (Auto) Urine Microscopic WBC Ur Squamous Epith Cells Urine Bacteria Hep Bs Antigen Blood Type Blood Type Confirm Antibody Screen BBK History Checked - Imaging and Cardiology MRI - abdomen Status: Image reviewed by me, Report reviewed by me Assessment & Plan - Assessment and Plan (Free Text) Plan: - Start clear liquid diet - pain control - IV fluids - Continue Zosyn - Repeat labs in am - Will hold off on HIDA scan at this point in time - Patient will require cholecystectomy once LFTs improve - Medical and Cardiac clearance for surgery - Will follow patient closely
[2018-09-30 21:07] LABS: HEPATITIS B SURFACE AG Negative (NEGATIVE)
[2018-09-30 21:11] LABS: HEPATITIS A IGM NEGATIVE (NEGATIVE); HEPATITIS B CORE AB NEGATIVE (NEGATIVE)
[2018-09-30 21:13] LABS: HEPATITIS A IGM NEGATIVE (NEGATIVE); HEPATITIS B CORE AB NEGATIVE (NEGATIVE)
[2018-09-30 21:23] LABS: HEPATITIS C ANTIBODY NEGATIVE (NEGATIVE)
[2018-09-30 21:25] LABS: HEPATITIS C ANTIBODY NEGATIVE (NEGATIVE)
--- NOTE | 2018-09-30 23:09 | CON ---
DATE: 09/30/2018 REFERRING PHYSICIAN: Frank Mora MD REASON FOR CONSULTATION: Abdominal pain. HISTORY OF PRESENT ILLNESS: This is an 82-year-old female with history of abdominal pain, nausea, vomiting, epigastric discomfort in the past 24 hours or so. Epigastric region and right upper quadrant pain is improving. Nausea, vomiting as well as all symptoms resolved. Currently lying in bed comfortably, in no apparent distress. PAST MEDICAL HISTORY: Diabetes, hypertension, hyperlipidemia, hypothyroidism. PAST SURGICAL HISTORY: ORIF of the left hip. ALLERGIES: SULFA. MEDICATIONS: Have been reviewed. REVIEW OF SYSTEMS: All other systems have been reviewed and negative apart from the HPI. PHYSICAL EXAMINATION: VITAL SIGNS: Here in the hospital, grossly unremarkable. GENERAL: Well-nourished, pleasant elderly-appearing female, lying in bed comfortably, in no apparent distress. HEENT: Head: Normocephalic and atraumatic. Eyes: Pupils are equally reactive to light bilaterally. No conjunctival pallor or icterus. NECK: Supple. Normal range of motion. No lymphadenopathy appreciated. LUNGS: Coarse breath sounds bilaterally. HEART: S1, S2. Regular rate and rhythm. No murmurs appreciated. ABDOMEN: Soft, nontender. Bowel sounds present. No rebound. No guarding. RECTAL: Deferred. EXTREMITIES: Pulses present bilaterally. SKIN: Warm, dry, and intact. NEUROLOGICAL: A and O x3. LABORATORY DATA: Labs and radiology have been reviewed. WBC of 10.7, hemoglobin 10.2 and stable. Total bili is up to 3. AST and ALT down from 1487/2400 to 683/495. Alkaline phosphatase is normal, less than 204. Ultrasound is ordered and pending. CAT scan as well. MRCP as well. ASSESSMENT AND PLAN: This is an 82-year-old female with abdominal pain and discomfort. ____ otherwise, from Gastrointestinal standpoint, surgical consultation appreciated. Thank you for the consult. Mick Adorno MD/ PhD cc: Frank Mora MD
[2018-10-01] MEDS: Piperacillin/Tazobact 3.375 GM in Sodium Chloride 0.9% 100 ML IVPB SCH ×4 (04:28→21:00)
[2018-10-01 06:37] LABS: INR 1.7; PROTHROMBIN TIME 18.9 Seconds (9.8-13.1)
[2018-10-01 06:39] LABS: PARTIAL THROMBOPLASTIN TIME 82.7 Seconds (25.6-37.1)
[2018-10-01 07:00] LABS: BASO % 0.4 % (0.0-2.0); EOS # 0.1 K/uL (0.0-0.7); EOS % 1.7 % (0.0-4.0); HEMOGLOBIN 9.6 g/dL (12.0-16.0); LYMPH # 1.2 K/uL (1.0-4.3); MEAN CELL VOLUME 91.1 fl (81.0-99.0); MEAN CORPUSCULAR HEMOGLOBIN 30.2 pg (27.0-31.0); MEAN CORPUSCULAR HGB CONC 33.2 g/dL (33.0-37.0); MEAN PLATELET VOLUME 9.4 fl (7.2-11.7); MONO # 0.6 K/uL (0.0-0.8); MONO % 8.5 % (0.0-10.0); NEUT # 4.7 K/uL (1.8-7.0); NEUT % 71.4 % (50.0-75.0); RBC 3.18 Mil/uL (3.80-5.20); RED CELL DISTRIBUTION WIDTH 14.2 % (11.5-14.5); WHITE BLOOD COUNT 6.6 K/uL (4.8-10.8)
[2018-10-01 07:03] LABS: ALB/GLOB RATIO 0.9 (1.0-2.1); ALBUMIN 2.7 g/dL (3.5-5.0); ALT/SGPT 312 U/L (9-52); AST/SGOT 262 U/L (14-36); BLOOD UREA NITROGEN 18 mg/dl (7-17); CALCIUM 8.2 mg/dL (8.4-10.2); GFR NON-AFRICAN AMERICAN 53
[2018-10-01] MEDS: Insulin Lispro Mix 75/25 100 units/ml (HumaLog) 10ml SC SCH (08:43)
[2018-10-01] MEDS: Levothyroxine 88 MCG TAB PO SCH (08:44)
[2018-10-01] MEDS: Insulin Regular 100 units/ml SC SCH ×4 (08:44→21:02)
--- NOTE | 2018-10-01 09:33 | CP.PCM.CON ---
History of Present Illness - History of Present Illness History of Present Illness: The patient was seen at the request of Dr. Huerta. This 82-year-old female was found sitting up comfortably in a chair with her daughter at bedside. She gave history of arriving in the emergency room with complaints of repeated vomiting chills and a right upper quadrant pain. She reported this right upper quadrant pain had occurred off and on for quite some time but this was the first time it was accompanied by repeated vomiting. She is a long-standing hypertensive and diabetic and has taken her diabetic medication regularly while taking her antihypertensives erratically. She has never been a smoker. She is quite independent and can walk up to 4-5 blocks without any difficulty. She has never experienced any effort related chest pain or myocardial infarction or symptoms of congestive cardiac failure. There is a history of having required venous stripping more than 35 years back for severe varicosities over both lower extremities. She reports that intermittently she observes pedal edema particularly if she spends a fair amount of time sitting in the chair. This consultation was requested to evaluate her for her suitability to undergo cholecystectomy. On physical examination this was an elderly lady quite alert awake coherent receiving intravenous infusion and antibiotics. She was afebrile with a respiratory rate of 14 breaths/min and a heart rate of 80 bpm and regular. Her blood pressure was 138/74 mmHg. Her jugular venous pressure was not elevated and there was minimal pitting edema over both lower extremities more on the right than left. The pedal pulses were well felt. Her jugular venous pressure was not elevated and there were no carotid bruits. Thyroid and breast did not reveal anything abnormal. Her chest was clear and heart sounds were pure. There is vague tenderness in the right upper quadrant but no guarding rigidity. Her electrocardiogram showed sinus rhythm with a pattern suggestive of left ventricular hypertrophy. No Q waves were evident on the cardiogram. Her echocardiogram showed preserved left ventricular systolic function with a depressed diastolic compliance. Her lab data was noted. There was no leukocytosis. Her BUN/creatinine were stable and potassium was stable. AST and ALT markedly elevated at admission were rapidly returning to normal Serum bilirubin was persistently elevated. Impression: Acute cholecystitis with a history of hypertension and diabetes mellitus The patient is medically stable to proceed with her planned surgery under necessary anesthesia. Because she takes a beta-yumiko as part of her antihypertensive regimen, I have instructed the nurse to give her her today's dose with a small amount of water. Past Patient History - Past Medical History & Family History Past Medical History?: Yes - Past Social History Alcohol: None Drugs: Denies Home Situation {Lives}: With Family - CARDIAC Hx Hypertension: Yes - PULMONARY Hx Respiratory Disorders: No - NEUROLOGICAL Hx Neurological Disorder: Yes - HEENT Hx HEENT Problems: No - RENAL Hx Chronic Kidney Disease: No - ENDOCRINE/METABOLIC Hx Diabetes Mellitus Type 2: Yes Hx Hypothyroidism: Yes - HEMATOLOGICAL/ONCOLOGICAL Hx Blood Disorders: No - INTEGUMENTARY Hx Dermatological Problems: No - MUSCULOSKELETAL/RHEUMATOLOGICAL Hx Arthritis: Yes - PSYCHIATRIC Hx Substance Use: No - SURGICAL HISTORY Hx Surgeries: Yes Hx Musculoskeletal Surgery: Yes (left ankle surgery 2013, left leg surgery in 1993) Hx Orthopedic Surgery: Yes (bilateral shoulder surgery) Other/Comment: left leg sx (tib-fib fx 1989) - ANESTHESIA Hx Anesthesia: Yes Hx Anesthesia Reactions: No Hx Malignant Hyperthermia: No Has any member of the family had a problem w/ anesthesia?: Yes Meds Allergies/Adverse Reactions: Allergies Allergy/AdvReac Type Severity Reaction Status Date / Time Sulfa (Sulfonamide Allergy RASH Verified 09/29/18 18:52 Antibiotics) - Medications Medications: Current Medications Carvedilol (Coreg) 12.5 mg PO Q12 [facility] Dextrose (Dextrose 50% Inj) 0 ml IV STAT PRN; Protocol PRN Reason: Hypoglycemia Protocol Dextrose (Glutose 15) 0 gm PO ONCE PRN; Protocol PRN Reason: Hypoglycemia Protocol Gabapentin (Neurontin) 300 mg PO Q8 [facility] Last Admin: 10/01/18 08:44 Dose: Not Given Glucagon (Glucagen Diagnostic Kit) 0 mg IM STAT PRN; Protocol PRN Reason: Hypoglycemia Protocol Piperacillin Sod/Tazobactam (Sod 3.375 gm/ Sodium Chloride) 100 mls @ 100 mls/hr IVPB Q6 [facility]; Protocol Last Admin: 10/01/18 09:00 Dose: 100 mls/hr Sodium Chloride (Sodium Chloride 0.9%) 1,000 mls @ 100 mls/hr IV .Q10H [facility] Stop: 10/01/18 13:42 Last Admin: 09/30/18 23:55 Dose: Not Given Insulin Human Regular (Humulin R) 0 units SC ACHS [facility]; Protocol Last Admin: 10/01/18 08:44 Dose: Not Given Insulin Lispro Protam/Lispro Human (Humalog Mix 75/25) 20 units SC ACB [facility] Last Admin: 10/01/18 08:43 Dose: Not Given Levothyroxine Sodium (Synthroid) 88 mcg PO DAILY@0630 [facility] Last Admin: 10/01/18 08:44 Dose: Not Given Morphine Sulfate (Morphine) 1 mg IVP Q4 PRN PRN Reason: Pain, moderate (4-7) Ondansetron HCl (Zofran Inj) 4 mg IVP Q4 PRN PRN Reason: Nausea/Vomiting Pantoprazole Sodium (Protonix Inj) 40 mg IVP DAILY [facility] Last Admin: 10/01/18 09:01 Dose: 40 mg Results - Vital Signs Recent Vital Signs: Last Vital Signs Temp 99.4 F 10/01/18 08:11 Pulse 89 10/01/18 08:11 Resp 20 10/01/18 08:11 BP 124/60 10/01/18 08:11 Pulse Ox 93 L 10/01/18 08:11 - Labs Result Diagrams: 10/01/18 06:15 10/01/18 06:15 Labs: Laboratory Results - last 24 hr 09/30/18 09/30/18 09/30/18 07:05 08:02 09:00 WBC RBC Hgb Hct MCV MCH MCHC RDW Plt Count MPV Neut % (Auto) Lymph % (Auto) [place] % (Auto) Eos % (Auto) Baso % (Auto) Neut # (Auto) Lymph # (Auto) [place] # (Auto) Eos # (Auto) Baso # (Auto) PT INR APTT Sodium 142 Potassium 4.0 Chloride 107 Carbon Dioxide 26 Anion Gap 13 BUN 26 H Creatinine 1.3 H Est GFR ( Amer) 48 Est GFR (Non-Af Amer) 39 POC Glucose (mg/dL) Random Glucose 125 H Hemoglobin A1c 8.2 H Calcium 7.8 L Phosphorus 6.0 H Magnesium 1.7 Total Bilirubin 3.0 H Direct Bilirubin AST 683 H D ALT 497 H D Alkaline Phosphatase 115 Total Protein 5.9 L Albumin 2.9 L D Globulin 3.1 Albumin/Globulin Ratio 0.9 L Triglycerides 82 D Cholesterol 57 LDL Cholesterol Direct < 30 HDL Cholesterol 31 Amylase 50 Lipase 40 Alpha Fetoprotein Thyroxine (T4) 7.71 Total T3 0.493 L TSH 3rd Generation 0.24 L Hepatitis A IgM Ab Hepatitis A Ab Total Hep Bs Antigen Negative Hep Bs Antibody Hep B Core IgM Ab Hepatitis C Antibody Blood Type Confirm B POSITIVE 09/30/18 09/30/18 09/30/18 10:40 13:00 13:30 WBC RBC Hgb Hct MCV MCH MCHC RDW Plt Count MPV Neut % (Auto) Lymph % (Auto) [place] % (Auto) Eos % (Auto) Baso % (Auto) Neut # (Auto) Lymph # (Auto) [place] # (Auto) Eos # (Auto) Baso # (Auto) PT INR APTT Sodium Potassium Chloride Carbon Dioxide Anion Gap BUN Creatinine Est GFR ( Amer) Est GFR (Non-Af Amer) POC Glucose (mg/dL) 115 H Random Glucose Hemoglobin A1c Calcium Phosphorus Magnesium Total Bilirubin Direct Bilirubin AST ALT Alkaline Phosphatase Total Protein Albumin Globulin Albumin/Globulin Ratio Triglycerides Cholesterol LDL Cholesterol Direct HDL Cholesterol Amylase Lipase Alpha Fetoprotein 1.8 Thyroxine (T4) Total T3 TSH 3rd Generation Hepatitis A IgM Ab Negative Hepatitis A Ab Total Hep Bs Antigen Negative Hep Bs Antibody Hep B Core IgM Ab Negative Hepatitis C Antibody Negative Blood Type Confirm 09/30/18 09/30/18 09/30/18 13:30 13:30 13:30 WBC RBC Hgb Hct MCV MCH MCHC RDW Plt Count MPV Neut % (Auto) Lymph % (Auto) [place] % (Auto) Eos % (Auto) Baso % (Auto) Neut # (Auto) Lymph # (Auto) [place] # (Auto) Eos # (Auto) Baso # (Auto) PT INR APTT Sodium 141 Potassium 3.7 Chloride 106 Carbon Dioxide 26 Anion Gap 13 BUN 24 H Creatinine 1.1 Est GFR ( Amer) 58 Est GFR (Non-Af Amer) 48 POC Glucose (mg/dL) Random Glucose 106 H Hemoglobin A1c Calcium 8.6 Phosphorus Magnesium 1.9 Total Bilirubin 3.5 H Direct Bilirubin 2.8 H AST 558 H ALT 447 H Alkaline Phosphatase 112 Total Protein 6.1 L Albumin 2.9 L Globulin 3.1 Albumin/Globulin Ratio 0.9 L Triglycerides Cholesterol LDL Cholesterol Direct HDL Cholesterol Amylase Lipase Alpha Fetoprotein Thyroxine (T4) Total T3 TSH 3rd Generation Hepatitis A IgM Ab Negative Hepatitis A Ab Total Antibody pos Hep Bs Antigen Hep Bs Antibody Positive Hep B Core IgM Ab Negative Hepatitis C Antibody Negative Blood Type Confirm 09/30/18 09/30/18 10/01/18 16:13 21:09 05:08 WBC RBC Hgb Hct MCV MCH MCHC RDW Plt Count MPV Neut % (Auto) Lymph % (Auto) [place] % (Auto) Eos % (Auto) Baso % (Auto) Neut # (Auto) Lymph # (Auto) [place] # (Auto) Eos # (Auto) Baso # (Auto) PT INR APTT Sodium Potassium Chloride Carbon Dioxide Anion Gap BUN Creatinine Est GFR ( Amer) Est GFR (Non-Af Amer) POC Glucose (mg/dL) 120 H 266 H 100 Random Glucose Hemoglobin A1c Calcium Phosphorus Magnesium Total Bilirubin Direct Bilirubin AST ALT Alkaline Phosphatase Total Protein Albumin Globulin Albumin/Globulin Ratio Triglycerides Cholesterol LDL Cholesterol Direct HDL Cholesterol Amylase Lipase Alpha Fetoprotein Thyroxine (T4) Total T3 TSH 3rd Generation Hepatitis A IgM Ab Hepatitis A Ab Total Hep Bs Antigen Hep Bs Antibody Hep B Core IgM Ab Hepatitis C Antibody Blood Type Confirm 10/01/18 10/01/18 10/01/18 06:15 06:15 06:15 WBC 6.6 RBC 3.18 L Hgb 9.6 L Hct 28.9 L MCV 91.1 MCH 30.2 MCHC 33.2 RDW 14.2 Plt Count 93 L MPV 9.4 Neut % (Auto) 71.4 Lymph % (Auto) 18.0 L [place] % (Auto) 8.5 Eos % (Auto) 1.7 Baso % (Auto) 0.4 Neut # (Auto) 4.7 Lymph # (Auto) 1.2 [place] # (Auto) 0.6 Eos # (Auto) 0.1 Baso # (Auto) 0.0 PT 18.9 H INR 1.7 APTT 82.7 H Sodium 139 Potassium 3.9 Chloride 110 H Carbon Dioxide 21 L Anion Gap 12 BUN 18 H Creatinine 1.0 Est GFR ( Amer) > 60 Est GFR (Non-Af Amer) 53 POC Glucose (mg/dL) Random Glucose 103 Hemoglobin A1c Calcium 8.2 L Phosphorus 2.8 Magnesium 1.9 Total Bilirubin 3.2 H Direct Bilirubin AST 262 H D ALT 312 H D Alkaline Phosphatase 104 Total Protein 5.8 L Albumin 2.7 L Globulin 3.1 Albumin/Globulin Ratio 0.9 L Triglycerides Cholesterol LDL Cholesterol Direct HDL Cholesterol Amylase Lipase Alpha Fetoprotein Thyroxine (T4) Total T3 TSH 3rd Generation Hepatitis A IgM Ab Hepatitis A Ab Total Hep Bs Antigen Hep Bs Antibody Hep B Core IgM Ab Hepatitis C Antibody Blood Type Confirm
--- NOTE | 2018-10-01 09:34 | CP.PCM.PN ---
Subjective - Date & Time of Evaluation Date of Evaluation: 10/01/18 Time of Evaluation: 09:34 - Subjective Subjective: ID note- Patient seen and examined today with her daughter at her bedside. Pt. states she is feeling better jadiel. denies any nausea or fever and her abdominal pain is much less. she states she is tolerating liquid diet today. awaiting cholecystectomy as per surgical team. denies any dysurea. Objective - Vital Signs/Intake and Output Vital Signs (last 24 hours): Temp Pulse Resp BP Pulse Ox 99.4 F 89 20 124/60 93 L 10/01/18 08:11 10/01/18 08:11 10/01/18 08:11 10/01/18 08:11 10/01/18 08:11 - Medications Medications: Current Medications Carvedilol (Coreg) 12.5 mg PO Q12 [facility] Dextrose (Dextrose 50% Inj) 0 ml IV STAT PRN; Protocol PRN Reason: Hypoglycemia Protocol Dextrose (Glutose 15) 0 gm PO ONCE PRN; Protocol PRN Reason: Hypoglycemia Protocol Gabapentin (Neurontin) 300 mg PO Q8 [facility] Last Admin: 10/01/18 08:44 Dose: Not Given Glucagon (Glucagen Diagnostic Kit) 0 mg IM STAT PRN; Protocol PRN Reason: Hypoglycemia Protocol Piperacillin Sod/Tazobactam (Sod 3.375 gm/ Sodium Chloride) 100 mls @ 100 mls/hr IVPB Q6 [facility]; Protocol Last Admin: 10/01/18 09:00 Dose: 100 mls/hr Sodium Chloride (Sodium Chloride 0.9%) 1,000 mls @ 100 mls/hr IV .Q10H [facility] Stop: 10/01/18 13:42 Last Admin: 09/30/18 23:55 Dose: Not Given Insulin Human Regular (Humulin R) 0 units SC ACHS [facility]; Protocol Last Admin: 10/01/18 08:44 Dose: Not Given Insulin Lispro Protam/Lispro Human (Humalog Mix 75/25) 20 units SC ACB [facility] Last Admin: 10/01/18 08:43 Dose: Not Given Levothyroxine Sodium (Synthroid) 88 mcg PO DAILY@0630 [facility] Last Admin: 10/01/18 08:44 Dose: Not Given Morphine Sulfate (Morphine) 1 mg IVP Q4 PRN PRN Reason: Pain, moderate (4-7) Ondansetron HCl (Zofran Inj) 4 mg IVP Q4 PRN PRN Reason: Nausea/Vomiting Pantoprazole Sodium (Protonix Inj) 40 mg IVP DAILY [facility] Last Admin: 10/01/18 09:01 Dose: 40 mg - Labs Labs: - Additional Findings Additional findings: Constitutional Appears: No Acute Distress - Head Exam Head Exam: ATRAUMATIC - Eye Exam Eye Exam: EOMI - ENT Exam ENT Exam: Normal Oropharynx - Neck Exam Neck exam: Positive for: Full Rom - Respiratory Exam Respiratory Exam: Clear to Auscultation Bilateral, NORMAL BREATHING PATTERN - Cardiovascular Exam Cardiovascular Exam: RRR, +S1, +S2 - GI/Abdominal Exam GI & Abdominal Exam: Normal Bowel Sounds, Soft Additional comments: minimal Pain in left lower abd with palpation, less than yesterday No guarding No rebound - Extremities Exam Extremities exam: Positive for: normal inspection - Neurological Exam Neurological exam: Alert, Oriented x 3 Laboratory Results - last 72 hr 09/29/18 09/29/18 09/29/18 00:02 19:22 20:10 WBC 4.5 L RBC 4.31 Hgb 12.8 Hct 38.2 MCV 88.7 D MCH 29.8 MCHC 33.6 RDW 14.1 Plt Count 151 MPV 9.3 Neut % (Auto) 88.1 H Lymph % (Auto) 6.5 L [place] % (Auto) 5.0 Eos % (Auto) 0.2 Baso % (Auto) 0.2 Neut # (Auto) 4.0 Lymph # (Auto) 0.3 L [place] # (Auto) 0.2 Eos # (Auto) 0.0 Baso # (Auto) 0.0 Neutrophils % (Manual) 82 H Band Neutrophils % 3 H Lymphocytes % (Manual) 8 L Monocytes % (Manual) 6 Eosinophils % (Manual) 1 Toxic Granulation Present Platelet Estimate Normal Hypochromasia (manual) Slight Anisocytosis (manual) Slight Haptoglobin PT INR APTT pO2 51 VBG pH 7.44 H VBG pCO2 40 VBG HCO3 26.8 VBG Total CO2 28.4 H VBG O2 Sat (Calc) 91.6 H VBG Base Excess 2.8 H VBG Potassium 3.6 Sodium 139.0 Chloride 108.0 H Glucose 119 H Lactate 2.8 H FiO2 21.0 Potassium Carbon Dioxide Anion Gap BUN Creatinine Est GFR ( Amer) Est GFR (Non-Af Amer) POC Glucose (mg/dL) 141 H Random Glucose Hemoglobin A1c Calcium Phosphorus Magnesium Iron TIBC % Saturation Transferrin Ferritin Total Bilirubin Direct Bilirubin AST ALT Alkaline Phosphatase Total Protein Albumin Globulin Albumin/Globulin Ratio Triglycerides Cholesterol LDL Cholesterol Direct HDL Cholesterol Amylase Lipase Alpha Fetoprotein Thyroxine (T4) Total T3 TSH 3rd Generation Venous Blood Potassium 3.6 Urine Color Urine Clarity Urine pH Ur Specific [place] Urine Protein Urine Glucose (UA) Urine Ketones Urine Blood Urine Nitrate Urine Bilirubin Urine Urobilinogen Ur Leukocyte Esterase Urine RBC (Auto) Urine Microscopic WBC Ur Squamous Epith Cells Urine Bacteria DIAMOND 6 Profile Anti-Mitochondrial Ab Hepatitis A IgM Ab Hepatitis A Ab Total Hep Bs Antigen Hep Bs Antibody Hep B Core IgM Ab Hepatitis C Antibody Blood Type Blood Type Confirm Antibody Screen BBK History Checked 09/29/18 09/29/18 09/29/18 20:10 20:10 20:12 WBC RBC Hgb Hct MCV MCH MCHC RDW Plt Count MPV Neut % (Auto) Lymph % (Auto) [place] % (Auto) Eos % (Auto) Baso % (Auto) Neut # (Auto) Lymph # (Auto) [place] # (Auto) Eos # (Auto) Baso # (Auto) Neutrophils % (Manual) Band Neutrophils % Lymphocytes % (Manual) Monocytes % (Manual) Eosinophils % (Manual) Toxic Granulation Platelet Estimate Hypochromasia (manual) Anisocytosis (manual) Haptoglobin PT 14.3 H INR 1.3 APTT 32.1 pO2 31 VBG pH 7.43 VBG pCO2 47 VBG HCO3 28.5 VBG Total CO2 32.6 H VBG O2 Sat (Calc) 65.8 H VBG Base Excess 5.8 H VBG Potassium 4.8 Sodium 140 138.0 Chloride 101 106.0 Glucose 137 H Lactate 2.7 H FiO2 21.0 Potassium 4.1 Carbon Dioxide 30 Anion Gap 13 BUN 24 H Creatinine 0.9 Est GFR ( Amer) > 60 Est GFR (Non-Af Amer) > 60 POC Glucose (mg/dL) Random Glucose 130 H Hemoglobin A1c Calcium 9.4 Phosphorus 3.0 Magnesium 1.8 Iron TIBC % Saturation Transferrin Ferritin Total Bilirubin 2.1 H Direct Bilirubin AST 1450 H ALT 724 H D Alkaline Phosphatase 204 H Total Protein 7.6 Albumin 3.8 Globulin 3.8 Albumin/Globulin Ratio 1.0 Triglycerides Cholesterol LDL Cholesterol Direct HDL Cholesterol Amylase Lipase Alpha Fetoprotein Thyroxine (T4) Total T3 TSH 3rd Generation Venous Blood Potassium 4.8 Urine Color Urine Clarity Urine pH Ur Specific [place] Urine Protein Urine Glucose (UA) Urine Ketones Urine Blood Urine Nitrate Urine Bilirubin Urine Urobilinogen Ur Leukocyte Esterase Urine RBC (Auto) Urine Microscopic WBC Ur Squamous Epith Cells Urine Bacteria DIAMOND 6 Profile Anti-Mitochondrial Ab Hepatitis A IgM Ab Hepatitis A Ab Total Hep Bs Antigen Hep Bs Antibody Hep B Core IgM Ab Hepatitis C Antibody Blood Type Blood Type Confirm Antibody Screen BBK History Checked 09/29/18 09/30/18 09/30/18 22:11 01:22 05:56 WBC RBC Hgb Hct MCV MCH MCHC RDW Plt Count MPV Neut % (Auto) Lymph % (Auto) [place] % (Auto) Eos % (Auto) Baso % (Auto) Neut # (Auto) Lymph # (Auto) [place] # (Auto) Eos # (Auto) Baso # (Auto) Neutrophils % (Manual) Band Neutrophils % Lymphocytes % (Manual) Monocytes % (Manual) Eosinophils % (Manual) Toxic Granulation Platelet Estimate Hypochromasia (manual) Anisocytosis (manual) Haptoglobin PT INR APTT pO2 VBG pH VBG pCO2 VBG HCO3 VBG Total CO2 VBG O2 Sat (Calc) VBG Base Excess VBG Potassium Sodium Chloride Glucose Lactate FiO2 Potassium Carbon Dioxide Anion Gap BUN Creatinine Est GFR ( Amer) Est GFR (Non-Af Amer) POC Glucose (mg/dL) 121 H 134 H Random Glucose Hemoglobin A1c Calcium Phosphorus Magnesium Iron TIBC % Saturation Transferrin Ferritin Total Bilirubin Direct Bilirubin AST ALT Alkaline Phosphatase Total Protein Albumin Globulin Albumin/Globulin Ratio Triglycerides Cholesterol LDL Cholesterol Direct HDL Cholesterol Amylase Lipase Alpha Fetoprotein Thyroxine (T4) Total T3 TSH 3rd Generation Venous Blood Potassium Urine Color [place] Urine Clarity Slighty-cloudy Urine pH 7.0 Ur Specific [place] 1.018 Urine Protein 30 Urine Glucose (UA) Neg Urine Ketones Negative Urine Blood Negative Urine Nitrate Negative Urine Bilirubin Negative Urine Urobilinogen 4.0 H Ur Leukocyte Esterase Trace Urine RBC (Auto) 2 Urine Microscopic WBC 6 H Ur Squamous Epith Cells 1 Urine Bacteria Rare DIAMOND 6 Profile Anti-Mitochondrial Ab Hepatitis A IgM Ab Hepatitis A Ab Total Hep Bs Antigen Hep Bs Antibody Hep B Core IgM Ab Hepatitis C Antibody Blood Type Blood Type Confirm Antibody Screen BBK History Checked 09/30/18 09/30/18 09/30/18 07:05 07:05 07:05 WBC 10.7 D RBC 3.37 L Hgb 10.2 L D Hct 30.1 L MCV 89.3 MCH 30.2 MCHC 33.8 RDW 14.0 Plt Count 112 L D MPV 8.2 Neut % (Auto) 87.3 H Lymph % (Auto) 6.7 L [place] % (Auto) 5.8 Eos % (Auto) 0.1 Baso % (Auto) 0.1 Neut # (Auto) 9.3 H Lymph # (Auto) 0.7 L [place] # (Auto) 0.6 Eos # (Auto) 0.0 Baso # (Auto) 0.0 Neutrophils % (Manual) Band Neutrophils % Lymphocytes % (Manual) Monocytes % (Manual) Eosinophils % (Manual) Toxic Granulation Platelet Estimate Hypochromasia (manual) Anisocytosis (manual) Haptoglobin PT 17.5 H INR 1.5 APTT 37.1 pO2 VBG pH VBG pCO2 VBG HCO3 VBG Total CO2 VBG O2 Sat (Calc) VBG Base Excess VBG Potassium Sodium 142 Chloride 107 Glucose Lactate FiO2 Potassium 4.0 Carbon Dioxide 26 Anion Gap 13 BUN 26 H Creatinine 1.3 H Est GFR ( Amer) 48 Est GFR (Non-Af Amer) 39 POC Glucose (mg/dL) Random Glucose 125 H Hemoglobin A1c Calcium 7.8 L Phosphorus 6.0 H Magnesium 1.7 Iron TIBC % Saturation Transferrin Ferritin Total Bilirubin 3.0 H Direct Bilirubin AST 683 H D ALT 497 H D Alkaline Phosphatase 115 Total Protein 5.9 L Albumin 2.9 L D Globulin 3.1 Albumin/Globulin Ratio 0.9 L Triglycerides 82 D Cholesterol 57 LDL Cholesterol Direct < 30 HDL Cholesterol 31 Amylase 50 Lipase 40 Alpha Fetoprotein Thyroxine (T4) 7.71 Total T3 0.493 L TSH 3rd Generation 0.24 L Venous Blood Potassium Urine Color Urine Clarity Urine pH Ur Specific [place] Urine Protein Urine Glucose (UA) Urine Ketones Urine Blood Urine Nitrate Urine Bilirubin Urine Urobilinogen Ur Leukocyte Esterase Urine RBC (Auto) Urine Microscopic WBC Ur Squamous Epith Cells Urine Bacteria DIAMOND 6 Profile Anti-Mitochondrial Ab Hepatitis A IgM Ab Hepatitis A Ab Total Hep Bs Antigen Negative Hep Bs Antibody Hep B Core IgM Ab Hepatitis C Antibody Blood Type Blood Type Confirm Antibody Screen BBK History Checked 09/30/18 09/30/18 09/30/18 07:05 08:02 09:00 WBC RBC Hgb Hct MCV MCH MCHC RDW Plt Count MPV Neut % (Auto) Lymph % (Auto) [place] % (Auto) Eos % (Auto) Baso % (Auto) Neut # (Auto) Lymph # (Auto) [place] # (Auto) Eos # (Auto) Baso # (Auto) Neutrophils % (Manual) Band Neutrophils % Lymphocytes % (Manual) Monocytes % (Manual) Eosinophils % (Manual) Toxic Granulation Platelet Estimate Hypochromasia (manual) Anisocytosis (manual) Haptoglobin PT INR APTT pO2 VBG pH VBG pCO2 VBG HCO3 VBG Total CO2 VBG O2 Sat (Calc) VBG Base Excess VBG Potassium Sodium Chloride Glucose Lactate FiO2 Potassium Carbon Dioxide Anion Gap BUN Creatinine Est GFR ( Amer) Est GFR (Non-Af Amer) POC Glucose (mg/dL) Random Glucose Hemoglobin A1c 8.2 H Calcium Phosphorus Magnesium Iron TIBC % Saturation Transferrin Ferritin Total Bilirubin Direct Bilirubin AST ALT Alkaline Phosphatase Total Protein Albumin Globulin Albumin/Globulin Ratio Triglycerides Cholesterol LDL Cholesterol Direct HDL Cholesterol Amylase Lipase Alpha Fetoprotein Thyroxine (T4) Total T3 TSH 3rd Generation Venous Blood Potassium Urine Color Urine Clarity Urine pH Ur Specific [place] Urine Protein Urine Glucose (UA) Urine Ketones Urine Blood Urine Nitrate Urine Bilirubin Urine Urobilinogen Ur Leukocyte Esterase Urine RBC (Auto) Urine Microscopic WBC Ur Squamous Epith Cells Urine Bacteria DIAMOND 6 Profile Anti-Mitochondrial Ab Hepatitis A IgM Ab Hepatitis A Ab Total Hep Bs Antigen Hep Bs Antibody Hep B Core IgM Ab Hepatitis C Antibody Blood Type B POSITIVE Blood Type Confirm B POSITIVE Antibody Screen Negative BBK History Checked No verified bt 09/30/18 09/30/18 09/30/18 10:40 13:00 13:00 WBC RBC Hgb Hct MCV MCH MCHC RDW Plt Count MPV Neut % (Auto) Lymph % (Auto) [place] % (Auto) Eos % (Auto) Baso % (Auto) Neut # (Auto) Lymph # (Auto) [place] # (Auto) Eos # (Auto) Baso # (Auto) Neutrophils % (Manual) Band Neutrophils % Lymphocytes % (Manual) Monocytes % (Manual) Eosinophils % (Manual) Toxic Granulation Platelet Estimate Hypochromasia (manual) Anisocytosis (manual) Haptoglobin PT INR APTT pO2 VBG pH VBG pCO2 VBG HCO3 VBG Total CO2 VBG O2 Sat (Calc) VBG Base Excess VBG Potassium Sodium Chloride Glucose Lactate FiO2 Potassium Carbon Dioxide Anion Gap BUN Creatinine Est GFR ( Amer) Est GFR (Non-Af Amer) POC Glucose (mg/dL) 115 H Random Glucose Hemoglobin A1c Calcium Phosphorus Magnesium Iron TIBC % Saturation Transferrin Ferritin Total Bilirubin Direct Bilirubin AST ALT Alkaline Phosphatase Total Protein Albumin Globulin Albumin/Globulin Ratio Triglycerides Cholesterol LDL Cholesterol Direct HDL Cholesterol Amylase Lipase Alpha Fetoprotein Thyroxine (T4) Total T3 TSH 3rd Generation Venous Blood Potassium Urine Color Urine Clarity Urine pH Ur Specific [place] Urine Protein Urine Glucose (UA) Urine Ketones Urine Blood Urine Nitrate Urine Bilirubin Urine Urobilinogen Ur Leukocyte Esterase Urine RBC (Auto) Urine Microscopic WBC Ur Squamous Epith Cells Urine Bacteria DIAMOND 6 Profile Negative Anti-Mitochondrial Ab Negative Hepatitis A IgM Ab Hepatitis A Ab Total Hep Bs Antigen Hep Bs Antibody Hep B Core IgM Ab Hepatitis C Antibody Blood Type Blood Type Confirm Antibody Screen BBK History Checked 09/30/18 09/30/18 09/30/18 13:00 13:30 13:30 WBC RBC Hgb Hct MCV MCH MCHC RDW Plt Count MPV Neut % (Auto) Lymph % (Auto) [place] % (Auto) Eos % (Auto) Baso % (Auto) Neut # (Auto) Lymph # (Auto) [place] # (Auto) Eos # (Auto) Baso # (Auto) Neutrophils % (Manual) Band Neutrophils % Lymphocytes % (Manual) Monocytes % (Manual) Eosinophils % (Manual) Toxic Granulation Platelet Estimate Hypochromasia (manual) Anisocytosis (manual) Haptoglobin PT INR APTT pO2 VBG pH VBG pCO2 VBG HCO3 VBG Total CO2 VBG O2 Sat (Calc) VBG Base Excess VBG Potassium Sodium Chloride Glucose Lactate FiO2 Potassium Carbon Dioxide Anion Gap BUN Creatinine Est GFR ( Amer) Est GFR (Non-Af Amer) POC Glucose (mg/dL) Random Glucose Hemoglobin A1c Calcium Phosphorus Magnesium Iron TIBC % Saturation Transferrin Ferritin Total Bilirubin Direct Bilirubin AST ALT Alkaline Phosphatase Total Protein Albumin Globulin Albumin/Globulin Ratio Triglycerides Cholesterol LDL Cholesterol Direct HDL Cholesterol Amylase Lipase Alpha Fetoprotein 1.8 Thyroxine (T4) Total T3 TSH 3rd Generation Venous Blood Potassium Urine Color Urine Clarity Urine pH Ur Specific [place] Urine Protein Urine Glucose (UA) Urine Ketones Urine Blood Urine Nitrate Urine Bilirubin Urine Urobilinogen Ur Leukocyte Esterase Urine RBC (Auto) Urine Microscopic WBC Ur Squamous Epith Cells Urine Bacteria DIAMOND 6 Profile Anti-Mitochondrial Ab Hepatitis A IgM Ab Negative Negative Hepatitis A Ab Total Antibody pos Hep Bs Antigen Negative Hep Bs Antibody Hep B Core IgM Ab Negative Negative Hepatitis C Antibody Negative Negative Blood Type Blood Type Confirm Antibody Screen BBK History Checked 09/30/18 09/30/18 09/30/18 13:30 13:30 16:13 WBC RBC Hgb Hct MCV MCH MCHC RDW Plt Count MPV Neut % (Auto) Lymph % (Auto) [place] % (Auto) Eos % (Auto) Baso % (Auto) Neut # (Auto) Lymph # (Auto) [place] # (Auto) Eos # (Auto) Baso # (Auto) Neutrophils % (Manual) Band Neutrophils % Lymphocytes % (Manual) Monocytes % (Manual) Eosinophils % (Manual) Toxic Granulation Platelet Estimate Hypochromasia (manual) Anisocytosis (manual) Haptoglobin PT INR APTT pO2 VBG pH VBG pCO2 VBG HCO3 VBG Total CO2 VBG O2 Sat (Calc) VBG Base Excess VBG Potassium Sodium 141 Chloride 106 Glucose Lactate FiO2 Potassium 3.7 Carbon Dioxide 26 Anion Gap 13 BUN 24 H Creatinine 1.1 Est GFR ( Amer) 58 Est GFR (Non-Af Amer) 48 POC Glucose (mg/dL) 120 H Random Glucose 106 H Hemoglobin A1c Calcium 8.6 Phosphorus Magnesium 1.9 Iron TIBC % Saturation Transferrin Ferritin Total Bilirubin 3.5 H Direct Bilirubin 2.8 H AST 558 H ALT 447 H Alkaline Phosphatase 112 Total Protein 6.1 L Albumin 2.9 L Globulin 3.1 Albumin/Globulin Ratio 0.9 L Triglycerides Cholesterol LDL Cholesterol Direct HDL Cholesterol Amylase Lipase Alpha Fetoprotein Thyroxine (T4) Total T3 TSH 3rd Generation Venous Blood Potassium Urine Color Urine Clarity Urine pH Ur Specific [place] Urine Protein Urine Glucose (UA) Urine Ketones Urine Blood Urine Nitrate Urine Bilirubin Urine Urobilinogen Ur Leukocyte Esterase Urine RBC (Auto) Urine Microscopic WBC Ur Squamous Epith Cells Urine Bacteria DIAMOND 6 Profile Anti-Mitochondrial Ab Hepatitis A IgM Ab Hepatitis A Ab Total Hep Bs Antigen Hep Bs Antibody Positive Hep B Core IgM Ab Hepatitis C Antibody Blood Type Blood Type Confirm Antibody Screen BBK History Checked 09/30/18 10/01/18 10/01/18 21:09 05:08 06:15 WBC 6.6 RBC 3.18 L Hgb 9.6 L Hct 28.9 L MCV 91.1 MCH 30.2 MCHC 33.2 RDW 14.2 Plt Count 93 L MPV 9.4 Neut % (Auto) 71.4 Lymph % (Auto) 18.0 L [place] % (Auto) 8.5 Eos % (Auto) 1.7 Baso % (Auto) 0.4 Neut # (Auto) 4.7 Lymph # (Auto) 1.2 [place] # (Auto) 0.6 Eos # (Auto) 0.1 Baso # (Auto) 0.0 Neutrophils % (Manual) Band Neutrophils % Lymphocytes % (Manual) Monocytes % (Manual) Eosinophils % (Manual) Toxic Granulation Platelet Estimate Hypochromasia (manual) Anisocytosis (manual) Haptoglobin PT INR APTT pO2 VBG pH VBG pCO2 VBG HCO3 VBG Total CO2 VBG O2 Sat (Calc) VBG Base Excess VBG Potassium Sodium Chloride Glucose Lactate FiO2 Potassium Carbon Dioxide Anion Gap BUN Creatinine Est GFR ( Amer) Est GFR (Non-Af Amer) POC Glucose (mg/dL) 266 H 100 Random Glucose Hemoglobin A1c Calcium Phosphorus Magnesium Iron TIBC % Saturation Transferrin Ferritin Total Bilirubin Direct Bilirubin AST ALT Alkaline Phosphatase Total Protein Albumin Globulin Albumin/Globulin Ratio Triglycerides Cholesterol LDL Cholesterol Direct HDL Cholesterol Amylase Lipase Alpha Fetoprotein Thyroxine (T4) Total T3 TSH 3rd Generation Venous Blood Potassium Urine Color Urine Clarity Urine pH Ur Specific [place] Urine Protein Urine Glucose (UA) Urine Ketones Urine Blood Urine Nitrate Urine Bilirubin Urine Urobilinogen Ur Leukocyte Esterase Urine RBC (Auto) Urine Microscopic WBC Ur Squamous Epith Cells Urine Bacteria DIAMOND 6 Profile Anti-Mitochondrial Ab Hepatitis A IgM Ab Hepatitis A Ab Total Hep Bs Antigen Hep Bs Antibody Hep B Core IgM Ab Hepatitis C Antibody Blood Type Blood Type Confirm Antibody Screen BBK History Checked 10/01/18 10/01/18 10/01/18 06:15 06:15 09:15 WBC RBC Hgb Hct MCV MCH MCHC RDW Plt Count MPV Neut % (Auto) Lymph % (Auto) [place] % (Auto) Eos % (Auto) Baso % (Auto) Neut # (Auto) Lymph # (Auto) [place] # (Auto) Eos # (Auto) Baso # (Auto) Neutrophils % (Manual) Band Neutrophils % Lymphocytes % (Manual) Monocytes % (Manual) Eosinophils % (Manual) Toxic Granulation Platelet Estimate Hypochromasia (manual) Anisocytosis (manual) Haptoglobin PT 18.9 H INR 1.7 APTT 82.7 H pO2 VBG pH VBG pCO2 VBG HCO3 VBG Total CO2 VBG O2 Sat (Calc) VBG Base Excess VBG Potassium Sodium 139 Chloride 110 H Glucose Lactate FiO2 Potassium 3.9 Carbon Dioxide 21 L Anion Gap 12 BUN 18 H Creatinine 1.0 Est GFR ( Amer) > 60 Est GFR (Non-Af Amer) 53 POC Glucose (mg/dL) Random Glucose 103 Hemoglobin A1c Calcium 8.2 L Phosphorus 2.8 Magnesium 1.9 Iron TIBC % Saturation Transferrin Ferritin Total Bilirubin 3.2 H 3.2 H Direct Bilirubin 2.6 H AST 262 H D 263 H ALT 312 H D 315 H Alkaline Phosphatase 104 100 Total Protein 5.8 L 5.6 L Albumin 2.7 L 2.7 L Globulin 3.1 2.9 Albumin/Globulin Ratio 0.9 L 0.9 L Triglycerides Cholesterol LDL Cholesterol Direct HDL Cholesterol Amylase Lipase Alpha Fetoprotein Thyroxine (T4) Total T3 TSH 3rd Generation Venous Blood Potassium Urine Color Urine Clarity Urine pH Ur Specific [place] Urine Protein Urine Glucose (UA) Urine Ketones Urine Blood Urine Nitrate Urine Bilirubin Urine Urobilinogen Ur Leukocyte Esterase Urine RBC (Auto) Urine Microscopic WBC Ur Squamous Epith Cells Urine Bacteria DIAMOND 6 Profile Anti-Mitochondrial Ab Hepatitis A IgM Ab Hepatitis A Ab Total Hep Bs Antigen Hep Bs Antibody Hep B Core IgM Ab Hepatitis C Antibody Blood Type Blood Type Confirm Antibody Screen BBK History Checked 10/01/18 10/01/18 10/01/18 10:00 10:00 10:00 WBC RBC Hgb Hct MCV MCH MCHC RDW Plt Count MPV Neut % (Auto) Lymph % (Auto) [place] % (Auto) Eos % (Auto) Baso % (Auto) Neut # (Auto) Lymph # (Auto) [place] # (Auto) Eos # (Auto) Baso # (Auto) Neutrophils % (Manual) Band Neutrophils % Lymphocytes % (Manual) Monocytes % (Manual) Eosinophils % (Manual) Toxic Granulation Platelet Estimate Hypochromasia (manual) Anisocytosis (manual) Haptoglobin 150.9 PT INR APTT pO2 VBG pH VBG pCO2 VBG HCO3 VBG Total CO2 VBG O2 Sat (Calc) VBG Base Excess VBG Potassium Sodium Chloride Glucose Lactate FiO2 Potassium Carbon Dioxide Anion Gap BUN Creatinine Est GFR ( Amer) Est GFR (Non-Af Amer) POC Glucose (mg/dL) Random Glucose Hemoglobin A1c Calcium Phosphorus Magnesium Iron 51 TIBC 267 % Saturation 19 L Transferrin 172.77 L Ferritin 620.0 H Total Bilirubin Direct Bilirubin AST ALT Alkaline Phosphatase Total Protein Albumin Globulin Albumin/Globulin Ratio Triglycerides Cholesterol LDL Cholesterol Direct HDL Cholesterol Amylase Lipase Alpha Fetoprotein Thyroxine (T4) Total T3 TSH 3rd Generation Venous Blood Potassium Urine Color Urine Clarity Urine pH Ur Specific [place] Urine Protein Urine Glucose (UA) Urine Ketones Urine Blood Urine Nitrate Urine Bilirubin Urine Urobilinogen Ur Leukocyte Esterase Urine RBC (Auto) Urine Microscopic WBC Ur Squamous Epith Cells Urine Bacteria DIAMOND 6 Profile Anti-Mitochondrial Ab Hepatitis A IgM Ab Hepatitis A Ab Total Hep Bs Antigen Hep Bs Antibody Hep B Core IgM Ab Hepatitis C Antibody Blood Type Blood Type Confirm Antibody Screen BBK History Checked 10/01/18 10/01/18 11:00 15:38 WBC RBC Hgb Hct MCV MCH MCHC RDW Plt Count MPV Neut % (Auto) Lymph % (Auto) [place] % (Auto) Eos % (Auto) Baso % (Auto) Neut # (Auto) Lymph # (Auto) [place] # (Auto) Eos # (Auto) Baso # (Auto) Neutrophils % (Manual) Band Neutrophils % Lymphocytes % (Manual) Monocytes % (Manual) Eosinophils % (Manual) Toxic Granulation Platelet Estimate Hypochromasia (manual) Anisocytosis (manual) Haptoglobin PT INR APTT pO2 VBG pH VBG pCO2 VBG HCO3 VBG Total CO2 VBG O2 Sat (Calc) VBG Base Excess VBG Potassium Sodium Chloride Glucose Lactate FiO2 Potassium Carbon Dioxide Anion Gap BUN Creatinine Est GFR ( Amer) Est GFR (Non-Af Amer) POC Glucose (mg/dL) 119 H 166 H Random Glucose Hemoglobin A1c Calcium Phosphorus Magnesium Iron TIBC % Saturation Transferrin Ferritin Total Bilirubin Direct Bilirubin AST ALT Alkaline Phosphatase Total Protein Albumin Globulin Albumin/Globulin Ratio Triglycerides Cholesterol LDL Cholesterol Direct HDL Cholesterol Amylase Lipase Alpha Fetoprotein Thyroxine (T4) Total T3 TSH 3rd Generation Venous Blood Potassium Urine Color Urine Clarity Urine pH Ur Specific [place] Urine Protein Urine Glucose (UA) Urine Ketones Urine Blood Urine Nitrate Urine Bilirubin Urine Urobilinogen Ur Leukocyte Esterase Urine RBC (Auto) Urine Microscopic WBC Ur Squamous Epith Cells Urine Bacteria DIAMOND 6 Profile Anti-Mitochondrial Ab Hepatitis A IgM Ab Hepatitis A Ab Total Hep Bs Antigen Hep Bs Antibody Hep B Core IgM Ab Hepatitis C Antibody Blood Type Blood Type Confirm Antibody Screen BBK History Checked Microbiology 09/29/18 22:11 Urine Random Urine Culture - Final No Growth (<1,000 CFU/ML) 09/29/18 20:25 Blood Blood Culture - Preliminary NO GROWTH AFTER 24 HOURS 09/29/18 19:55 Blood Blood Culture - Preliminary NO GROWTH AFTER 24 HOURS Assessment and Plan (1) Cholecystitis Status: Acute (2) Diabetes type 2, uncontrolled Status: Chronic (3) Elevated liver enzymes Status: Acute (4) UTI (urinary tract infection) Status: Acute - Assessment and Plan (Free Text) Assessment: A/P- 82 year old female with multiple medical conditions including DM II, Hypothyroidism, HTN admitted with lethargy, fatigue found to have high fever and elavated LFTs and cholecystitis and possibly right Pyelonephritis as per CT report. clinically better today. afebrile past 2 days. normal wbc count.blood cx- neg x 2 urine cx- neg hepatitis panel- negative plan- continue with IV zosyn day #2 for choledocholithiais. awaits cholecystectomy.
[2018-10-01 09:40] LABS: ALB/GLOB RATIO 0.9 (1.0-2.1); ALBUMIN 2.7 g/dL (3.5-5.0); BILIRUBIN,DIRECT 2.6 mg/ml (0.0-0.4)
--- NOTE | 2018-10-01 10:13 | CP.PCM.PN ---
Subjective - Date & Time of Evaluation Date of Evaluation: 10/01/18 Time of Evaluation: 10:11 - Subjective Subjective: pt seen and examined at bedside, resting in chair comfortably. Pt reports minimal abdominal discomfort. Pt currently NPO, she reports dark colored urine. Laparoscopic cholecystectomy - liver enzymes, Tbili remain elevated. gen: awake, alert, NAD HEENT: NC/AT, EOMI, PERRLA abd: soft, ND, +epigastric/RUQ tenderness on moderate palpation 82yo F with acute cholecystitis -pain control -ok for clears -repeat LFTs in AM -cont IV abx -possible lap priscilla 10/02 once LFTs trend down Objective - Vital Signs/Intake and Output Vital Signs (last 24 hours): Temp Pulse Resp BP Pulse Ox 99.4 F 89 20 124/60 93 L 10/01/18 08:11 10/01/18 08:11 10/01/18 08:11 10/01/18 08:11 10/01/18 08:11 - Medications Medications: Current Medications Carvedilol (Coreg) 12.5 mg PO Q12 [facility] Dextrose (Dextrose 50% Inj) 0 ml IV STAT PRN; Protocol PRN Reason: Hypoglycemia Protocol Dextrose (Glutose 15) 0 gm PO ONCE PRN; Protocol PRN Reason: Hypoglycemia Protocol Gabapentin (Neurontin) 300 mg PO Q8 [facility] Last Admin: 10/01/18 08:44 Dose: Not Given Glucagon (Glucagen Diagnostic Kit) 0 mg IM STAT PRN; Protocol PRN Reason: Hypoglycemia Protocol Piperacillin Sod/Tazobactam (Sod 3.375 gm/ Sodium Chloride) 100 mls @ 100 mls/ hr IVPB Q6 [facility]; Protocol Last Admin: 10/01/18 09:00 Dose: 100 mls/hr Sodium Chloride (Sodium Chloride 0.9%) 1,000 mls @ 100 mls/hr IV .Q10H [facility] Stop: 10/01/18 13:42 Last Admin: 09/30/18 23:55 Dose: Not Given Insulin Human Regular (Humulin R) 0 units SC ACHS [facility]; Protocol Last Admin: 10/01/18 08:44 Dose: Not Given Insulin Lispro Protam/Lispro Human (Humalog Mix 75/25) 20 units SC ACB [facility] Last Admin: 10/01/18 08:43 Dose: Not Given Levothyroxine Sodium (Synthroid) 88 mcg PO DAILY@0630 [facility] Last Admin: 10/01/18 08:44 Dose: Not Given Morphine Sulfate (Morphine) 1 mg IVP Q4 PRN PRN Reason: Pain, moderate (4-7) Ondansetron HCl (Zofran Inj) 4 mg IVP Q4 PRN PRN Reason: Nausea/Vomiting Pantoprazole Sodium (Protonix Inj) 40 mg IVP DAILY [facility] Last Admin: 10/01/18 09:01 Dose: 40 mg - Labs Labs: 10/01/18 06:15 10/01/18 06:15 PT 18.9 Seconds (9.8-13.1) H 10/01/18 06:15 INR 1.7 10/01/18 06:15 APTT 82.7 Seconds (25.6-37.1) H 10/01/18 06:15
[2018-10-01] MEDS ORDERED: Phytonadione 1 mg/0.5 ml Inj (Neonatal) IM ONE (11:31)
[2018-10-01 11:53] LABS: IRON 51 ug/dL (37-170)
[2018-10-01] MEDS ORDERED: Phytonadione 10 mg/ml Inj (Adult) SC ONE (12:00)
[2018-10-01 12:03] LABS: % IRON SATURATION 19 % (20-55); TOTAL IRON BINDING CAPACITY 267 ug/dL (250-450)
--- NOTE | 2018-10-01 12:07 | CP.PCM.CON ---
History of Present Illness - History of Present Illness History of Present Illness: This is a 82 yrs old female who was admitted with c/o fever, RUQ pain, and nausea . She was found to have cholecystitis . Her LFT were slightly elevated and she was to be cleared medically. However her PT is elevated and after the heparin the PTT is elevated as well. She has never had bleeding problems before, not during her periods and not during childbirth. No c/o ecchymosis or spontaneous bleeding. She has been given vit k, however it will take 36-48 hrs before a response. Her symptoms are much better now. P/H htn and DM. Past Patient History - Past Medical History & Family History Past Medical History?: Yes - Past Social History Alcohol: None Drugs: Denies Home Situation {Lives}: With Family - CARDIAC Hx Hypertension: Yes - PULMONARY Hx Respiratory Disorders: No - NEUROLOGICAL Hx Neurological Disorder: Yes - HEENT Hx HEENT Problems: No - RENAL Hx Chronic Kidney Disease: No - ENDOCRINE/METABOLIC Hx Diabetes Mellitus Type 2: Yes Hx Hypothyroidism: Yes - HEMATOLOGICAL/ONCOLOGICAL Hx Blood Disorders: No - INTEGUMENTARY Hx Dermatological Problems: No - MUSCULOSKELETAL/RHEUMATOLOGICAL Hx Arthritis: Yes - PSYCHIATRIC Hx Substance Use: No - SURGICAL HISTORY Hx Surgeries: Yes Hx Musculoskeletal Surgery: Yes (left ankle surgery 2013, left leg surgery in 1993) Hx Orthopedic Surgery: Yes (bilateral shoulder surgery) Other/Comment: left leg sx (tib-fib fx 1989) - ANESTHESIA Hx Anesthesia: Yes Hx Anesthesia Reactions: No Hx Malignant Hyperthermia: No Has any member of the family had a problem w/ anesthesia?: Yes Meds Allergies/Adverse Reactions: Allergies Allergy/AdvReac Type Severity Reaction Status Date / Time Sulfa (Sulfonamide Allergy RASH Verified 09/29/18 18:52 Antibiotics) - Medications Medications: Current Medications Carvedilol (Coreg) 12.5 mg PO Q12 [facility] Dextrose (Dextrose 50% Inj) 0 ml IV STAT PRN; Protocol PRN Reason: Hypoglycemia Protocol Dextrose (Glutose 15) 0 gm PO ONCE PRN; Protocol PRN Reason: Hypoglycemia Protocol Gabapentin (Neurontin) 300 mg PO Q8 [facility] Last Admin: 10/01/18 08:44 Dose: Not Given Glucagon (Glucagen Diagnostic Kit) 0 mg IM STAT PRN; Protocol PRN Reason: Hypoglycemia Protocol Piperacillin Sod/Tazobactam (Sod 3.375 gm/ Sodium Chloride) 100 mls @ 100 mls/hr IVPB Q6 [facility]; Protocol Last Admin: 10/01/18 09:00 Dose: 100 mls/hr Sodium Chloride (Sodium Chloride 0.9%) 1,000 mls @ 100 mls/hr IV .Q10H [facility] Stop: 10/01/18 13:42 Last Admin: 09/30/18 23:55 Dose: Not Given Insulin Human Regular (Humulin R) 0 units SC ACHS [facility]; Protocol Last Admin: 10/01/18 08:44 Dose: Not Given Insulin Lispro Protam/Lispro Human (Humalog Mix 75/25) 20 units SC ACB [facility] Last Admin: 10/01/18 08:43 Dose: Not Given Levothyroxine Sodium (Synthroid) 88 mcg PO DAILY@0630 [facility] Last Admin: 10/01/18 08:44 Dose: Not Given Morphine Sulfate (Morphine) 1 mg IVP Q4 PRN PRN Reason: Pain, moderate (4-7) Ondansetron HCl (Zofran Inj) 4 mg IVP Q4 PRN PRN Reason: Nausea/Vomiting Pantoprazole Sodium (Protonix Inj) 40 mg IVP DAILY [facility] Last Admin: 10/01/18 09:01 Dose: 40 mg Phytonadione (Vitamin K Inj) 10 mg SC ONCE ONE Stop: 10/01/18 12:01 Physical Exam - Additional Findings Additional findings: Physical exam; Alert,well oriented, in no acute dietress neck; supple, no adenopathy Chest; Clear,no rales or rhonchi Heart; RSR, no murmur Abd;Soft,some tenderness in the RUQ., no h/s megaly. Results - Vital Signs Recent Vital Signs: Last Vital Signs Temp 99.4 F 10/01/18 08:11 Pulse 89 10/01/18 08:11 Resp 20 10/01/18 08:11 BP 124/60 10/01/18 08:11 Pulse Ox 93 L 10/01/18 08:11 - Labs Result Diagrams: 10/01/18 06:15 10/01/18 06:15 Labs: Laboratory Results - last 24 hr 09/30/18 09/30/18 09/30/18 07:05 09:00 13:00 WBC RBC Hgb Hct MCV MCH MCHC RDW Plt Count MPV Neut % (Auto) Lymph % (Auto) [place] % (Auto) Eos % (Auto) Baso % (Auto) Neut # (Auto) Lymph # (Auto) [place] # (Auto) Eos # (Auto) Baso # (Auto) PT INR APTT Sodium Potassium Chloride Carbon Dioxide Anion Gap BUN Creatinine Est GFR ( Amer) Est GFR (Non-Af Amer) POC Glucose (mg/dL) Random Glucose Hemoglobin A1c 8.2 H Calcium Phosphorus Magnesium Ferritin Total Bilirubin Direct Bilirubin AST ALT Alkaline Phosphatase Total Protein Albumin Globulin Albumin/Globulin Ratio Alpha Fetoprotein 1.8 Hepatitis A IgM Ab Hepatitis A Ab Total Hep Bs Antigen Negative Hep Bs Antibody Hep B Core IgM Ab Hepatitis C Antibody 09/30/18 09/30/18 09/30/18 13:30 13:30 13:30 WBC RBC Hgb Hct MCV MCH MCHC RDW Plt Count MPV Neut % (Auto) Lymph % (Auto) [place] % (Auto) Eos % (Auto) Baso % (Auto) Neut # (Auto) Lymph # (Auto) [place] # (Auto) Eos # (Auto) Baso # (Auto) PT INR APTT Sodium Potassium Chloride Carbon Dioxide Anion Gap BUN Creatinine Est GFR ( Amer) Est GFR (Non-Af Amer) POC Glucose (mg/dL) Random Glucose Hemoglobin A1c Calcium Phosphorus Magnesium Ferritin Total Bilirubin Direct Bilirubin AST ALT Alkaline Phosphatase Total Protein Albumin Globulin Albumin/Globulin Ratio Alpha Fetoprotein Hepatitis A IgM Ab Negative Negative Hepatitis A Ab Total Antibody pos Hep Bs Antigen Negative Hep Bs Antibody Positive Hep B Core IgM Ab Negative Negative Hepatitis C Antibody Negative Negative 09/30/18 09/30/18 09/30/18 13:30 16:13 21:09 WBC RBC Hgb Hct MCV MCH MCHC RDW Plt Count MPV Neut % (Auto) Lymph % (Auto) [place] % (Auto) Eos % (Auto) Baso % (Auto) Neut # (Auto) Lymph # (Auto) [place] # (Auto) Eos # (Auto) Baso # (Auto) PT INR APTT Sodium 141 Potassium 3.7 Chloride 106 Carbon Dioxide 26 Anion Gap 13 BUN 24 H Creatinine 1.1 Est GFR ( Amer) 58 Est GFR (Non-Af Amer) 48 POC Glucose (mg/dL) 120 H 266 H Random Glucose 106 H Hemoglobin A1c Calcium 8.6 Phosphorus Magnesium 1.9 Ferritin Total Bilirubin 3.5 H Direct Bilirubin 2.8 H AST 558 H ALT 447 H Alkaline Phosphatase 112 Total Protein 6.1 L Albumin 2.9 L Globulin 3.1 Albumin/Globulin Ratio 0.9 L Alpha Fetoprotein Hepatitis A IgM Ab Hepatitis A Ab Total Hep Bs Antigen Hep Bs Antibody Hep B Core IgM Ab Hepatitis C Antibody 10/01/18 10/01/18 10/01/18 05:08 06:15 06:15 WBC 6.6 RBC 3.18 L Hgb 9.6 L Hct 28.9 L MCV 91.1 MCH 30.2 MCHC 33.2 RDW 14.2 Plt Count 93 L MPV 9.4 Neut % (Auto) 71.4 Lymph % (Auto) 18.0 L [place] % (Auto) 8.5 Eos % (Auto) 1.7 Baso % (Auto) 0.4 Neut # (Auto) 4.7 Lymph # (Auto) 1.2 [place] # (Auto) 0.6 Eos # (Auto) 0.1 Baso # (Auto) 0.0 PT INR APTT Sodium 139 Potassium 3.9 Chloride 110 H Carbon Dioxide 21 L Anion Gap 12 BUN 18 H Creatinine 1.0 Est GFR ( Amer) > 60 Est GFR (Non-Af Amer) 53 POC Glucose (mg/dL) 100 Random Glucose 103 Hemoglobin A1c Calcium 8.2 L Phosphorus 2.8 Magnesium 1.9 Ferritin Total Bilirubin 3.2 H Direct Bilirubin AST 262 H D ALT 312 H D Alkaline Phosphatase 104 Total Protein 5.8 L Albumin 2.7 L Globulin 3.1 Albumin/Globulin Ratio 0.9 L Alpha Fetoprotein Hepatitis A IgM Ab Hepatitis A Ab Total Hep Bs Antigen Hep Bs Antibody Hep B Core IgM Ab Hepatitis C Antibody 10/01/18 10/01/18 10/01/18 06:15 09:15 10:00 WBC RBC Hgb Hct MCV MCH MCHC RDW Plt Count MPV Neut % (Auto) Lymph % (Auto) [place] % (Auto) Eos % (Auto) Baso % (Auto) Neut # (Auto) Lymph # (Auto) [place] # (Auto) Eos # (Auto) Baso # (Auto) PT 18.9 H INR 1.7 APTT 82.7 H Sodium Potassium Chloride Carbon Dioxide Anion Gap BUN Creatinine Est GFR ( Amer) Est GFR (Non-Af Amer) POC Glucose (mg/dL) Random Glucose Hemoglobin A1c Calcium Phosphorus Magnesium Ferritin 620.0 H Total Bilirubin 3.2 H Direct Bilirubin 2.6 H AST 263 H ALT 315 H Alkaline Phosphatase 100 Total Protein 5.6 L Albumin 2.7 L Globulin 2.9 Albumin/Globulin Ratio 0.9 L Alpha Fetoprotein Hepatitis A IgM Ab Hepatitis A Ab Total Hep Bs Antigen Hep Bs Antibody Hep B Core IgM Ab Hepatitis C Antibody 10/01/18 11:00 WBC RBC Hgb Hct MCV MCH MCHC RDW Plt Count MPV Neut % (Auto) Lymph % (Auto) [place] % (Auto) Eos % (Auto) Baso % (Auto) Neut # (Auto) Lymph # (Auto) [place] # (Auto) Eos # (Auto) Baso # (Auto) PT INR APTT Sodium Potassium Chloride Carbon Dioxide Anion Gap BUN Creatinine Est GFR ( Amer) Est GFR (Non-Af Amer) POC Glucose (mg/dL) 119 H Random Glucose Hemoglobin A1c Calcium Phosphorus Magnesium Ferritin Total Bilirubin Direct Bilirubin AST ALT Alkaline Phosphatase Total Protein Albumin Globulin Albumin/Globulin Ratio Alpha Fetoprotein Hepatitis A IgM Ab Hepatitis A Ab Total Hep Bs Antigen Hep Bs Antibody Hep B Core IgM Ab Hepatitis C Antibody Assessment & Plan - Assessment and Plan (Free Text) Assessment: [id number]; Elevated PTT secondary to heparin. Elevated PT secondary to acute liver dysfunction probably due to acute cholycystitis - Date & Time Date: 10/01/18 Time: 12:16
[2018-10-01] MEDS: Sodium Chloride 0.9% 1,000 ML IV SCH (13:34)
[2018-10-01 16:30] LABS: TRANSFERRIN 172.77 mg/dL (206-381)
--- NOTE | 2018-10-01 19:47 | CP.PCM.PN ---
Subjective - Date & Time of Evaluation Date of Evaluation: 10/01/18 Time of Evaluation: 19:50 - Subjective Subjective: Above noted and appreciated Patient general condition improving on present rx. Acute elevation of PT/PTT. She received 10 mg of vit K. Symptomatic cholecystitis will need surgical intervention when coagulation normal and LFT improving. Continue present rx will follow. Objective - Vital Signs/Intake and Output Vital Signs (last 24 hours): Temp Pulse Resp BP Pulse Ox 98.2 F 67 18 112/59 L 96 10/01/18 16:07 10/01/18 16:07 10/01/18 16:07 10/01/18 16:07 10/01/18 16:07 - Medications Medications: Current Medications Carvedilol (Coreg) 12.5 mg PO Q12 [facility] Last Admin: 10/01/18 13:31 Dose: 12.5 mg Dextrose (Dextrose 50% Inj) 0 ml IV STAT PRN; Protocol PRN Reason: Hypoglycemia Protocol Dextrose (Glutose 15) 0 gm PO ONCE PRN; Protocol PRN Reason: Hypoglycemia Protocol Gabapentin (Neurontin) 300 mg PO Q8 [facility] Last Admin: 10/01/18 16:07 Dose: 300 mg Glucagon (Glucagen Diagnostic Kit) 0 mg IM STAT PRN; Protocol PRN Reason: Hypoglycemia Protocol Piperacillin Sod/Tazobactam (Sod 3.375 gm/ Sodium Chloride) 100 mls @ 100 mls/hr IVPB Q6 [facility]; Protocol Last Admin: 10/01/18 16:05 Dose: 100 mls/hr Insulin Human Regular (Humulin R) 0 units SC ACHS [facility]; Protocol Last Admin: 10/01/18 16:08 Dose: 1 unit Insulin Lispro Protam/Lispro Human (Humalog Mix 75/25) 20 units SC ACB [facility] Last Admin: 10/01/18 08:43 Dose: Not Given Levothyroxine Sodium (Synthroid) 88 mcg PO DAILY@0630 [facility] Last Admin: 10/01/18 08:44 Dose: Not Given Morphine Sulfate (Morphine) 1 mg IVP Q4 PRN PRN Reason: Pain, moderate (4-7) Ondansetron HCl (Zofran Inj) 4 mg IVP Q4 PRN PRN Reason: Nausea/Vomiting Pantoprazole Sodium (Protonix Inj) 40 mg IVP DAILY [facility] Last Admin: 10/01/18 09:01 Dose: 40 mg - Labs Labs: 10/01/18 06:15 10/01/18 06:15 PT 18.9 Seconds (9.8-13.1) H 10/01/18 06:15 INR 1.7 10/01/18 06:15 APTT 82.7 Seconds (25.6-37.1) H 10/01/18 06:15 - Constitutional Appears: Non-toxic, Chronically Ill - Head Exam Head Exam: ATRAUMATIC, NORMAL INSPECTION, NORMOCEPHALIC - Eye Exam Eye Exam: Normal appearance - ENT Exam ENT Exam: Normal Exam - Neck Exam Neck Exam: Full ROM - Respiratory Exam Respiratory Exam: Clear to Ausculation Bilateral - Cardiovascular Exam Cardiovascular Exam: REGULAR RHYTHM, +S1, +S2 - GI/Abdominal Exam GI & Abdominal Exam: Tenderness - Extremities Exam Extremities Exam: Normal Inspection - Neurological Exam Neurological Exam: Alert, Awake, Oriented x3 - Psychiatric Exam Psychiatric exam: Normal Mood - Skin Skin Exam: Pallor Assessment and Plan (1) Cholelithiasis Status: Acute (2) Cholangitis Status: Suspected (3) Cholecystitis Status: Acute (4) Diabetes type 2, uncontrolled Status: Chronic (5) Elevated liver enzymes Status: Acute (6) Near syncope Status: Acute (7) Hypertension Status: Chronic (8) Hypothyroidism Status: Chronic (9) Pyelonephritis Status: Acute
[2018-10-02] MEDS: Piperacillin/Tazobact 3.375 GM in Sodium Chloride 0.9% 100 ML IVPB SCH ×4 (04:06→21:17)
[2018-10-02 06:11] LABS: HAV AB (IGM) Nonreactive (Nonreactive)
[2018-10-02 07:23] LABS: BASO % 0.5 % (0.0-2.0); EOS # 0.1 K/uL (0.0-0.7); EOS % 1.9 % (0.0-4.0); HEMOGLOBIN 10.5 g/dL (12.0-16.0); LYMPH # 1.3 K/uL (1.0-4.3); MEAN CELL VOLUME 90.4 fl (81.0-99.0); MEAN CORPUSCULAR HEMOGLOBIN 30.4 pg (27.0-31.0); MEAN CORPUSCULAR HGB CONC 33.6 g/dL (33.0-37.0); MEAN PLATELET VOLUME 9.2 fl (7.2-11.7); MONO # 0.5 K/uL (0.0-0.8); MONO % 7.6 % (0.0-10.0); NEUT # 4.2 K/uL (1.8-7.0); RBC 3.45 Mil/uL (3.80-5.20); RED CELL DISTRIBUTION WIDTH 14.2 % (11.5-14.5); WHITE BLOOD COUNT 6.1 K/uL (4.8-10.8)
[2018-10-02 07:38] LABS: ALB/GLOB RATIO 0.9 (1.0-2.1); ALBUMIN 3.2 g/dL (3.5-5.0); CALCIUM 8.8 mg/dL (8.4-10.2)
[2018-10-02] MEDS: Insulin Lispro Mix 75/25 100 units/ml (HumaLog) 10ml SC SCH (09:12)
[2018-10-02] MEDS: Insulin Regular 100 units/ml SC SCH ×2 (09:12→22:00)
[2018-10-02] MEDS: Levothyroxine 88 MCG TAB PO SCH (09:13)
--- NOTE | 2018-10-02 09:22 | CP.PCM.PN ---
Subjective - Date & Time of Evaluation Date of Evaluation: 10/02/18 Time of Evaluation: 09:21 - Subjective Subjective: Pt was given 1 dose of vit K 36 hrs ago. will give 2 units FFP today PT/PTT tomorrow. Objective - Vital Signs/Intake and Output Vital Signs (last 24 hours): Temp Pulse Resp BP Pulse Ox 97.7 F 70 20 146/74 95 10/02/18 08:13 10/02/18 09:11 10/02/18 08:13 10/02/18 09:11 10/02/18 08:13 - Medications Medications: Current Medications Carvedilol (Coreg) 12.5 mg PO Q12 [facility] Last Admin: 10/02/18 09:11 Dose: 12.5 mg Dextrose (Dextrose 50% Inj) 0 ml IV STAT PRN; Protocol PRN Reason: Hypoglycemia Protocol Dextrose (Glutose 15) 0 gm PO ONCE PRN; Protocol PRN Reason: Hypoglycemia Protocol Gabapentin (Neurontin) 300 mg PO Q8 [facility] Last Admin: 10/02/18 09:13 Dose: Not Given Glucagon (Glucagen Diagnostic Kit) 0 mg IM STAT PRN; Protocol PRN Reason: Hypoglycemia Protocol Piperacillin Sod/Tazobactam (Sod 3.375 gm/ Sodium Chloride) 100 mls @ 100 mls/hr IVPB Q6 [facility]; Protocol Last Admin: 10/02/18 09:07 Dose: 100 mls/hr Insulin Human Regular (Humulin R) 0 units SC ACHS [facility]; Protocol Last Admin: 10/02/18 09:12 Dose: Not Given Insulin Lispro Protam/Lispro Human (Humalog Mix 75/25) 20 units SC ACB [facility] Last Admin: 10/02/18 09:12 Dose: Not Given Levothyroxine Sodium (Synthroid) 88 mcg PO DAILY@0630 [facility] Last Admin: 10/02/18 09:13 Dose: Not Given Morphine Sulfate (Morphine) 1 mg IVP Q4 PRN PRN Reason: Pain, moderate (4-7) Ondansetron HCl (Zofran Inj) 4 mg IVP Q4 PRN PRN Reason: Nausea/Vomiting Pantoprazole Sodium (Protonix Inj) 40 mg IVP DAILY [facility] Last Admin: 10/02/18 09:11 Dose: 40 mg - Labs Labs: 10/02/18 07:10 10/02/18 07:10 PT 18.9 Seconds (9.8-13.1) H 10/01/18 06:15 INR 1.7 10/01/18 06:15 APTT 82.7 Seconds (25.6-37.1) H 10/01/18 06:15
[2018-10-02 09:42] LABS: INR 1.2
[2018-10-02 09:44] LABS: PARTIAL THROMBOPLASTIN TIME 39.1 Seconds (25.6-37.1)
--- NOTE | 2018-10-02 11:59 | CP.PCM.PN ---
Subjective - Date & Time of Evaluation Date of Evaluation: 10/02/18 Time of Evaluation: 11:57 - Subjective Subjective: pt seen and examined at bedside, no overnight events. Pt is resting comfortably, pt continues to report epigastric/RUQ pain. Pt is passing flatus. Pt remains afebrile, hemodynamically stable. Tbili trending down, platelet count rising. Currently being transfused FFP. gen: awake, alert, NAD HEENT: NC/AT, EOMI, PERRLA no acute respiratory distress abd: soft, ND, +murphys, a/p 82yo F with acute cholecystitis -pain control -mainatane IV fluids -ok for clears -will repeat LFTs, PT/pTT, cbc in am -laparoscopic cholecystectomy pending improvement LFTs, Tbili Objective - Vital Signs/Intake and Output Vital Signs (last 24 hours): Temp Pulse Resp BP Pulse Ox 97.8 F 63 20 132/69 95 10/02/18 11:42 10/02/18 11:42 10/02/18 11:42 10/02/18 11:42 10/02/18 08:13 - Medications Medications: Current Medications Carvedilol (Coreg) 12.[address] [facility] Last Admin: 10/02/18 09:11 Dose: 12.5 mg Dextrose (Dextrose 50% Inj) 0 ml IV STAT PRN; Protocol PRN Reason: Hypoglycemia Protocol Dextrose (Glutose 15) 0 gm PO ONCE PRN; Protocol PRN Reason: Hypoglycemia Protocol Gabapentin (Neurontin) [address] [facility] Last Admin: 10/02/18 09:13 Dose: Not Given Glucagon (Glucagen Diagnostic Kit) 0 mg IM STAT PRN; Protocol PRN Reason: Hypoglycemia Protocol Piperacillin Sod/Tazobactam (Sod 3.375 gm/ Sodium Chloride) 100 mls @ 100 mls/hr IVPB Q6 [facility]; Protocol Last Admin: 10/02/18 09:07 Dose: 100 mls/hr Insulin Human Regular (Humulin R) [address] [facility]; Protocol Last Admin: 10/02/18 09:12 Dose: Not Given Insulin Lispro Protam/Lispro Human (Humalog Mix 75/25) [address] [facility] Last Admin: 10/02/18 09:12 Dose: Not Given Levothyroxine Sodium (Synthroid) 88 mcg PO DAILY@0630 [facility] Last Admin: 10/02/18 09:13 Dose: Not Given Morphine Sulfate (Morphine) 1 mg IVP Q4 PRN PRN Reason: Pain, moderate (4-7) Ondansetron HCl (Zofran Inj) 4 mg IVP Q4 PRN PRN Reason: Nausea/Vomiting Pantoprazole Sodium (Protonix Inj) [address] [facility] Last Admin: 10/02/18 09:11 Dose: 40 mg - Labs Labs: 10/02/18 07:10 10/02/18 07:10 PT 14.0 Seconds (9.8-13.1) H 10/02/18 09:10 INR 1.2 10/02/18 09:10 APTT 39.1 Seconds (25.6-37.1) H 10/02/18 09:10
--- NOTE | 2018-10-02 17:00 | CP.PCM.PN ---
Subjective - Date & Time of Evaluation Date of Evaluation: 10/02/18 Time of Evaluation: 17:01 - Subjective Subjective: Still RUQ tenderness, PT PTT elevated will will transfuse FFP to normalize PT PTT before surgery. Continue IV antbx. NPO from midnight. Objective - Vital Signs/Intake and Output Vital Signs (last 24 hours): Temp Pulse Resp BP Pulse Ox 97.9 F 69 18 150/78 96 10/02/18 16:51 10/02/18 16:51 10/02/18 16:51 10/02/18 16:51 10/02/18 16:51 - Medications Medications: Current Medications Carvedilol (Coreg) 12.5 mg PO Q12 [facility] Last Admin: 10/02/18 09:11 Dose: 12.5 mg Dextrose (Dextrose 50% Inj) 0 ml IV STAT PRN; Protocol PRN Reason: Hypoglycemia Protocol Dextrose (Glutose 15) 0 gm PO ONCE PRN; Protocol PRN Reason: Hypoglycemia Protocol Gabapentin (Neurontin) 300 mg PO Q8 [facility] Last Admin: 10/02/18 09:13 Dose: Not Given Glucagon (Glucagen Diagnostic Kit) 0 mg IM STAT PRN; Protocol PRN Reason: Hypoglycemia Protocol Piperacillin Sod/Tazobactam (Sod 3.375 gm/ Sodium Chloride) 100 mls @ 100 mls /hr IVPB Q6 [facility]; Protocol Last Admin: 10/02/18 09:07 Dose: 100 mls/hr Insulin Human Regular (Humulin R) 0 units SC ACHS [facility]; Protocol Last Admin: 10/02/18 09:12 Dose: Not Given Insulin Lispro Protam/Lispro Human (Humalog Mix 75/25) 20 units SC ACB [facility] Last Admin: 10/02/18 09:12 Dose: Not Given Levothyroxine Sodium (Synthroid) 88 mcg PO DAILY@0630 [facility] Last Admin: 10/02/18 09:13 Dose: Not Given Morphine Sulfate (Morphine) 1 mg IVP Q4 PRN PRN Reason: Pain, moderate (4-7) Ondansetron HCl (Zofran Inj) 4 mg IVP Q4 PRN PRN Reason: Nausea/Vomiting Pantoprazole Sodium (Protonix Inj) 40 mg IVP DAILY [facility] Last Admin: 10/02/18 09:11 Dose: 40 mg - Labs Labs: 10/02/18 07:10 10/02/18 07:10 PT 14.0 Seconds (9.8-13.1) H 10/02/18 09:10 INR 1.2 10/02/18 09:10 APTT 39.1 Seconds (25.6-37.1) H 10/02/18 09:10 - Constitutional Appears: Chronically Ill - Head Exam Head Exam: ATRAUMATIC, NORMAL INSPECTION, NORMOCEPHALIC - Eye Exam Eye Exam: Normal appearance - ENT Exam ENT Exam: Normal Exam - Neck Exam Neck Exam: Full ROM - Respiratory Exam Respiratory Exam: Decreased Breath Sounds - Cardiovascular Exam Cardiovascular Exam: REGULAR RHYTHM, +S1, +S2 - GI/Abdominal Exam GI & Abdominal Exam: Tenderness - Extremities Exam Extremities Exam: Normal Inspection - Neurological Exam Neurological Exam: Alert, Awake, Oriented x3 - Psychiatric Exam Psychiatric exam: Normal Affect - Skin Skin Exam: Pallor Assessment and Plan (1) Cholelithiasis Status: Acute (2) Cholangitis Status: Suspected (3) Cholecystitis Status: Acute (4) Diabetes type 2, uncontrolled Status: Chronic (5) Elevated liver enzymes Status: Acute (6) Near syncope Status: Acute (7) Hypertension Status: Chronic (8) Hypothyroidism Status: Chronic (9) Pyelonephritis Status: Acute
[2018-10-03] MEDS: Sodium Chloride 0.9% 1,000 ML IV SCH ×4 (01:00→21:13)
[2018-10-03] MEDS: Piperacillin/Tazobact 3.375 GM in Sodium Chloride 0.9% 100 ML IVPB SCH ×4 (03:04→21:15)
[2018-10-03 06:25] LABS: BASO % 0.3 % (0.0-2.0); EOS # 0.1 K/uL (0.0-0.7); HEMOGLOBIN 9.9 g/dL (12.0-16.0); LYMPH # 1.4 K/uL (1.0-4.3); LYMPH % 23.8 % (20.0-40.0); MEAN CORPUSCULAR HEMOGLOBIN 30.4 pg (27.0-31.0); MEAN CORPUSCULAR HGB CONC 33.8 g/dL (33.0-37.0); MEAN PLATELET VOLUME 9.3 fl (7.2-11.7); MONO # 0.6 K/uL (0.0-0.8); MONO % 10.6 % (0.0-10.0); NEUT # 3.8 K/uL (1.8-7.0); NEUT % 63.3 % (50.0-75.0); NRBC % 0.1 % (0.0-0.0); RBC 3.26 Mil/uL (3.80-5.20); RED CELL DISTRIBUTION WIDTH 14.2 % (11.5-14.5); WHITE BLOOD COUNT 5.9 K/uL (4.8-10.8)
[2018-10-03] MEDS: Levothyroxine 88 MCG TAB PO SCH (06:30)
[2018-10-03 06:40] LABS: ALBUMIN 3.3 g/dL (3.5-5.0); CALCIUM 8.8 mg/dL (8.4-10.2)
[2018-10-03 06:49] LABS: INR 1.2; PROTHROMBIN TIME 13.6 Seconds (9.8-13.1)
[2018-10-03] MEDS: Insulin Regular 100 units/ml SC SCH ×4 (07:44→22:09)
[2018-10-03] MEDS: Insulin Lispro Mix 75/25 100 units/ml (HumaLog) 10ml SC SCH (07:45)
--- NOTE | 2018-10-03 07:47 | CP.PCM.PN ---
Subjective - Date & Time of Evaluation Date of Evaluation: 10/03/18 Time of Evaluation: 07:45 - Subjective Subjective: After transfusion of 2 units of FFP, pt's pt is 13.5, INR 1.2 and PTT 35. She has no h/o bleeding diathesis and is cleared for surgery form a hematology point of zheng. Objective - Vital Signs/Intake and Output Vital Signs (last 24 hours): Temp Pulse Resp BP Pulse Ox 98.4 F 74 18 122/71 98 10/02/18 23:47 10/02/18 23:47 10/02/18 23:47 10/02/18 23:47 10/02/18 23:47 - Medications Medications: Current Medications Carvedilol (Coreg) 12.5 mg PO Q12 [facility] Last Admin: 10/02/18 20:41 Dose: 12.5 mg Dextrose (Dextrose 50% Inj) 0 ml IV STAT PRN; Protocol PRN Reason: Hypoglycemia Protocol Dextrose (Glutose 15) 0 gm PO ONCE PRN; Protocol PRN Reason: Hypoglycemia Protocol Gabapentin (Neurontin) 300 mg PO Q8 [facility] Last Admin: 10/03/18 01:00 Dose: Not Given Glucagon (Glucagen Diagnostic Kit) 0 mg IM STAT PRN; Protocol PRN Reason: Hypoglycemia Protocol Piperacillin Sod/Tazobactam (Sod 3.375 gm/ Sodium Chloride) 100 mls @ 100 mls/hr IVPB Q6 [facility]; Protocol Last Admin: 10/03/18 03:04 Dose: 100 mls/hr Sodium Chloride (Sodium Chloride 0.9%) 1,000 mls @ 100 mls/hr IV .Q10H [facility] Stop: 10/03/18 20:32 Last Admin: 10/03/18 01:00 Dose: 100 mls/hr Insulin Human Regular (Humulin R) 0 units SC ACHS [facility]; Protocol Last Admin: 10/03/18 07:44 Dose: Not Given Insulin Lispro Protam/Lispro Human (Humalog Mix 75/25) 20 units SC ACB [facility] Last Admin: 10/02/18 09:12 Dose: Not Given Levothyroxine Sodium (Synthroid) 88 mcg PO DAILY@0630 [facility] Last Admin: 10/02/18 09:13 Dose: Not Given Morphine Sulfate (Morphine) 1 mg IVP Q4 PRN PRN Reason: Pain, moderate (4-7) Ondansetron HCl (Zofran Inj) 4 mg IVP Q4 PRN PRN Reason: Nausea/Vomiting Pantoprazole Sodium (Protonix Inj) 40 mg IVP DAILY [facility] Last Admin: 10/02/18 09:11 Dose: 40 mg - Labs Labs: 10/03/18 06:00 10/03/18 06:00 PT 13.6 Seconds (9.8-13.1) H 10/03/18 06:15 INR 1.2 10/03/18 06:15 APTT 35.0 Seconds (25.6-37.1) 10/03/18 06:15
--- NOTE | 2018-10-03 08:57 | CP.PCM.PN ---
<Wilfrido Perez - Last Filed: 10/03/18 09:21> Subjective - Date & Time of Evaluation Date of Evaluation: 10/03/18 Time of Evaluation: 08:58 - Subjective Subjective: General Surgery Note for Dr. Novak Patient seen and examined at bedside. No acute event overnight. Patient tolerating diet, passing flatus and having BMs. Denies fever/chills or nausea/vomiting. Total bilirubin is till elevated at 2.5. Will proceed with procedure when total bilirubin has decreased. Objective - Vital Signs/Intake and Output Vital Signs (last 24 hours): Temp Pulse Resp BP Pulse Ox 98.4 F 63 18 157/79 H 96 10/03/18 08:43 10/03/18 08:43 10/03/18 08:43 10/03/18 08:43 10/03/18 08:43 - Medications Medications: Current Medications Carvedilol (Coreg) 12.5 mg PO Q12 [facility] Last Admin: 10/02/18 20:41 Dose: 12.5 mg Dextrose (Dextrose 50% Inj) 0 ml IV STAT PRN; Protocol PRN Reason: Hypoglycemia Protocol Dextrose (Glutose 15) 0 gm PO ONCE PRN; Protocol PRN Reason: Hypoglycemia Protocol Gabapentin (Neurontin) 300 mg PO Q8 [facility] Last Admin: 10/03/18 01:00 Dose: Not Given Glucagon (Glucagen Diagnostic Kit) 0 mg IM STAT PRN; Protocol PRN Reason: Hypoglycemia Protocol Piperacillin Sod/Tazobactam (Sod 3.375 gm/ Sodium Chloride) 100 mls @ 100 mls/hr IVPB Q6 [facility]; Protocol Last Admin: 10/03/18 03:04 Dose: 100 mls/hr Sodium Chloride (Sodium Chloride 0.9%) 1,000 mls @ 100 mls/hr IV .Q10H [facility] Stop: 10/03/18 20:32 Last Admin: 10/03/18 01:00 Dose: 100 mls/hr Insulin Human Regular (Humulin R) 0 units SC ACHS [facility]; Protocol Last Admin: 10/03/18 07:44 Dose: Not Given Insulin Lispro Protam/Lispro Human (Humalog Mix 75/25) 20 units SC ACB [facility] Last Admin: 10/03/18 07:45 Dose: Not Given Levothyroxine Sodium (Synthroid) 88 mcg PO DAILY@0630 [facility] Last Admin: 10/02/18 09:13 Dose: Not Given Morphine Sulfate (Morphine) 1 mg IVP Q4 PRN PRN Reason: Pain, moderate (4-7) Ondansetron HCl (Zofran Inj) 4 mg IVP Q4 PRN PRN Reason: Nausea/Vomiting Pantoprazole Sodium (Protonix Inj) 40 mg IVP DAILY [facility] Last Admin: 10/02/18 09:11 Dose: 40 mg - Labs Labs: 10/03/18 06:00 10/03/18 06:00 PT 13.6 Seconds (9.8-13.1) H 10/03/18 06:15 INR 1.2 10/03/18 06:15 APTT 35.0 Seconds (25.6-37.1) 10/03/18 06:15 - Constitutional Appears: Non-toxic, No Acute Distress - Head Exam Head Exam: ATRAUMATIC, NORMOCEPHALIC - Eye Exam Eye Exam: EOMI, Normal appearance Pupil Exam: PERRL - ENT Exam ENT Exam: Mucous Membranes Moist - Respiratory Exam Respiratory Exam: NORMAL BREATHING PATTERN - Cardiovascular Exam Cardiovascular Exam: REGULAR RHYTHM - GI/Abdominal Exam GI & Abdominal Exam: Soft, Normal Bowel Sounds. absent: Distended, Firm, Guarding, Rigid, Tenderness, Hernia, Mass, Organomegaly, Rebound - Extremities Exam Extremities Exam: Normal Capillary Refill. absent: Calf Tenderness - Back Exam Back Exam: absent: CVA tenderness (L), CVA tenderness (R) - Neurological Exam Neurological Exam: Alert, Awake, CN II-XII Intact, Oriented x3 - Psychiatric Exam Psychiatric exam: Normal Affect, Normal Mood - Skin Skin Exam: Dry, Intact, Normal Color, Warm Assessment and Plan - Assessment and Plan (Free Text) Assessment: 82F with cholelithiasis, cholecystitis and hyperbilirubinemia Plan: -CLD -Ensure TID -OOB to chair and ambulation -Pain control -Trend LFTs -Total bilirubin still elevated at 2.5 -Will proceed with procedure when total bilirubin has decreased below 2 -Medical management as per primary -Discussed with Dr. Kishore Perez PGY2 <Myron Novak - Last Filed: 10/03/18 11:37> Objective - Vital Signs/Intake and Output Vital Signs (last 24 hours): Temp Pulse Resp BP Pulse Ox 98.4 F 63 18 157/79 H 96 10/03/18 08:43 10/03/18 09:59 10/03/18 08:43 10/03/18 09:59 10/03/18 08:43 - Medications Medications: Current Medications Carvedilol (Coreg) 12.5 mg PO Q12 [facility] Last Admin: 10/03/18 09:59 Dose: 12.5 mg Dextrose (Dextrose 50% Inj) 0 ml IV STAT PRN; Protocol PRN Reason: Hypoglycemia Protocol Dextrose (Glutose 15) 0 gm PO ONCE PRN; Protocol PRN Reason: Hypoglycemia Protocol Gabapentin (Neurontin) 300 mg PO Q8 [facility] Last Admin: 10/03/18 10:00 Dose: Not Given Glucagon (Glucagen Diagnostic Kit) 0 mg IM STAT PRN; Protocol PRN Reason: Hypoglycemia Protocol Piperacillin Sod/Tazobactam (Sod 3.375 gm/ Sodium Chloride) 100 mls @ 100 mls/hr IVPB Q6 [facility]; Protocol Last Admin: 10/03/18 10:00 Dose: 100 mls/hr Sodium Chloride (Sodium Chloride 0.9%) 1,000 mls @ 100 mls/hr IV .Q10H [facility] Stop: 10/03/18 20:32 Last Admin: 10/03/18 09:58 Dose: Not Given Insulin Human Regular (Humulin R) 0 units SC ACHS [facility]; Protocol Last Admin: 10/03/18 11:28 Dose: Not Given Insulin Lispro Protam/Lispro Human (Humalog Mix 75/25) 20 units SC ACB [facility] Last Admin: 10/03/18 07:45 Dose: Not Given Levothyroxine Sodium (Synthroid) 88 mcg PO DAILY@0630 [facility] Last Admin: 10/02/18 09:13 Dose: Not Given Morphine Sulfate (Morphine) 1 mg IVP Q4 PRN PRN Reason: Pain, moderate (4-7) Ondansetron HCl (Zofran Inj) 4 mg IVP Q4 PRN PRN Reason: Nausea/Vomiting Pantoprazole Sodium (Protonix Inj) 40 mg IVP DAILY [facility] Last Admin: 10/03/18 10:31 Dose: 40 mg - Labs Labs: 10/03/18 06:00 10/03/18 06:00 PT 13.6 Seconds (9.8-13.1) H 10/03/18 06:15 INR 1.2 10/03/18 06:15 APTT 35.0 Seconds (25.6-37.1) 10/03/18 06:15 Assessment and Plan - Assessment and Plan (Free Text) Plan: pt seen at bedside, no overnight events. Pt reports some epigastric/RUQ discomfort. Pt tolerating clear liquid diet, no nausea or vomiting. gen: awake, alert, NAD HEENT: NC/AT, EOMI, PERRLA abd: soft, ND, +epigastric tenderness, + murphys a/p 82yo F with acute cholecystitis, LFts trending down -pain control -IVF -IV abx -clears + ensure -repeat LFTs -OR 10/06
--- NOTE | 2018-10-03 09:52 | CP.PCM.PN ---
Subjective - Date & Time of Evaluation Date of Evaluation: 10/02/18 Time of Evaluation: 17:30 - Subjective Subjective: no overnight events Objective - Vital Signs/Intake and Output Vital Signs (last 24 hours): Temp Pulse Resp BP Pulse Ox 98.4 F 63 18 157/79 H 96 10/03/18 08:43 10/03/18 08:43 10/03/18 08:43 10/03/18 08:43 10/03/18 08:43 - Medications Medications: Current Medications Carvedilol (Coreg) 12.5 mg PO Q12 [facility] Last Admin: 10/02/18 20:41 Dose: 12.5 mg Dextrose (Dextrose 50% Inj) 0 ml IV STAT PRN; Protocol PRN Reason: Hypoglycemia Protocol Dextrose (Glutose 15) 0 gm PO ONCE PRN; Protocol PRN Reason: Hypoglycemia Protocol Gabapentin (Neurontin) 300 mg PO Q8 [facility] Last Admin: 10/03/18 01:00 Dose: Not Given Glucagon (Glucagen Diagnostic Kit) 0 mg IM STAT PRN; Protocol PRN Reason: Hypoglycemia Protocol Piperacillin Sod/Tazobactam (Sod 3.375 gm/ Sodium Chloride) 100 mls @ 100 mls/hr IVPB Q6 [facility]; Protocol Last Admin: 10/03/18 03:04 Dose: 100 mls/hr Sodium Chloride (Sodium Chloride 0.9%) 1,000 mls @ 100 mls/hr IV .Q10H [facility] Stop: 10/03/18 20:32 Last Admin: 10/03/18 01:00 Dose: 100 mls/hr Insulin Human Regular (Humulin R) 0 units SC ACHS [facility]; Protocol Last Admin: 10/03/18 07:44 Dose: Not Given Insulin Lispro Protam/Lispro Human (Humalog Mix 75/25) 20 units SC ACB [facility] Last Admin: 10/03/18 07:45 Dose: Not Given Levothyroxine Sodium (Synthroid) 88 mcg PO DAILY@0630 [facility] Last Admin: 10/02/18 09:13 Dose: Not Given Morphine Sulfate (Morphine) 1 mg IVP Q4 PRN PRN Reason: Pain, moderate (4-7) Ondansetron HCl (Zofran Inj) 4 mg IVP Q4 PRN PRN Reason: Nausea/Vomiting Pantoprazole Sodium (Protonix Inj) 40 mg IVP DAILY [facility] Last Admin: 10/02/18 09:11 Dose: 40 mg - Labs Labs: 10/03/18 06:00 10/03/18 06:00 PT 13.6 Seconds (9.8-13.1) H 10/03/18 06:15 INR 1.2 10/03/18 06:15 APTT 35.0 Seconds (25.6-37.1) 10/03/18 06:15 - Neck Exam Neck Exam: Normal Inspection - Respiratory Exam Respiratory Exam: Clear to Ausculation Bilateral, NORMAL BREATHING PATTERN - Cardiovascular Exam Cardiovascular Exam: REGULAR RHYTHM - GI/Abdominal Exam GI & Abdominal Exam: Soft, Normal Bowel Sounds Assessment and Plan - Assessment and Plan (Free Text) Assessment: 82 yo female with cholecystitis abx surgical input
--- NOTE | 2018-10-03 09:52 | CP.PCM.PN ---
Subjective - Date & Time of Evaluation Date of Evaluation: 10/01/18 Time of Evaluation: 16:30 - Subjective Subjective: no overnight events Objective - Vital Signs/Intake and Output Vital Signs (last 24 hours): Temp Pulse Resp BP Pulse Ox 98.4 F 63 18 157/79 H 96 10/03/18 08:43 10/03/18 08:43 10/03/18 08:43 10/03/18 08:43 10/03/18 08:43 - Medications Medications: Current Medications Carvedilol (Coreg) 12.5 mg PO Q12 [facility] Last Admin: 10/02/18 20:41 Dose: 12.5 mg Dextrose (Dextrose 50% Inj) 0 ml IV STAT PRN; Protocol PRN Reason: Hypoglycemia Protocol Dextrose (Glutose 15) 0 gm PO ONCE PRN; Protocol PRN Reason: Hypoglycemia Protocol Gabapentin (Neurontin) 300 mg PO Q8 [facility] Last Admin: 10/03/18 01:00 Dose: Not Given Glucagon (Glucagen Diagnostic Kit) 0 mg IM STAT PRN; Protocol PRN Reason: Hypoglycemia Protocol Piperacillin Sod/Tazobactam (Sod 3.375 gm/ Sodium Chloride) 100 mls @ 100 mls/hr IVPB Q6 [facility]; Protocol Last Admin: 10/03/18 03:04 Dose: 100 mls/hr Sodium Chloride (Sodium Chloride 0.9%) 1,000 mls @ 100 mls/hr IV .Q10H [facility] Stop: 10/03/18 20:32 Last Admin: 10/03/18 01:00 Dose: 100 mls/hr Insulin Human Regular (Humulin R) 0 units SC ACHS [facility]; Protocol Last Admin: 10/03/18 07:44 Dose: Not Given Insulin Lispro Protam/Lispro Human (Humalog Mix 75/25) 20 units SC ACB [facility] Last Admin: 10/03/18 07:45 Dose: Not Given Levothyroxine Sodium (Synthroid) 88 mcg PO DAILY@0630 [facility] Last Admin: 10/02/18 09:13 Dose: Not Given Morphine Sulfate (Morphine) 1 mg IVP Q4 PRN PRN Reason: Pain, moderate (4-7) Ondansetron HCl (Zofran Inj) 4 mg IVP Q4 PRN PRN Reason: Nausea/Vomiting Pantoprazole Sodium (Protonix Inj) 40 mg IVP DAILY [facility] Last Admin: 10/02/18 09:11 Dose: 40 mg - Labs Labs: 10/03/18 06:00 10/03/18 06:00 PT 13.6 Seconds (9.8-13.1) H 10/03/18 06:15 INR 1.2 10/03/18 06:15 APTT 35.0 Seconds (25.6-37.1) 10/03/18 06:15 - Neck Exam Neck Exam: Normal Inspection - Respiratory Exam Respiratory Exam: Clear to Ausculation Bilateral, NORMAL BREATHING PATTERN - Cardiovascular Exam Cardiovascular Exam: REGULAR RHYTHM - GI/Abdominal Exam GI & Abdominal Exam: Soft, Normal Bowel Sounds Assessment and Plan - Assessment and Plan (Free Text) Assessment: 82 yo female with cholecystitis abx surgical input
[2018-10-03] MEDS ORDERED: Potassium Chloride 20 mEq/15 ml LIQ UD PO ONE (10:11)
--- NOTE | 2018-10-03 10:35 | CP.PCM.PN ---
Subjective - Date & Time of Evaluation Date of Evaluation: 10/03/18 Time of Evaluation: 10:35 - Subjective Subjective: ID Note- no new events overnight. afebrile Objective - Vital Signs/Intake and Output Vital Signs (last 24 hours): Temp Pulse Resp BP Pulse Ox 98.4 F 63 18 157/79 H 96 10/03/18 08:43 10/03/18 09:59 10/03/18 08:43 10/03/18 09:59 10/03/18 08:43 - Medications Medications: Current Medications Carvedilol (Coreg) 12.5 mg PO Q12 [facility] Last Admin: 10/03/18 09:59 Dose: 12.5 mg Dextrose (Dextrose 50% Inj) 0 ml IV STAT PRN; Protocol PRN Reason: Hypoglycemia Protocol Dextrose (Glutose 15) 0 gm PO ONCE PRN; Protocol PRN Reason: Hypoglycemia Protocol Gabapentin (Neurontin) 300 mg PO Q8 [facility] Last Admin: 10/03/18 10:00 Dose: Not Given Glucagon (Glucagen Diagnostic Kit) 0 mg IM STAT PRN; Protocol PRN Reason: Hypoglycemia Protocol Piperacillin Sod/Tazobactam (Sod 3.375 gm/ Sodium Chloride) 100 mls @ 100 mls/hr IVPB Q6 [facility]; Protocol Last Admin: 10/03/18 10:00 Dose: 100 mls/hr Sodium Chloride (Sodium Chloride 0.9%) 1,000 mls @ 100 mls/hr IV .Q10H [facility] Stop: 10/03/18 20:32 Last Admin: 10/03/18 09:58 Dose: Not Given Insulin Human Regular (Humulin R) 0 units SC ACHS [facility]; Protocol Last Admin: 10/03/18 07:44 Dose: Not Given Insulin Lispro Protam/Lispro Human (Humalog Mix 75/25) 20 units SC ACB [facility] Last Admin: 10/03/18 07:45 Dose: Not Given Levothyroxine Sodium (Synthroid) 88 mcg PO DAILY@0630 [facility] Last Admin: 10/02/18 09:13 Dose: Not Given Morphine Sulfate (Morphine) 1 mg IVP Q4 PRN PRN Reason: Pain, moderate (4-7) Ondansetron HCl (Zofran Inj) 4 mg IVP Q4 PRN PRN Reason: Nausea/Vomiting Pantoprazole Sodium (Protonix Inj) 40 mg IVP DAILY [facility] Last Admin: 10/03/18 10:31 Dose: 40 mg - Labs Labs: - Additional Findings Additional findings: Constitutional Appears: No Acute Distress - Head Exam Head Exam: ATRAUMATIC - Eye Exam Eye Exam: EOMI - ENT Exam ENT Exam: Normal Oropharynx - Neck Exam Neck exam: Positive for: Full Rom - Respiratory Exam Respiratory Exam: Clear to Auscultation Bilateral, NORMAL BREATHING PATTERN - Cardiovascular Exam Cardiovascular Exam: RRR, +S1, +S2 - GI/Abdominal Exam GI & Abdominal Exam: Normal Bowel Sounds, Soft Additional comments: no tenderness No guarding No rebound - Extremities Exam Extremities exam: Positive for: normal inspection - Neurological Exam Neurological exam: Alert, Oriented x 3 Laboratory Results - last 72 hr 09/30/18 09/30/18 09/30/18 13:00 13:00 13:00 WBC RBC Hgb Hct MCV MCH MCHC RDW Plt Count MPV Neut % (Auto) Lymph % (Auto) [place] % (Auto) Eos % (Auto) Baso % (Auto) Neut # (Auto) Lymph # (Auto) [place] # (Auto) Eos # (Auto) Baso # (Auto) Haptoglobin PT INR APTT Sodium Potassium Chloride Carbon Dioxide Anion Gap BUN Creatinine Est GFR ( Amer) Est GFR (Non-Af Amer) POC Glucose (mg/dL) Random Glucose Calcium Phosphorus Magnesium Iron TIBC % Saturation Transferrin Ferritin Total Bilirubin Direct Bilirubin AST ALT Alkaline Phosphatase Total Protein Albumin Globulin Albumin/Globulin Ratio DIAMOND 6 Profile Negative DIAMOND Screen Negative Anti-Mitochondrial Ab Negative Hepatitis A IgM Ab Hepatitis A Ab Total Hep Bs Antigen Hep Bs Antibody Hep Bs Antibody, Quant Hep B Core IgM Ab Hep B DNA Interpret Hepatitis Be Antibody Hepatitis Be Antigen Hepatitis C Antibody Hep C Ab Signal/Cutoff HCV (Real-Time PCR) Hepatitis C RNA HCV RNA Quant (PCR) HCV RNA (PCR) IUs/ml Blood Type Antibody Screen Crossmatch BBK History Checked 09/30/18 09/30/18 09/30/18 13:30 13:30 13:30 WBC RBC Hgb Hct MCV MCH MCHC RDW Plt Count MPV Neut % (Auto) Lymph % (Auto) [place] % (Auto) Eos % (Auto) Baso % (Auto) Neut # (Auto) Lymph # (Auto) [place] # (Auto) Eos # (Auto) Baso # (Auto) Haptoglobin PT INR APTT Sodium Potassium Chloride Carbon Dioxide Anion Gap BUN Creatinine Est GFR ( Amer) Est GFR (Non-Af Amer) POC Glucose (mg/dL) Random Glucose Calcium Phosphorus Magnesium Iron TIBC % Saturation Transferrin Ferritin Total Bilirubin Direct Bilirubin AST ALT Alkaline Phosphatase Total Protein Albumin Globulin Albumin/Globulin Ratio DIAMOND 6 Profile DIAMOND Screen Anti-Mitochondrial Ab Hepatitis A IgM Ab Negative Negative Hepatitis A Ab Total Antibody pos Hep Bs Antigen Negative Hep Bs Antibody Positive Hep Bs Antibody, Quant Hep B Core IgM Ab Negative Negative Hep B DNA Interpret Hepatitis Be Antibody Hepatitis Be Antigen Hepatitis C Antibody Negative Negative Hep C Ab Signal/Cutoff HCV (Real-Time PCR) Hepatitis C RNA HCV RNA Quant (PCR) HCV RNA (PCR) IUs/ml Blood Type Antibody Screen Crossmatch BBK History Checked 09/30/18 09/30/18 09/30/18 13:30 13:30 13:30 WBC RBC Hgb Hct MCV MCH MCHC RDW Plt Count MPV Neut % (Auto) Lymph % (Auto) [place] % (Auto) Eos % (Auto) Baso % (Auto) Neut # (Auto) Lymph # (Auto) [place] # (Auto) Eos # (Auto) Baso # (Auto) Haptoglobin PT INR APTT Sodium Potassium Chloride Carbon Dioxide Anion Gap BUN Creatinine Est GFR ( Amer) Est GFR (Non-Af Amer) POC Glucose (mg/dL) Random Glucose Calcium Phosphorus Magnesium Iron TIBC % Saturation Transferrin Ferritin Total Bilirubin Direct Bilirubin AST ALT Alkaline Phosphatase Total Protein Albumin Globulin Albumin/Globulin Ratio DIAMOND 6 Profile DIAMOND Screen Anti-Mitochondrial Ab Hepatitis A IgM Ab Nonreactive Hepatitis A Ab Total Reactive H Hep Bs Antigen Hep Bs Antibody Hep Bs Antibody, Quant 160 Hep B Core IgM Ab Hep B DNA Interpret <1.30 not detected Hepatitis Be Antibody Reactive H Hepatitis Be Antigen Non-reactive Hepatitis C Antibody Non reactive Hep C Ab Signal/Cutoff 0.01 HCV (Real-Time PCR) <1.18 Hepatitis C RNA <15 not detected HCV RNA Quant (PCR) <1.18 not detected HCV RNA (PCR) IUs/ml <15 Blood Type Antibody Screen Crossmatch BBK History Checked 09/30/18 09/30/18 10/01/18 16:13 21:09 05:08 WBC RBC Hgb Hct MCV MCH MCHC RDW Plt Count MPV Neut % (Auto) Lymph % (Auto) [place] % (Auto) Eos % (Auto) Baso % (Auto) Neut # (Auto) Lymph # (Auto) [place] # (Auto) Eos # (Auto) Baso # (Auto) Haptoglobin PT INR APTT Sodium Potassium Chloride Carbon Dioxide Anion Gap BUN Creatinine Est GFR ( Amer) Est GFR (Non-Af Amer) POC Glucose (mg/dL) 120 H 266 H 100 Random Glucose Calcium Phosphorus Magnesium Iron TIBC % Saturation Transferrin Ferritin Total Bilirubin Direct Bilirubin AST ALT Alkaline Phosphatase Total Protein Albumin Globulin Albumin/Globulin Ratio DIAMOND 6 Profile DIAMOND Screen Anti-Mitochondrial Ab Hepatitis A IgM Ab Hepatitis A Ab Total Hep Bs Antigen Hep Bs Antibody Hep Bs Antibody, Quant Hep B Core IgM Ab Hep B DNA Interpret Hepatitis Be Antibody Hepatitis Be Antigen Hepatitis C Antibody Hep C Ab Signal/Cutoff HCV (Real-Time PCR) Hepatitis C RNA HCV RNA Quant (PCR) HCV RNA (PCR) IUs/ml Blood Type Antibody Screen Crossmatch BBK History Checked 10/01/18 10/01/18 10/01/18 06:15 06:15 06:15 WBC 6.6 RBC 3.18 L Hgb 9.6 L Hct 28.9 L MCV 91.1 MCH 30.2 MCHC 33.2 RDW 14.2 Plt Count 93 L MPV 9.4 Neut % (Auto) 71.4 Lymph % (Auto) 18.0 L [place] % (Auto) 8.5 Eos % (Auto) 1.7 Baso % (Auto) 0.4 Neut # (Auto) 4.7 Lymph # (Auto) 1.2 [place] # (Auto) 0.6 Eos # (Auto) 0.1 Baso # (Auto) 0.0 Haptoglobin PT 18.9 H INR 1.7 APTT 82.7 H Sodium 139 Potassium 3.9 Chloride 110 H Carbon Dioxide 21 L Anion Gap 12 BUN 18 H Creatinine 1.0 Est GFR ( Amer) > 60 Est GFR (Non-Af Amer) 53 POC Glucose (mg/dL) Random Glucose 103 Calcium 8.2 L Phosphorus 2.8 Magnesium 1.9 Iron TIBC % Saturation Transferrin Ferritin Total Bilirubin 3.2 H Direct Bilirubin AST 262 H D ALT 312 H D Alkaline Phosphatase 104 Total Protein 5.8 L Albumin 2.7 L Globulin 3.1 Albumin/Globulin Ratio 0.9 L DIAMOND 6 Profile DIAMOND Screen Anti-Mitochondrial Ab Hepatitis A IgM Ab Hepatitis A Ab Total Hep Bs Antigen Hep Bs Antibody Hep Bs Antibody, Quant Hep B Core IgM Ab Hep B DNA Interpret Hepatitis Be Antibody Hepatitis Be Antigen Hepatitis C Antibody Hep C Ab Signal/Cutoff HCV (Real-Time PCR) Hepatitis C RNA HCV RNA Quant (PCR) HCV RNA (PCR) IUs/ml Blood Type Antibody Screen Crossmatch BBK History Checked 10/01/18 10/01/18 10/01/18 09:15 10:00 10:00 WBC RBC Hgb Hct MCV MCH MCHC RDW Plt Count MPV Neut % (Auto) Lymph % (Auto) [place] % (Auto) Eos % (Auto) Baso % (Auto) Neut # (Auto) Lymph # (Auto) [place] # (Auto) Eos # (Auto) Baso # (Auto) Haptoglobin 150.9 PT INR APTT Sodium Potassium Chloride Carbon Dioxide Anion Gap BUN Creatinine Est GFR ( Amer) Est GFR (Non-Af Amer) POC Glucose (mg/dL) Random Glucose Calcium Phosphorus Magnesium Iron 51 TIBC 267 % Saturation 19 L Transferrin 172.77 L Ferritin Total Bilirubin 3.2 H Direct Bilirubin 2.6 H AST 263 H ALT 315 H Alkaline Phosphatase 100 Total Protein 5.6 L Albumin 2.7 L Globulin 2.9 Albumin/Globulin Ratio 0.9 L DIAMOND 6 Profile DIAMOND Screen Anti-Mitochondrial Ab Hepatitis A IgM Ab Hepatitis A Ab Total Hep Bs Antigen Hep Bs Antibody Hep Bs Antibody, Quant Hep B Core IgM Ab Hep B DNA Interpret Hepatitis Be Antibody Hepatitis Be Antigen Hepatitis C Antibody Hep C Ab Signal/Cutoff HCV (Real-Time PCR) Hepatitis C RNA HCV RNA Quant (PCR) HCV RNA (PCR) IUs/ml Blood Type Antibody Screen Crossmatch BBK History Checked 10/01/18 10/01/18 10/01/18 10:00 11:00 15:38 WBC RBC Hgb Hct MCV MCH MCHC RDW Plt Count MPV Neut % (Auto) Lymph % (Auto) [place] % (Auto) Eos % (Auto) Baso % (Auto) Neut # (Auto) Lymph # (Auto) [place] # (Auto) Eos # (Auto) Baso # (Auto) Haptoglobin PT INR APTT Sodium Potassium Chloride Carbon Dioxide Anion Gap BUN Creatinine Est GFR ( Amer) Est GFR (Non-Af Amer) POC Glucose (mg/dL) 119 H 166 H Random Glucose Calcium Phosphorus Magnesium Iron TIBC % Saturation Transferrin Ferritin 620.0 H Total Bilirubin Direct Bilirubin AST ALT Alkaline Phosphatase Total Protein Albumin Globulin Albumin/Globulin Ratio DIAMOND 6 Profile DIAMOND Screen Anti-Mitochondrial Ab Hepatitis A IgM Ab Hepatitis A Ab Total Hep Bs Antigen Hep Bs Antibody Hep Bs Antibody, Quant Hep B Core IgM Ab Hep B DNA Interpret Hepatitis Be Antibody Hepatitis Be Antigen Hepatitis C Antibody Hep C Ab Signal/Cutoff HCV (Real-Time PCR) Hepatitis C RNA HCV RNA Quant (PCR) HCV RNA (PCR) IUs/ml Blood Type Antibody Screen Crossmatch BBK History Checked 10/01/18 10/02/18 10/02/18 20:55 05:27 07:10 WBC 6.1 RBC 3.45 L Hgb 10.5 L Hct 31.2 L MCV 90.4 MCH 30.4 MCHC 33.6 RDW 14.2 Plt Count 104 L MPV 9.2 Neut % (Auto) 69.0 Lymph % (Auto) 21.0 [place] % (Auto) 7.6 Eos % (Auto) 1.9 Baso % (Auto) 0.5 Neut # (Auto) 4.2 Lymph # (Auto) 1.3 [place] # (Auto) 0.5 Eos # (Auto) 0.1 Baso # (Auto) 0.0 Haptoglobin PT INR APTT Sodium Potassium Chloride Carbon Dioxide Anion Gap BUN Creatinine Est GFR ( Amer) Est GFR (Non-Af Amer) POC Glucose (mg/dL) 171 H 109 Random Glucose Calcium Phosphorus Magnesium Iron TIBC % Saturation Transferrin Ferritin Total Bilirubin Direct Bilirubin AST ALT Alkaline Phosphatase Total Protein Albumin Globulin Albumin/Globulin Ratio DIAMOND 6 Profile DIAMOND Screen Anti-Mitochondrial Ab Hepatitis A IgM Ab Hepatitis A Ab Total Hep Bs Antigen Hep Bs Antibody Hep Bs Antibody, Quant Hep B Core IgM Ab Hep B DNA Interpret Hepatitis Be Antibody Hepatitis Be Antigen Hepatitis C Antibody Hep C Ab Signal/Cutoff HCV (Real-Time PCR) Hepatitis C RNA HCV RNA Quant (PCR) HCV RNA (PCR) IUs/ml Blood Type Antibody Screen Crossmatch BBK History Checked 10/02/18 10/02/18 10/02/18 07:10 09:10 10:30 WBC RBC Hgb Hct MCV MCH MCHC RDW Plt Count MPV Neut % (Auto) Lymph % (Auto) [place] % (Auto) Eos % (Auto) Baso % (Auto) Neut # (Auto) Lymph # (Auto) [place] # (Auto) Eos # (Auto) Baso # (Auto) Haptoglobin PT 14.0 H INR 1.2 APTT 39.1 H Sodium 141 Potassium 3.8 Chloride 112 H Carbon Dioxide 20 L Anion Gap 13 BUN 15 Creatinine 1.4 H Est GFR ( Amer) 44 Est GFR (Non-Af Amer) 36 POC Glucose (mg/dL) Random Glucose 108 H Calcium 8.8 Phosphorus Magnesium Iron TIBC % Saturation Transferrin Ferritin Total Bilirubin 2.8 H Direct Bilirubin AST 144 H D ALT 245 H D Alkaline Phosphatase 140 H D Total Protein 6.5 Albumin 3.2 L Globulin 3.3 Albumin/Globulin Ratio 0.9 L DIAMOND 6 Profile DIAMOND Screen Anti-Mitochondrial Ab Hepatitis A IgM Ab Hepatitis A Ab Total Hep Bs Antigen Hep Bs Antibody Hep Bs Antibody, Quant Hep B Core IgM Ab Hep B DNA Interpret Hepatitis Be Antibody Hepatitis Be Antigen Hepatitis C Antibody Hep C Ab Signal/Cutoff HCV (Real-Time PCR) Hepatitis C RNA HCV RNA Quant (PCR) HCV RNA (PCR) IUs/ml Blood Type B POSITIVE Antibody Screen Negative Crossmatch See Detail BBK History Checked Patient has bt 10/02/18 10/02/18 10/02/18 11:00 16:14 20:50 WBC RBC Hgb Hct MCV MCH MCHC RDW Plt Count MPV Neut % (Auto) Lymph % (Auto) [place] % (Auto) Eos % (Auto) Baso % (Auto) Neut # (Auto) Lymph # (Auto) [place] # (Auto) Eos # (Auto) Baso # (Auto) Haptoglobin PT INR APTT Sodium Potassium Chloride Carbon Dioxide Anion Gap BUN Creatinine Est GFR ( Amer) Est GFR (Non-Af Amer) POC Glucose (mg/dL) 125 H 109 136 H Random Glucose Calcium Phosphorus Magnesium Iron TIBC % Saturation Transferrin Ferritin Total Bilirubin Direct Bilirubin AST ALT Alkaline Phosphatase Total Protein Albumin Globulin Albumin/Globulin Ratio DIAMOND 6 Profile DIAMOND Screen Anti-Mitochondrial Ab Hepatitis A IgM Ab Hepatitis A Ab Total Hep Bs Antigen Hep Bs Antibody Hep Bs Antibody, Quant Hep B Core IgM Ab Hep B DNA Interpret Hepatitis Be Antibody Hepatitis Be Antigen Hepatitis C Antibody Hep C Ab Signal/Cutoff HCV (Real-Time PCR) Hepatitis C RNA HCV RNA Quant (PCR) HCV RNA (PCR) IUs/ml Blood Type Antibody Screen Crossmatch BBK History Checked 10/03/18 10/03/18 10/03/18 05:03 06:00 06:00 WBC 5.9 RBC 3.26 L Hgb 9.9 L Hct 29.3 L MCV 90.0 MCH 30.4 MCHC 33.8 RDW 14.2 Plt Count 101 L MPV 9.3 Neut % (Auto) 63.3 Lymph % (Auto) 23.8 [place] % (Auto) 10.6 H Eos % (Auto) 2.0 Baso % (Auto) 0.3 Neut # (Auto) 3.8 Lymph # (Auto) 1.4 [place] # (Auto) 0.6 Eos # (Auto) 0.1 Baso # (Auto) 0.0 Haptoglobin PT INR APTT Sodium 139 Potassium 3.5 L Chloride 108 H Carbon Dioxide 23 Anion Gap 12 BUN 13 Creatinine 1.3 H Est GFR ( Amer) 48 Est GFR (Non-Af Amer) 39 POC Glucose (mg/dL) 111 H Random Glucose 103 Calcium 8.8 Phosphorus Magnesium Iron TIBC % Saturation Transferrin Ferritin Total Bilirubin 2.5 H Direct Bilirubin AST 84 H D ALT 164 H D Alkaline Phosphatase 156 H Total Protein 6.6 Albumin 3.3 L Globulin 3.3 Albumin/Globulin Ratio 1.0 DIAMOND 6 Profile DIAMOND Screen Anti-Mitochondrial Ab Hepatitis A IgM Ab Hepatitis A Ab Total Hep Bs Antigen Hep Bs Antibody Hep Bs Antibody, Quant Hep B Core IgM Ab Hep B DNA Interpret Hepatitis Be Antibody Hepatitis Be Antigen Hepatitis C Antibody Hep C Ab Signal/Cutoff HCV (Real-Time PCR) Hepatitis C RNA HCV RNA Quant (PCR) HCV RNA (PCR) IUs/ml Blood Type Antibody Screen Crossmatch BBK History Checked 10/03/18 10/03/18 10/03/18 06:15 11:01 15:40 WBC RBC Hgb Hct MCV MCH MCHC RDW Plt Count MPV Neut % (Auto) Lymph % (Auto) [place] % (Auto) Eos % (Auto) Baso % (Auto) Neut # (Auto) Lymph # (Auto) [place] # (Auto) Eos # (Auto) Baso # (Auto) Haptoglobin PT 13.6 H INR 1.2 APTT 35.0 Sodium Potassium Chloride Carbon Dioxide Anion Gap BUN Creatinine Est GFR ( Amer) Est GFR (Non-Af Amer) POC Glucose (mg/dL) 98 115 H Random Glucose Calcium Phosphorus Magnesium Iron TIBC % Saturation Transferrin Ferritin Total Bilirubin Direct Bilirubin AST ALT Alkaline Phosphatase Total Protein Albumin Globulin Albumin/Globulin Ratio DIAMOND 6 Profile DIAMOND Screen Anti-Mitochondrial Ab Hepatitis A IgM Ab Hepatitis A Ab Total Hep Bs Antigen Hep Bs Antibody Hep Bs Antibody, Quant Hep B Core IgM Ab Hep B DNA Interpret Hepatitis Be Antibody Hepatitis Be Antigen Hepatitis C Antibody Hep C Ab Signal/Cutoff HCV (Real-Time PCR) Hepatitis C RNA HCV RNA Quant (PCR) HCV RNA (PCR) IUs/ml Blood Type Antibody Screen Crossmatch BBK History Checked Microbiology 09/29/18 20:25 Blood Blood Culture - Preliminary NO GROWTH AFTER 3 DAYS 09/29/18 19:55 Blood Blood Culture - Preliminary NO GROWTH AFTER 3 DAYS 09/29/18 22:11 Urine Random Urine Culture - Final No Growth (<1,000 CFU/ML) Assessment and Plan (1) Cholecystitis Status: Acute (2) Diabetes type 2, uncontrolled Status: Chronic (3) Elevated liver enzymes Status: Acute (4) UTI (urinary tract infection) Status: Acute - Assessment and Plan (Free Text) Assessment: A/P- 82 year old female with multiple medical conditions including DM II, Hypothyroidism, HTN admitted with lethargy, fatigue found to have high fever and elavated LFTs and cholecystitis and possibly right Pyelonephritis as per CT report. clinically better . afebrile past 4 days. normal wbc count .blood cx- neg x 2 urine cx- neg hepatitis panel- negative LFTS and T.Bili- trending down plan- continue with IV zosyn day #4 for choledocholithiais. awaits cholecystectomy.
[2018-10-03] MEDS ORDERED: Potassium Chloride 20 mEq ER Tab PO ONE (11:25)
--- NOTE | 2018-10-03 12:39 | CP.PCM.PN ---
Subjective - Date & Time of Evaluation Date of Evaluation: 10/03/18 Time of Evaluation: 12:39 - Subjective Subjective: Patient improving on present rx,. Still Liver enzymes with bilirubin elevated. Objective - Vital Signs/Intake and Output Vital Signs (last 24 hours): Temp Pulse Resp BP Pulse Ox 98.4 F 63 18 157/79 H 96 10/03/18 08:43 10/03/18 09:59 10/03/18 08:43 10/03/18 09:59 10/03/18 08:43 - Medications Medications: Current Medications Carvedilol (Coreg) 12.5 mg PO Q12 [facility] Last Admin: 10/03/18 09:59 Dose: 12.5 mg Dextrose (Dextrose 50% Inj) 0 ml IV STAT PRN; Protocol PRN Reason: Hypoglycemia Protocol Dextrose (Glutose 15) 0 gm PO ONCE PRN; Protocol PRN Reason: Hypoglycemia Protocol Gabapentin (Neurontin) 300 mg PO Q8 [facility] Last Admin: 10/03/18 10:00 Dose: Not Given Glucagon (Glucagen Diagnostic Kit) 0 mg IM STAT PRN; Protocol PRN Reason: Hypoglycemia Protocol Piperacillin Sod/Tazobactam (Sod 3.375 gm/ Sodium Chloride) 100 mls @ 100 mls/hr IVPB Q6 [facility]; Protocol Last Admin: 10/03/18 10:00 Dose: 100 mls/hr Sodium Chloride (Sodium Chloride 0.9%) 1,000 mls @ 100 mls/hr IV .Q10H [facility] Stop: 10/03/18 20:32 Last Admin: 10/03/18 09:58 Dose: Not Given Insulin Human Regular (Humulin R) 0 units SC ACHS [facility]; Protocol Last Admin: 10/03/18 11:28 Dose: Not Given Insulin Lispro Protam/Lispro Human (Humalog Mix 75/25) 20 units SC ACB [facility] Last Admin: 10/03/18 07:45 Dose: Not Given Levothyroxine Sodium (Synthroid) 88 mcg PO DAILY@0630 [facility] Last Admin: 10/02/18 09:13 Dose: Not Given Morphine Sulfate (Morphine) 1 mg IVP Q4 PRN PRN Reason: Pain, moderate (4-7) Ondansetron HCl (Zofran Inj) 4 mg IVP Q4 PRN PRN Reason: Nausea/Vomiting Pantoprazole Sodium (Protonix Inj) 40 mg IVP DAILY [facility] Last Admin: 10/03/18 10:31 Dose: 40 mg - Labs Labs: 10/03/18 06:00 10/03/18 06:00 PT 13.6 Seconds (9.8-13.1) H 10/03/18 06:15 INR 1.2 10/03/18 06:15 APTT 35.0 Seconds (25.6-37.1) 10/03/18 06:15 - Constitutional Appears: Chronically Ill - Head Exam Head Exam: ATRAUMATIC, NORMAL INSPECTION, NORMOCEPHALIC - Eye Exam Eye Exam: Normal appearance - ENT Exam ENT Exam: Mucous Membranes Moist - Respiratory Exam Respiratory Exam: Decreased Breath Sounds, Clear to Ausculation Bilateral - Cardiovascular Exam Cardiovascular Exam: REGULAR RHYTHM, +S1, +S2 - GI/Abdominal Exam GI & Abdominal Exam: Tenderness - Neurological Exam Neurological Exam: Alert, Awake, Oriented x3 - Psychiatric Exam Psychiatric exam: Normal Affect - Skin Skin Exam: Pallor Assessment and Plan (1) Cholelithiasis Status: Acute (2) Cholangitis Status: Suspected (3) Cholecystitis Status: Acute (4) Diabetes type 2, uncontrolled Status: Chronic (5) Elevated liver enzymes Status: Acute (6) Near syncope Status: Acute (7) Hypertension Status: Chronic (8) Hypothyroidism Status: Chronic (9) Pyelonephritis Status: Acute
[2018-10-04] MEDS: Piperacillin/Tazobact 3.375 GM in Sodium Chloride 0.9% 100 ML IVPB SCH ×4 (03:30→21:29)
--- NOTE | 2018-10-04 04:30 | CP.PCM.PN ---
<Kelvin Mishra - Last Filed: 10/04/18 04:31> Subjective - Date & Time of Evaluation Date of Evaluation: 10/04/18 Time of Evaluation: 04:28 - Subjective Subjective: SURGERY NOTE FOR DR. MOSHER 82F seen and examined at bedside. Patient doing well, admits to mild tenderness, denies nausea or vomiting, denies fevers or chills. Currently NPO. Objective - Vital Signs/Intake and Output Vital Signs (last 24 hours): Temp Pulse Resp BP Pulse Ox 97.9 F 67 20 147/72 97 10/04/18 00:09 10/04/18 00:09 10/04/18 00:09 10/04/18 00:09 10/04/18 00:09 - Medications Medications: Current Medications Carvedilol (Coreg) 12.5 mg PO Q12 [facility] Last Admin: 10/03/18 21:14 Dose: 12.5 mg Dextrose (Dextrose 50% Inj) 0 ml IV STAT PRN; Protocol PRN Reason: Hypoglycemia Protocol Dextrose (Glutose 15) 0 gm PO ONCE PRN; Protocol PRN Reason: Hypoglycemia Protocol Gabapentin (Neurontin) 300 mg PO Q8 [facility] Last Admin: 10/04/18 00:34 Dose: 300 mg Glucagon (Glucagen Diagnostic Kit) 0 mg IM STAT PRN; Protocol PRN Reason: Hypoglycemia Protocol Piperacillin Sod/Tazobactam (Sod 3.375 gm/ Sodium Chloride) 100 mls @ 100 mls/hr IVPB Q6 [facility]; Protocol Last Admin: 10/03/18 21:15 Dose: 100 mls/hr Insulin Human Regular (Humulin R) 0 units SC ACHS [facility]; Protocol Last Admin: 10/03/18 22:09 Dose: Not Given Insulin Lispro Protam/Lispro Human (Humalog Mix 75/25) 20 units SC ACB [facility] Last Admin: 10/03/18 07:45 Dose: Not Given Levothyroxine Sodium (Synthroid) 88 mcg PO DAILY@0630 [facility] Last Admin: 10/03/18 06:30 Dose: Not Given Morphine Sulfate (Morphine) 1 mg IVP Q4 PRN PRN Reason: Pain, moderate (4-7) Ondansetron HCl (Zofran Inj) 4 mg IVP Q4 PRN PRN Reason: Nausea/Vomiting Pantoprazole Sodium (Protonix Inj) 40 mg IVP DAILY [facility] Last Admin: 10/03/18 10:31 Dose: 40 mg - Labs Labs: 10/03/18 06:00 10/03/18 06:00 PT 13.6 Seconds (9.8-13.1) H 10/03/18 06:15 INR 1.2 10/03/18 06:15 APTT 35.0 Seconds (25.6-37.1) 10/03/18 06:15 - Constitutional Appears: Non-toxic, No Acute Distress - Respiratory Exam Respiratory Exam: Clear to Ausculation Bilateral, NORMAL BREATHING PATTERN - Cardiovascular Exam Cardiovascular Exam: REGULAR RHYTHM, +S1, +S2 - GI/Abdominal Exam GI & Abdominal Exam: Soft, Tenderness (RUQ tenderness). absent: Distended, Firm, Guarding, Rigid, Rebound - Neurological Exam Neurological Exam: Alert, Awake - Skin Skin Exam: Dry, Intact, Normal Color, Warm Assessment and Plan - Assessment and Plan (Free Text) Assessment: 82F with acute cholecystitis Plan: - NPO - IVF - IV antibiotics - Monitor LFTs - Plan for OR 10/06 Further recs discuss with Attending Dalton Mishra, PGY3 <Nikita Ybarra - Last Filed: 10/04/18 12:46> Objective - Vital Signs/Intake and Output Vital Signs (last 24 hours): Temp Pulse Resp BP Pulse Ox 97.4 F L 66 20 154/74 H 96 10/04/18 09:00 10/04/18 09:22 10/04/18 09:00 10/04/18 09:22 10/04/18 09:00 - Medications Medications: Current Medications Carvedilol (Coreg) 12.5 mg PO Q12 [facility] Last Admin: 10/04/18 09:22 Dose: 12.5 mg Dextrose (Dextrose 50% Inj) 0 ml IV STAT PRN; Protocol PRN Reason: Hypoglycemia Protocol Dextrose (Glutose 15) 0 gm PO ONCE PRN; Protocol PRN Reason: Hypoglycemia Protocol Gabapentin (Neurontin) 300 mg PO Q8 [facility] Last Admin: 10/04/18 09:22 Dose: 300 mg Glucagon (Glucagen Diagnostic Kit) 0 mg IM STAT PRN; Protocol PRN Reason: Hypoglycemia Protocol Piperacillin Sod/Tazobactam (Sod 3.375 gm/ Sodium Chloride) 100 mls @ 100 mls/hr IVPB Q6 [facility]; Protocol Last Admin: 10/04/18 09:21 Dose: 100 mls/hr Insulin Human Regular (Humulin R) 0 units SC ACHS [facility]; Protocol Last Admin: 10/04/18 12:35 Dose: Not Given Insulin Lispro Protam/Lispro Human (Humalog Mix 75/25) 20 units SC ACB [facility] Last Admin: 10/04/18 09:23 Dose: 20 units Levothyroxine Sodium (Synthroid) 88 mcg PO DAILY@0630 [facility] Last Admin: 10/04/18 05:36 Dose: 88 mcg Morphine Sulfate (Morphine) 1 mg IVP Q4 PRN PRN Reason: Pain, moderate (4-7) Ondansetron HCl (Zofran Inj) 4 mg IVP Q4 PRN PRN Reason: Nausea/Vomiting Pantoprazole Sodium (Protonix Inj) 40 mg IVP DAILY [facility] Last Admin: 10/04/18 09:22 Dose: 40 mg - Labs Labs: 10/03/18 06:00 10/03/18 06:00 PT 13.6 Seconds (9.8-13.1) H 10/03/18 06:15 INR 1.2 10/03/18 06:15 APTT 35.0 Seconds (25.6-37.1) 10/03/18 06:15 Assessment and Plan - Assessment and Plan (Free Text) Plan: as above, for mary josee saturday, recheck lfts
[2018-10-04] MEDS: Levothyroxine 88 MCG TAB PO SCH (05:36)
[2018-10-04] MEDS: Insulin Regular 100 units/ml SC SCH ×4 (07:43→21:52)
[2018-10-04] MEDS: Insulin Lispro Mix 75/25 100 units/ml (HumaLog) 10ml SC SCH (09:23)
--- NOTE | 2018-10-04 13:59 | CP.PCM.PN ---
Subjective - Date & Time of Evaluation Date of Evaluation: 10/04/18 Time of Evaluation: 13:59 - Subjective Subjective: Still abd tenderness improving, pelvic discomfort. Will check urine c/s. Objective - Vital Signs/Intake and Output Vital Signs (last 24 hours): Temp Pulse Resp BP Pulse Ox 97.4 F L 66 20 154/74 H 96 10/04/18 09:00 10/04/18 09:22 10/04/18 09:00 10/04/18 09:22 10/04/18 09:00 - Medications Medications: Current Medications Carvedilol (Coreg) 12.5 mg PO Q12 [facility] Last Admin: 10/04/18 09:22 Dose: 12.5 mg Dextrose (Dextrose 50% Inj) 0 ml IV STAT PRN; Protocol PRN Reason: Hypoglycemia Protocol Dextrose (Glutose 15) 0 gm PO ONCE PRN; Protocol PRN Reason: Hypoglycemia Protocol Gabapentin (Neurontin) 300 mg PO Q8 [facility] Last Admin: 10/04/18 09:22 Dose: 300 mg Glucagon (Glucagen Diagnostic Kit) 0 mg IM STAT PRN; Protocol PRN Reason: Hypoglycemia Protocol Piperacillin Sod/Tazobactam (Sod 3.375 gm/ Sodium Chloride) 100 mls @ 100 mls/hr IVPB Q6 [facility]; Protocol Last Admin: 10/04/18 09:21 Dose: 100 mls/hr Insulin Human Regular (Humulin R) 0 units SC ACHS [facility]; Protocol Last Admin: 10/04/18 12:35 Dose: Not Given Insulin Lispro Protam/Lispro Human (Humalog Mix 75/25) 20 units SC ACB [facility] Last Admin: 10/04/18 09:23 Dose: 20 units Levothyroxine Sodium (Synthroid) 88 mcg PO DAILY@0630 [facility] Last Admin: 10/04/18 05:36 Dose: 88 mcg Morphine Sulfate (Morphine) 1 mg IVP Q4 PRN PRN Reason: Pain, moderate (4-7) Ondansetron HCl (Zofran Inj) 4 mg IVP Q4 PRN PRN Reason: Nausea/Vomiting Pantoprazole Sodium (Protonix Inj) 40 mg IVP DAILY [facility] Last Admin: 10/04/18 09:22 Dose: 40 mg - Labs Labs: 10/03/18 06:00 10/03/18 06:00 PT 13.6 Seconds (9.8-13.1) H 10/03/18 06:15 INR 1.2 10/03/18 06:15 APTT 35.0 Seconds (25.6-37.1) 10/03/18 06:15 - Constitutional Appears: Chronically Ill - Head Exam Head Exam: ATRAUMATIC, NORMAL INSPECTION, NORMOCEPHALIC - Eye Exam Eye Exam: Normal appearance - ENT Exam ENT Exam: Normal Exam - Neck Exam Neck Exam: Full ROM - Respiratory Exam Respiratory Exam: Clear to Ausculation Bilateral - Cardiovascular Exam Cardiovascular Exam: REGULAR RHYTHM, +S1, +S2 - GI/Abdominal Exam GI & Abdominal Exam: Tenderness - Extremities Exam Extremities Exam: Normal Inspection - Neurological Exam Neurological Exam: Alert, Awake, Oriented x3 - Psychiatric Exam Psychiatric exam: Flat Affect - Skin Skin Exam: Normal Color Assessment and Plan (1) Cholelithiasis Status: Acute (2) Cholangitis Status: Suspected (3) Cholecystitis Status: Acute (4) Diabetes type 2, uncontrolled Status: Chronic (5) Elevated liver enzymes Status: Acute (6) Near syncope Status: Acute (7) Hypertension Status: Chronic (8) Hypothyroidism Status: Chronic (9) Pyelonephritis Status: Acute
[2018-10-04 20:23] LABS: HEPATITIS E AB (IGG) NOT DETECTED
[2018-10-05] MEDS: Piperacillin/Tazobact 3.375 GM in Sodium Chloride 0.9% 100 ML IVPB SCH ×4 (03:24→21:53)
[2018-10-05] MEDS: Levothyroxine 88 MCG TAB PO SCH (05:36)
[2018-10-05] MEDS: Insulin Regular 100 units/ml SC SCH ×4 (07:19→21:52)
[2018-10-05 07:31] LABS: ALBUMIN 3.2 g/dL (3.5-5.0); CALCIUM 9.1 mg/dL (8.4-10.2)
[2018-10-05] MEDS ORDERED: Ergocalciferol 50,000 Intl Units Cap PO SCH (09:00)
[2018-10-05] MEDS: Insulin Lispro Mix 75/25 100 units/ml (HumaLog) 10ml SC SCH (09:03)
[2018-10-05] MEDS ORDERED: Potassium Chloride 20 mEq ER Tab PO ONE (10:19)
--- NOTE | 2018-10-05 11:49 | CP.PCM.PN ---
Subjective - Date & Time of Evaluation Date of Evaluation: 10/05/18 Time of Evaluation: 11:46 - Subjective Subjective: pain gone, t bili 1.5 no complaints Objective - Vital Signs/Intake and Output Vital Signs (last 24 hours): Temp Pulse Resp BP Pulse Ox 97.5 F L 65 18 157/66 H 96 10/05/18 08:57 10/05/18 08:57 10/05/18 08:57 10/05/18 09:02 10/05/18 08:57 - Medications Medications: Current Medications Carvedilol (Coreg) 12.5 mg PO Q12 [facility] Last Admin: 10/05/18 09:02 Dose: 12.5 mg Dextrose (Dextrose 50% Inj) 0 ml IV STAT PRN; Protocol PRN Reason: Hypoglycemia Protocol Dextrose (Glutose 15) 0 gm PO ONCE PRN; Protocol PRN Reason: Hypoglycemia Protocol Gabapentin (Neurontin) 300 mg PO Q8 [facility] Last Admin: 10/05/18 09:02 Dose: 300 mg Glucagon (Glucagen Diagnostic Kit) 0 mg IM STAT PRN; Protocol PRN Reason: Hypoglycemia Protocol Piperacillin Sod/Tazobactam (Sod 3.375 gm/ Sodium Chloride) 100 mls @ 100 mls/h r IVPB Q6 [facility]; Protocol Last Admin: 10/05/18 09:03 Dose: 100 mls/hr Insulin Human Regular (Humulin R) 0 units SC ACHS [facility]; Protocol Last Admin: 10/05/18 11:08 Dose: Not Given Insulin Lispro Protam/Lispro Human (Humalog Mix 75/25) 20 units SC ACB [facility] Last Admin: 10/05/18 09:03 Dose: 20 units Levothyroxine Sodium (Synthroid) 88 mcg PO DAILY@0630 [facility] Last Admin: 10/05/18 05:36 Dose: 88 mcg Morphine Sulfate (Morphine) 1 mg IVP Q4 PRN PRN Reason: Pain, moderate (4-7) Ondansetron HCl (Zofran Inj) 4 mg IVP Q4 PRN PRN Reason: Nausea/Vomiting Pantoprazole Sodium (Protonix Inj) 40 mg IVP DAILY [facility] Last Admin: 10/05/18 09:03 Dose: 40 mg - Labs Labs: 10/03/18 06:00 10/05/18 05:30 PT 13.6 Seconds (9.8-13.1) H 04/05/19 06:15 INR 1.2 10/03/18 06:15 APTT 35.0 Seconds (25.6-37.1) 10/03/18 06:15 - Constitutional Appears: Non-toxic - Eye Exam Eye Exam: EOMI, Normal appearance - ENT Exam ENT Exam: Mucous Membranes Moist - Neck Exam Neck Exam: Full ROM - Respiratory Exam Respiratory Exam: Clear to Ausculation Bilateral - Cardiovascular Exam Cardiovascular Exam: REGULAR RHYTHM - GI/Abdominal Exam GI & Abdominal Exam: Soft, Normal Bowel Sounds Assessment and Plan - Assessment and Plan (Free Text) Assessment: cholecystitis Plan: lap priscilla in AM
--- NOTE | 2018-10-05 13:16 | CP.PCM.PN ---
Subjective - Date & Time of Evaluation Date of Evaluation: 10/05/18 Time of Evaluation: 13:16 - Subjective Subjective: Patient improving well on present rx. One episode of symptomatic hypoglycemia, diarrhea. Continue present rx for surgery. Will follow labs. Objective - Vital Signs/Intake and Output Vital Signs (last 24 hours): Temp Pulse Resp BP Pulse Ox 97.5 F L 65 18 157/66 H 96 10/05/18 08:57 10/05/18 08:57 10/05/18 08:57 10/05/18 09:02 10/05/18 08:57 - Medications Medications: Current Medications Carvedilol (Coreg) 12.5 mg PO Q12 [facility] Last Admin: 10/05/18 09:02 Dose: 12.5 mg Dextrose (Dextrose 50% Inj) 0 ml IV STAT PRN; Protocol PRN Reason: Hypoglycemia Protocol Last Admin: 10/05/18 13:01 Dose: 50 ml Dextrose (Glutose 15) 0 gm PO ONCE PRN; Protocol PRN Reason: Hypoglycemia Protocol Gabapentin (Neurontin) 300 mg PO Q8 [facility] Last Admin: 10/05/18 09:02 Dose: 300 mg Glucagon (Glucagen Diagnostic Kit) 0 mg IM STAT PRN; Protocol PRN Reason: Hypoglycemia Protocol Piperacillin Sod/Tazobactam (Sod 3.375 gm/ Sodium Chloride) 100 mls @ 100 mls/hr IVPB Q6 [facility]; Protocol Last Admin: 10/05/18 09:03 Dose: 100 mls/hr Dextrose/Sodium Chloride (Dextrose 5%-0.9% Ns 500 Ml) 500 mls @ 85 mls/hr IV .Q5H53M [facility] Stop: 10/06/18 13:11 Insulin Human Regular (Humulin R) 0 units SC ACHS [facility]; Protocol Last Admin: 10/05/18 11:08 Dose: Not Given Insulin Lispro Protam/Lispro Human (Humalog Mix 75/25) 20 units SC ACB [facility] Last Admin: 10/05/18 09:03 Dose: 20 units Levothyroxine Sodium (Synthroid) 88 mcg PO DAILY@0630 [facility] Last Admin: 10/05/18 05:36 Dose: 88 mcg Morphine Sulfate (Morphine) 1 mg IVP Q4 PRN PRN Reason: Pain, moderate (4-7) Ondansetron HCl (Zofran Inj) 4 mg IVP Q4 PRN PRN Reason: Nausea/Vomiting Pantoprazole Sodium (Protonix Inj) 40 mg IVP DAILY [facility] Last Admin: 10/05/18 09:03 Dose: 40 mg - Labs Labs: 10/03/18 06:00 10/05/18 05:30 PT 13.6 Seconds (9.8-13.1) H 10/03/18 06:15 INR 1.2 10/03/18 06:15 APTT 35.0 Seconds (25.6-37.1) 10/03/18 06:15 - Constitutional Appears: Chronically Ill - Head Exam Head Exam: ATRAUMATIC, NORMAL INSPECTION, NORMOCEPHALIC - Eye Exam Eye Exam: Normal appearance - ENT Exam ENT Exam: Mucous Membranes Dry - Neck Exam Neck Exam: Full ROM - Respiratory Exam Respiratory Exam: Clear to Ausculation Bilateral - Cardiovascular Exam Cardiovascular Exam: REGULAR RHYTHM, +S1, +S2 - GI/Abdominal Exam GI & Abdominal Exam: Tenderness - Neurological Exam Neurological Exam: Alert, Awake, Oriented x3 - Psychiatric Exam Psychiatric exam: Normal Affect - Skin Skin Exam: Normal Color Assessment and Plan (1) Cholelithiasis Status: Acute (2) Cholangitis Status: Suspected (3) Cholecystitis Status: Acute (4) Diabetes type 2, uncontrolled Status: Chronic (5) Elevated liver enzymes Status: Acute (6) Near syncope Status: Acute (7) Hypertension Status: Chronic (8) Hypothyroidism Status: Chronic (9) Pyelonephritis Status: Acute
[2018-10-05] MEDS ORDERED: Sodium Chloride 0.9% 1,000 ML IV SCH (23:55)
[2018-10-06] MEDS: Piperacillin/Tazobact 3.375 GM in Sodium Chloride 0.9% 100 ML IVPB SCH (04:44)
[2018-10-06] MEDS: Levothyroxine 88 MCG TAB PO SCH (05:47)
[2018-10-06 06:23] LABS: INR 1.2; PROTHROMBIN TIME 13.6 Seconds (9.8-13.1)
[2018-10-06 06:33] LABS: BASO % 0.4 % (0.0-2.0); EOS # 0.2 K/uL (0.0-0.7); EOS % 2.8 % (0.0-4.0); HEMOGLOBIN 9.9 g/dL (12.0-16.0); LYMPH # 1.9 K/uL (1.0-4.3); LYMPH % 27.3 % (20.0-40.0); MEAN CELL VOLUME 90.2 fl (81.0-99.0); MEAN CORPUSCULAR HEMOGLOBIN 30.3 pg (27.0-31.0); MEAN CORPUSCULAR HGB CONC 33.6 g/dL (33.0-37.0); MEAN PLATELET VOLUME 9.1 fl (7.2-11.7); MONO # 0.5 K/uL (0.0-0.8); MONO % 7.8 % (0.0-10.0); NEUT # 4.3 K/uL (1.8-7.0); NEUT % 61.7 % (50.0-75.0); NRBC % 0.1 % (0.0-0.0); RBC 3.27 Mil/uL (3.80-5.20); RED CELL DISTRIBUTION WIDTH 14.7 % (11.5-14.5); WHITE BLOOD COUNT 6.9 K/uL (4.8-10.8)
[2018-10-06 06:36] LABS: ALBUMIN 3.3 g/dL (3.5-5.0); ALT/SGPT 98 U/L (9-52); AST/SGOT 45 U/L (14-36); BLOOD UREA NITROGEN 5 mg/dl (7-17); CALCIUM 8.8 mg/dL (8.4-10.2); GFR NON-AFRICAN AMERICAN > 60
[2018-10-06] MEDS: Insulin Lispro Mix 75/25 100 units/ml (HumaLog) 10ml SC SCH (07:30)
[2018-10-06] MEDS: Insulin Regular 100 units/ml SC SCH ×4 (07:37→22:00)
[2018-10-06] MEDS ORDERED: Potassium Chloride 20 mEq 100 ML IVPB ONE (09:00)
[2018-10-06] MEDS ORDERED: Propofol 10 mg/ml Inj (20 ML) ONE (09:16)
[2018-10-06] MEDS ORDERED: Midazolam 2 MG/2 ML VIAL ONE (09:16)
[2018-10-06] MEDS ORDERED: Rocuronium 10 mg/ml (5 ml) ONE (09:16)
[2018-10-06] MEDS ORDERED: ePHEDrine 50 mg/ml Inj ONE (09:16)
[2018-10-06] MEDS ORDERED: Succinylcholine Chloride 20 mg/ml Syr (5 ml) IV ONE (09:17)
[2018-10-06] MEDS ORDERED: Lidocaine 4% (Laryng-O-Jet) Kit MM ONE (09:17)
[2018-10-06] MEDS ORDERED: Etomidate 20 mg/10ml Inj IV ONE (09:19)
[2018-10-06] MEDS ORDERED: Bupivacaine HCl 0.5% PF (30 ml) Inj ONE (09:39)
--- NOTE | 2018-10-06 09:55 | CP.PCM.PN ---
Subjective - Date & Time of Evaluation Date of Evaluation: 10/06/18 Time of Evaluation: 06:00 - Subjective Subjective: Patient seen and examined. No acute events overnight. Will proceed to OR for laparoscopic cholecystectomy. Objective - Vital Signs/Intake and Output Vital Signs (last 24 hours): Temp Pulse Resp BP Pulse Ox 98.2 F 61 20 149/61 96 10/06/18 08:46 10/06/18 09:27 10/06/18 08:46 10/06/18 09:27 10/06/18 08:46 - Medications Medications: Current Medications Carvedilol (Coreg) 12.5 mg PO Q12 [facility] Last Admin: 10/06/18 09:27 Dose: 12.5 mg Dextrose (Dextrose 50% Inj) 0 ml IV STAT PRN; Protocol PRN Reason: Hypoglycemia Protocol Last Admin: 10/05/18 13:01 Dose: 50 ml Dextrose (Glutose 15) 0 gm PO ONCE PRN; Protocol PRN Reason: Hypoglycemia Protocol Gabapentin (Neurontin) 300 mg PO Q8 [facility] Last Admin: 10/06/18 00:04 Dose: 300 mg Glucagon (Glucagen Diagnostic Kit) 0 mg IM STAT PRN; Protocol PRN Reason: Hypoglycemia Protocol Piperacillin Sod/Tazobactam (Sod 3.375 gm/ Sodium Chloride) 100 mls @ 100 mls/hr IVPB Q6 [facility]; Protocol Last Admin: 10/06/18 04:44 Dose: 100 mls/hr Dextrose/Sodium Chloride (Dextrose 5%-0.9% Ns 500 Ml) 500 mls @ 85 mls/hr IV .Q5H53M [facility] Stop: 10/06/18 13:11 Last Admin: 10/06/18 07:42 Dose: Not Given Metronidazole 250 mg/ (Miscellaneous) 50 mls @ 50 mls/hr IVPB Q8 [facility]; Protocol Potassium Chloride (Potassium Chloride 20 Meq/100 Ml) 100 mls @ 50 mls/hr IVPB ONCE ONE Stop: 10/06/18 10:59 Insulin Human Regular (Humulin R) 0 units SC ACHS [facility]; Protocol Last Admin: 10/06/18 07:37 Dose: Not Given Insulin Lispro Protam/Lispro Human (Humalog Mix 75/25) 20 units SC ACB [facility] Last Admin: 10/06/18 07:30 Dose: Not Given Levothyroxine Sodium (Synthroid) 88 mcg PO DAILY@0630 [facility] Last Admin: 10/06/18 05:47 Dose: Not Given Ondansetron HCl (Zofran Inj) 4 mg IVP Q4 PRN PRN Reason: Nausea/Vomiting Pantoprazole Sodium (Protonix Inj) 40 mg IVP DAILY [facility] Last Admin: 10/05/18 09:03 Dose: 40 mg - Labs Labs: 10/06/18 05:55 10/06/18 05:55 PT 13.6 Seconds (9.8-13.1) H 10/06/18 05:55 INR 1.2 10/06/18 05:55 APTT 37.0 Seconds (25.6-37.1) 10/06/18 05:55 - Constitutional Appears: No Acute Distress - Eye Exam Eye Exam: EOMI, Normal appearance - ENT Exam ENT Exam: Mucous Membranes Moist - Respiratory Exam Respiratory Exam: NORMAL BREATHING PATTERN - Cardiovascular Exam Cardiovascular Exam: +S1, +S2 - GI/Abdominal Exam GI & Abdominal Exam: Soft - Neurological Exam Neurological Exam: Alert, Awake, Oriented x3 - Psychiatric Exam Psychiatric exam: Normal Mood - Skin Skin Exam: Dry, Intact, Warm Assessment and Plan - Assessment and Plan (Free Text) Assessment: 82F with cholecystitis Plan: NPO IVF ABx For OR this AM D/w Dr. Brian Clarke PGY3
[2018-10-06] MEDS ORDERED: Lactated Ringer's 1,000 ML IV ONE (10:02)
[2018-10-06] MEDS ORDERED: Neostigmine 1:1000 (1 mg/ml) Inj ONE (10:37)
[2018-10-06] MEDS ORDERED: Bupivacaine HCl 0.5% PF (30 ml) Inj IJ ONE (10:45)
--- NOTE | 2018-10-06 11:17 | PCM.SURG1 ---
<Andrew Moran - Last Filed: 10/06/18 11:14> Surgeon's Initial Post Op Note - Surgeon's Notes Surgeon: Dr. Torres [employer] Operator: Dr. Dean Ng PGY3 Type of Anesthesia: General Endo Anesthesia Administered By: Dr. Jeff Pre-Operative Diagnosis: cholecystitis Operative Findings: see operative report Post-Operative Diagnosis: same Operation Performed: laparoscopic cholecystectomy Specimen/Specimens Removed: gallbladder Estimated Blood Loss: EBL {In ML}: 10 Blood Products Given: N/A Drains Used: No Drains Post-Op Condition: Good Date of Surgery/Procedure: 10/06/18 Time of Surgery/Procedure: 11:16 <Kain Torres - Last Filed: 10/06/18 13:48> Surgeon's Initial Post Op Note - Surgeon's Notes Estimated Blood Loss: EBL {In ML}: 5
[2018-10-06] MEDS: Lactated Ringer's 1,000 ML IV SCH (12:19)
--- NOTE | 2018-10-06 13:54 | CP.PCM.PN ---
Subjective - Date & Time of Evaluation Date of Evaluation: 10/06/18 Time of Evaluation: 13:54 - Subjective Subjective: Comfortable in post op Objective - Vital Signs/Intake and Output Vital Signs (last 24 hours): Temp Pulse Resp BP Pulse Ox 97.3 F L 74 17 167/75 H 97 10/06/18 12:25 10/06/18 13:05 10/06/18 13:05 10/06/18 13:05 10/06/18 13:05 Intake and Output: 10/06/18 10/06/18 11:59 23:59 Intake Total 500 Balance 500 - Medications Medications: Current Medications Carvedilol (Coreg) 12.5 mg PO Q12 [facility] Last Admin: 10/06/18 09:27 Dose: 12.5 mg Dextrose (Dextrose 50% Inj) 0 ml IV STAT PRN; Protocol PRN Reason: Hypoglycemia Protocol Last Admin: 10/05/18 13:01 Dose: 50 ml Dextrose (Glutose 15) 0 gm PO ONCE PRN; Protocol PRN Reason: Hypoglycemia Protocol Gabapentin (Neurontin) 300 mg PO Q8 [facility] Last Admin: 10/06/18 09:00 Dose: Not Given Glucagon (Glucagen Diagnostic Kit) 0 mg IM STAT PRN; Protocol PRN Reason: Hypoglycemia Protocol Metronidazole 250 mg/ (Miscellaneous) 50 mls @ 50 mls/hr IVPB Q8 [facility]; Protocol Lactated Ringer's (Lactated Ringer's) 1,000 mls @ 125 mls/hr IV .Q8H [facility] Last Admin: 10/06/18 12:19 Dose: 0 mls Insulin Human Regular (Humulin R) 0 units SC ACHS [facility]; Protocol Last Admin: 10/06/18 07:37 Dose: Not Given Insulin Lispro Protam/Lispro Human (Humalog Mix 75/25) 20 units SC ACB [facility] Last Admin: 10/06/18 07:30 Dose: Not Given Levothyroxine Sodium (Synthroid) 88 mcg PO DAILY@0630 [facility] Last Admin: 10/06/18 05:47 Dose: Not Given Morphine Sulfate (Morphine) 1 mg IVP Q10M PRN PRN Reason: Pain, moderate (4-7) Ondansetron HCl (Zofran Inj) 4 mg IVP Q4 PRN PRN Reason: Nausea/Vomiting Pantoprazole Sodium (Protonix Inj) 40 mg IVP DAILY [facility] Last Admin: 10/05/18 09:03 Dose: 40 mg - Labs Labs: 10/06/18 05:55 10/06/18 05:55 PT 13.6 Seconds (9.8-13.1) H 10/06/18 05:55 INR 1.2 10/06/18 05:55 APTT 37.0 Seconds (25.6-37.1) 10/06/18 05:55 - Constitutional Appears: Non-toxic - Head Exam Head Exam: ATRAUMATIC, NORMAL INSPECTION, NORMOCEPHALIC - Eye Exam Eye Exam: Normal appearance - Respiratory Exam Respiratory Exam: Clear to Ausculation Bilateral - Cardiovascular Exam Cardiovascular Exam: REGULAR RHYTHM, +S1, +S2 - GI/Abdominal Exam GI & Abdominal Exam: Soft, Normal Bowel Sounds - Extremities Exam Extremities Exam: Normal Inspection - Neurological Exam Neurological Exam: Alert, Awake - Psychiatric Exam Psychiatric exam: Flat Affect - Skin Skin Exam: Normal Color Assessment and Plan (1) Cholelithiasis Status: Acute (2) Cholangitis Status: Suspected (3) Cholecystitis Status: Acute (4) Diabetes type 2, uncontrolled Status: Chronic (5) Elevated liver enzymes Status: Acute (6) Near syncope Status: Acute (7) Hypertension Status: Chronic (8) Hypothyroidism Status: Chronic (9) Pyelonephritis Status: Acute (10) Cirrhosis of liver Status: Acute
[2018-10-06] MEDS ORDERED: Oxycodone/Acetaminophen 5/325 mg Tab PO PRN (15:31)
[2018-10-06] MEDS: metroNIDAZOLE 500mg/100ml NS 250 MG in Premixed IV 1 EA IVPB SCH (17:18)
[2018-10-06 23:51] VITALS: RESP 20
[2018-10-07] MEDS: metroNIDAZOLE 500mg/100ml NS 250 MG in Premixed IV 1 EA IVPB SCH ×2 (00:01→08:27)
[2018-10-07] MEDS: Lactated Ringer's 1,000 ML IV SCH ×3 (02:54→12:59)
[2018-10-07] MEDS: Levothyroxine 88 MCG TAB PO SCH (05:36)
[2018-10-07 06:08] LABS: BASO % 0.3 % (0.0-2.0); EOS # 0.1 K/uL (0.0-0.7); EOS % 1.7 % (0.0-4.0); LYMPH # 1.7 K/uL (1.0-4.3); LYMPH % 19.9 % (20.0-40.0); MEAN CELL VOLUME 90.4 fl (81.0-99.0); MEAN CORPUSCULAR HGB CONC 33.2 g/dL (33.0-37.0); MEAN PLATELET VOLUME 8.8 fl (7.2-11.7); MONO # 0.5 K/uL (0.0-0.8); NEUT # 6.1 K/uL (1.8-7.0); NEUT % 72.1 % (50.0-75.0); RBC 3.33 Mil/uL (3.80-5.20); RED CELL DISTRIBUTION WIDTH 14.4 % (11.5-14.5); WHITE BLOOD COUNT 8.5 K/uL (4.8-10.8)
[2018-10-07 06:15] LABS: ALB/GLOB RATIO 0.9 (1.0-2.1); ALBUMIN 3.1 g/dL (3.5-5.0); ALT/SGPT 92 U/L (9-52); AST/SGOT 66 U/L (14-36); BLOOD UREA NITROGEN 6 mg/dl (7-17); CALCIUM 8.4 mg/dL (8.4-10.2); GFR NON-AFRICAN AMERICAN > 60
[2018-10-07 07:45] VITALS: BP 100/59; TEMP 97.7
[2018-10-07] MEDS: Insulin Regular 100 units/ml SC SCH ×3 (07:49→12:56)
[2018-10-07] MEDS: Insulin Lispro Mix 75/25 100 units/ml (HumaLog) 10ml SC SCH (08:25)
--- NOTE | 2018-10-07 08:26 | OP ---
PROCEDURE DATE: 10/06/18 PREOPERATIVE DIAGNOSIS: Acute cholecystitis. POSTOPERATIVE DIAGNOSIS: Acute cholecystitis. PROCEDURE: Laparoscopic cholecystectomy. SURGEON: Kain Torres MD THREADING MACHINE FEEDER AUTOMATIC: Myron Novak MD SECOND THREADING MACHINE FEEDER AUTOMATIC: Andrew Moran DO THIRD THREADING MACHINE FEEDER AUTOMATIC: Nahid Rodarte DO ANESTHESIA: General endotracheal intubation. ANESTHESIOLOGIST: Ly Jeff MD INTRAVENOUS FLUIDS: Crystalloids. ESTIMATED BLOOD LOSS: 5 mL. INTRAOPERATIVE FINDINGS: Cholelithiasis, cholecystitis. SPECIMEN: Gallbladder. BRIEF HISTORY: Mrs. Cano is a very pleasant 82-year-old female who came to the hospital, complaining of epigastric and right upper quadrant abdominal pain and upon further investigation, the patient was found to have gallstones as well as elevated liver enzymes, so the patient underwent MRCP that did not reveal any filling defects in common bile duct. Subsequent to that, the patient's liver enzymes have improved. The patient was taken to the operating room for above-stated procedure. DESCRIPTION OF PROCEDURE: The patient was brought into the operating room and placed supine on the operating room table. Bilateral Flowtron boots were applied to the patient's lower extremities. After successful induction of anesthesia and successful endotracheal intubation by the anesthesia team, the patient's abdomen was prepped with ChloraPrep stick and draped in a standard surgical fashion. Prior to the beginning of the procedure, a time-out was called in the room, and everyone in room were in agreement. Using a Veress needle, the patient's abdomen was entered at the umbilicus, and pneumoperitoneum was achieved with good opening pressures. Once this was accomplished, using a 11-blade scalpel knife, approximately 1-cm incision was made in the umbilicus in a longitudinal fashion. Subsequent to that, an 11-mm trocar was introduced into the patient's abdomen. At this point in time, a 5 mm 0-degree scope was introduced into the patient's abdomen, and the abdomen was inspected. We immediately were able to visualize the gallbladder. At this point in time, attention was turned to the subxiphoid area. Using the 11-blade scalpel knife, approximately 5-mm incision was made in subxiphoid area, and 5-mm trocar was introduced into the patient's abdomen. Attention was turned to the right side of the patient's abdomen. Using 11-blade scalpel knife, two 5-mm incisions were made in a transverse fashion on right side of the patient's abdomen. Subsequent to that, two 5-mm trocars were introduced into the patient's abdomen. At this point in time, gallbladder was grasped at the fundus in the Matilda's pouch using Mauricio and Geck graspers. Subsequent to that, using [place] dissector, cystic duct and cystic artery were dissected out, and a critical view of safety was achieved. At this point in time, the cystic duct was clipped with two clips proximal and one distal and transected with laparoscopic scissors. Same thing was done for the cystic artery. It was clipped with two clips proximal and one distal and transected with laparoscopic scissors. At this point in time, gallbladder was dissected off the gallbladder fossa using hook electrical cautery. Once the gallbladder was completely freed up from the gallbladder fossa, EndoCatch bag was introduced into the patient's abdomen. Gallbladder was placed inside of the bag, and the bag was closed. At this point in time, gallbladder fossa was inspected for hemostasis. Hemostasis was confirmed. Gallbladder fossa and abdominal cavity were irrigated with sterile saline. Fluid was suctioned out. At this point in time, an 11-mm trocar together with the EndoCatch bag and gallbladder were removed from the patient's abdomen and passed off to the [facility] as a specimen. Fascial layer at the umbilical port sites was closed with two interrupted 0 Vicryl sutures on UR-5 needle. Subsequent to that, the patient's abdomen was fully desufflated. Rest of the trocars were removed from the patient's abdomen. Skin was closed with a 4-0 Monocryl suture in a running subcuticular fashion. At the end of the procedure, incision sites were infiltrated with Marcaine local anesthetic. The patient's abdomen was washed and dried. Dermabond was applied to the site of the incisions. The patient was successfully extubated by the anesthesia team, transferred to the stretcher, and taken to the recovery room in a stable condition. At the end of the procedure, all instrument counts, needles and sponges were correct. Kain Torres MD
--- NOTE | 2018-10-07 08:55 | CP.PCM.PN ---
Subjective - Date & Time of Evaluation Date of Evaluation: 10/07/18 Time of Evaluation: 08:53 - Subjective Subjective: Patient seen and examined. No acute events over night. Tolerated liquid diet. Complaining of mild incisional site tenderness. Objective - Vital Signs/Intake and Output Vital Signs (last 24 hours): Temp Pulse Resp BP Pulse Ox 97.7 F 73 20 100/59 L 95 10/07/18 07:45 10/07/18 07:45 10/07/18 07:45 10/07/18 07:45 10/07/18 07:45 - Medications Medications: Current Medications Carvedilol (Coreg) 12.5 mg PO Q12 [facility] Last Admin: 10/07/18 08:27 Dose: 12.5 mg Dextrose (Dextrose 50% Inj) 0 ml IV STAT PRN; Protocol PRN Reason: Hypoglycemia Protocol Last Admin: 10/05/18 13:01 Dose: 50 ml Dextrose (Glutose 15) 0 gm PO ONCE PRN; Protocol PRN Reason: Hypoglycemia Protocol Gabapentin (Neurontin) 300 mg PO Q8 [facility] Last Admin: 10/07/18 08:28 Dose: 300 mg Glucagon (Glucagen Diagnostic Kit) 0 mg IM STAT PRN; Protocol PRN Reason: Hypoglycemia Protocol Metronidazole 250 mg/ (Miscellaneous) 50 mls @ 50 mls/hr IVPB Q8 [facility]; Protocol Last Admin: 10/07/18 08:27 Dose: 50 mls/hr Lactated Ringer's (Lactated Ringer's) 1,000 mls @ 125 mls/hr IV .Q8H [facility] Last Admin: 10/07/18 07:49 Dose: Not Given Insulin Human Regular (Humulin R) 0 units SC ACHS [facility]; Protocol Last Admin: 10/07/18 07:49 Dose: Not Given Insulin Lispro Protam/Lispro Human (Humalog Mix 75/25) 20 units SC ACB [facility] Last Admin: 10/07/18 08:25 Dose: 20 units Levothyroxine Sodium (Synthroid) 88 mcg PO DAILY@0630 [facility] Last Admin: 10/07/18 05:36 Dose: 88 mcg Morphine Sulfate (Morphine) 1 mg IVP Q10M PRN PRN Reason: Pain, moderate (4-7) Last Admin: 10/06/18 13:25 Dose: 1 mg Morphine Sulfate (Morphine) 2 mg IVP Q4 PRN PRN Reason: Pain, severe (8-10) Ondansetron HCl (Zofran Inj) 4 mg IVP Q4 PRN PRN Reason: Nausea/Vomiting Oxycodone/Acetaminophen (Percocet 5/325 Mg Tab) 1 tab PO Q4 PRN PRN Reason: Pain, moderate (4-7) Stop: 10/09/18 15:32 Last Admin: 10/06/18 22:01 Dose: 1 tab Pantoprazole Sodium (Protonix Inj) 40 mg IVP DAILY [facility] Last Admin: 10/07/18 08:25 Dose: 40 mg - Labs Labs: 10/07/18 05:35 10/07/18 05:35 PT 13.6 Seconds (9.8-13.1) H 10/06/18 05:55 INR 1.2 10/06/18 05:55 APTT 37.0 Seconds (25.6-37.1) 10/06/18 05:55 - Constitutional Appears: No Acute Distress - Eye Exam Eye Exam: Normal appearance - ENT Exam ENT Exam: Mucous Membranes Moist - Respiratory Exam Respiratory Exam: NORMAL BREATHING PATTERN - Cardiovascular Exam Cardiovascular Exam: +S1, +S2 - GI/Abdominal Exam GI & Abdominal Exam: Soft, Tenderness - Neurological Exam Neurological Exam: Alert, Awake, Oriented x3 - Psychiatric Exam Psychiatric exam: Normal Mood - Skin Skin Exam: Dry, Intact, Warm Assessment and Plan - Assessment and Plan (Free Text) Assessment: 82F s/p laparoscopic cholecystectomy POD 1 Plan: -Adv to regular diet -PO analgesics -ABx per ID -Encourage IS use -OOB to chair -Encourage ambulation -PT -Further recs per Dr. Novak/Dr. Brian Clarke PGY3
[2018-10-07 10:03] VITALS: PULSE 67; O2SAT 94
--- NOTE | 2018-10-07 13:00 | PQF ---
PROVIDER RESPONSE TEXT: Flagyl. Stool for C Difficile + Ag and Toxin The patient's Clinical Indicators: PN 4/7 + diarrhea. Be ing treated for Acute Cholecystitis with IVAB Stool for C Difficile + Ag and Toxin REVIEWER QUERY TEXT: Medication Correlation for Diagnosis Please clarify if there is an associated diagnosis or not to go along with the Stool for C Difficile results. Your help is needed in capturing diagnoses for the corresponding medications ordered. Please clarify in the documentation diagnoses for the following medication(s). Medications: Flagyl. Stool for C Difficile + Ag and Toxin The patient's Clinical Indicators include: PN 4/7 + diarrhea. Being treated for Acute Cholecystitis with IVAB Stool for C Difficile + Ag and Toxin Medications: Flagyl. Query created by: Samantha Ball on 10/07/2018 9:07 AM Electronically signed by: Pipo Huerta MD 10/07/2018 12:57 PM
--- NOTE | 2018-10-07 13:35 | CP.PCM.DIS ---
Provider - Provider Date of Admission: 09/30/18 00:30 Attending physician: Pipo Huerta MD Primary care physician: Shaik Joelle HAND Consults: 09/30/18 00:32 Surgery [General Surgery Consult] Stat Comment: Consulting Provider: Jonathan Weinberg Consulting Physician: Jonathan Weinberg Reason for Consult: acalculous priscilla 09/30/18 06:41 Infectious Disease Consult Routine Comment: acalculous cholystitis Consulting Provider: Prema Rice Consulting Physician: Prema Rice Reason for Consult: acalculous cholystitis 09/30/18 08:40 Gastroenterology Consult Routine Comment: Consulting Provider: Mick Adorno Consulting Physician: Mick Adorno Reason for Consult: cholangitis 09/30/18 13:55 Surgery [General Surgery Consult] Routine Comment: Consulting Provider: Kain Torres Consulting Physician: Kain Torres Reason for Consult: Cholecystitis 09/30/18 20:04 Cardiology Consult Routine Comment: Consulting Provider: Francis May V Consulting Physician: Francis May V Reason for Consult: cardiac clearence 10/01/18 09:53 Hematology Oncology Consult Routine Comment: Consulting Provider: Daniela May Consulting Physician: Daniela May Reason for Consult: elevated PTT Time Spent in preparation of Discharge (in minutes): 30 Diagnosis - Discharge Diagnosis (1) Cholelithiasis Status: Acute (2) Cholangitis Status: Suspected (3) Cholecystitis Status: Acute (4) Diabetes type 2, uncontrolled Status: Chronic (5) Elevated liver enzymes Status: Acute (6) Near syncope Status: Acute (7) Hypertension Status: Chronic (8) Hypothyroidism Status: Chronic (9) Pyelonephritis Status: Acute (10) Cirrhosis of liver Status: Acute Hospital Course - Lab Results Lab Results: Micro Results 10/04/18 13:20 Urine,Clean Catch Urine Culture - Final No Growth (<1,000 CFU/ML) 09/29/18 20:25 Blood Blood Culture - Final NO GROWTH AFTER 5 DAYS 09/29/18 20:25 Blood Gram Stain - Final TEST NOT PERFORMED 09/29/18 19:55 Blood Blood Culture - Final NO GROWTH AFTER 5 DAYS 09/29/18 19:55 Blood Gram Stain - Final TEST NOT PERFORMED 09/29/18 22:11 Urine Random Urine Culture - Final No Growth (<1,000 CFU/ML) Most Recent Lab Values WBC 8.5 K/uL (4.8-10.8) 10/07/18 05:35 RBC 3.33 Mil/uL (3.80-5.20) L 10/07/18 05:35 Hgb 10.0 g/dL (12.0-16.0) L 10/07/18 05:35 Hct 30.1 % (34.0-47.0) L 10/07/18 05:35 MCV 90.4 fl (81.0-99.0) 10/07/18 05:35 MCH 30.0 pg (27.0-31.0) 10/07/18 05:35 MCHC 33.2 g/dL (33.0-37.0) 10/07/18 05:35 RDW 14.4 % (11.5-14.5) 10/07/18 05:35 Plt Count 144 K/uL (130-400) 10/07/18 05:35 MPV 8.8 fl (7.2-11.7) 10/07/18 05:35 Neut % (Auto) 72.1 % (50.0-75.0) 10/07/18 05:35 Lymph % (Auto) 19.9 % (20.0-40.0) L 10/07/18 05:35 Arroyo % (Auto) 6.0 % (0.0-10.0) 10/07/18 05:35 Eos % (Auto) 1.7 % (0.0-4.0) 10/07/18 05:35 Baso % (Auto) 0.3 % (0.0-2.0) 10/07/18 05:35 Neut # (Auto) 6.1 K/uL (1.8-7.0) 10/07/18 05:35 Lymph # (Auto) 1.7 K/uL (1.0-4.3) 10/07/18 05:35 Arroyo # (Auto) 0.5 K/uL (0.0-0.8) 10/07/18 05:35 Eos # (Auto) 0.1 K/uL (0.0-0.7) 10/07/18 05:35 Baso # (Auto) 0.0 K/uL (0.0-0.2) 10/07/18 05:35 Neutrophils % (Manual) 82 % (42-75) H 09/29/18 20:10 Band Neutrophils % 3 % (0-2) H 09/29/18 20:10 Lymphocytes % (Manual) 8 % (20-50) L 09/29/18 20:10 Monocytes % (Manual) 6 % (0-10) 09/29/18 20:10 Eosinophils % (Manual) 1 % (0-7) 09/29/18 20:10 Toxic Granulation Present 09/29/18 20:10 Platelet Estimate Normal (NORMAL) 09/29/18 20:10 Hypochromasia (manual) Slight 09/29/18 20:10 Anisocytosis (manual) Slight 09/29/18 20:10 Haptoglobin 150.9 mg/dL (30.0-200.0) 10/01/18 10:00 PT 13.6 Seconds (9.8-13.1) H 10/06/18 05:55 INR 1.2 10/06/18 05:55 APTT 37.0 Seconds (25.6-37.1) 10/06/18 05:55 pO2 31 mm/Hg (30-55) 09/29/18 20:12 VBG pH 7.43 (7.32-7.43) 09/29/18 20:12 VBG pCO2 47 mmHg (40-60) 09/29/18 20:12 VBG HCO3 28.5 mmol/L 09/29/18 20:12 VBG Total CO2 32.6 mmol/L (22-28) H 09/29/18 20:12 VBG O2 Sat (Calc) 65.8 % (40-65) H 09/29/18 20:12 VBG Base Excess 5.8 mmol/L (0.0-2.0) H 09/29/18 20:12 VBG Potassium 4.8 mmol/L (3.6-5.2) 09/29/18 20:12 Sodium 138.0 mmol/L (132-148) 09/29/18 20:12 Chloride 106.0 mmol/L (98-107) 09/29/18 20:12 Glucose 137 mg/dL (65-105) H 09/29/18 20:12 Lactate 2.7 mmol/L (0.7-2.1) H 09/29/18 20:12 FiO2 21.0 % 09/29/18 20:12 Sodium 136 mmol/l (132-148) 10/07/18 05:35 Potassium 4.0 MMOL/L (3.6-5.0) 10/07/18 05:35 Chloride 102 mmol/L (98-107) 10/07/18 05:35 Carbon Dioxide 26 mmol/L (22-30) 10/07/18 05:35 Anion Gap 12 (10-20) 10/07/18 05:35 BUN 6 mg/dl (7-17) L 10/07/18 05:35 Creatinine 0.8 mg/dl (0.7-1.2) 10/07/18 05:35 Est GFR ( Amer) > 60 10/07/18 05:35 Est GFR (Non-Af Amer) > 60 10/07/18 05:35 POC Glucose (mg/dL) 269 mg/dL (65-110) H 10/07/18 10:26 Random Glucose 113 mg/dL (65-105) H 10/07/18 05:35 Hemoglobin A1c 8.2 % (4.2-6.5) H 09/30/18 09:00 Calcium 8.4 mg/dL (8.4-10.2) 10/07/18 05:35 Phosphorus 2.8 mg/dl (2.5-4.5) 10/01/18 06:15 Magnesium 1.9 MG/DL (1.6-2.3) 10/01/18 06:15 Iron 51 ug/dL (37-170) 10/01/18 10:00 TIBC 267 ug/dL (250-450) 10/01/18 10:00 % Saturation 19 % (20-55) L 10/01/18 10:00 Transferrin 172.77 mg/dL (206-381) L 10/01/18 10:00 Ferritin 620.0 ng/Ml (11.1-264.0) H 10/01/18 10:00 Total Bilirubin 1.2 mg/dl (0.2-1.3) 10/07/18 05:35 Direct Bilirubin 2.6 mg/ml (0.0-0.4) H 10/01/18 09:15 AST 66 U/L (14-36) H D 10/07/18 05:35 ALT 92 U/L (9-52) H 10/07/18 05:35 Alkaline Phosphatase 129 U/L (38-126) H 10/07/18 05:35 Total Protein 6.4 G/DL (6.3-8.2) 10/07/18 05:35 Albumin 3.1 g/dL (3.5-5.0) L 10/07/18 05:35 Globulin 3.3 gm/dL (2.2-3.9) 10/07/18 05:35 Albumin/Globulin Ratio 0.9 (1.0-2.1) L 10/07/18 05:35 Triglycerides 82 mg/DL (0-149) D 09/30/18 07:05 Cholesterol 57 mg/dL (0-199) 09/30/18 07:05 LDL Cholesterol Direct < 30 mg/dL (0-129) 09/30/18 07:05 HDL Cholesterol 31 MG/DL (30-70) 09/30/18 07:05 Amylase 50 U/L (30-110) 09/30/18 07:05 Lipase 40 U/L (23-300) 09/30/18 07:05 Alpha Fetoprotein 1.8 IU/mL (0.0-7.22) 09/30/18 13:00 Thyroxine (T4) 7.71 ug/dl (5.5-11.0) 09/30/18 07:05 Total T3 0.493 nmol/L (1.49-2.60) L 09/30/18 07:05 TSH 3rd Generation 0.24 mIU/ML (0.46-4.68) L 09/30/18 07:05 Venous Blood Potassium 4.8 mmol/L (3.6-5.2) 09/29/18 20:12 Urine Color Bonita (YELLOW) 09/29/18 22:11 Urine Clarity Slighty-cloudy (Clear) 09/29/18 22:11 Urine pH 7.0 (5.0-8.0) 09/29/18 22:11 Ur Specific [place] 1.018 (1.003-1.030) 09/29/18 22:11 Urine Protein 30 mg/dL (NEGATIVE) 09/29/18 22:11 Urine Glucose (UA) Neg mg/dL (NEGATIVE) 09/29/18 22:11 Urine Ketones Negative mg/dL (NEGATIVE) 09/29/18 22:11 Urine Blood Negative (NEGATIVE) 09/29/18 22:11 Urine Nitrate Negative (NEGATIVE) 09/29/18 22:11 Urine Bilirubin Negative (NEGATIVE) 09/29/18 22:11 Urine Urobilinogen 4.0 mg/dL (0.2-1.0) H 09/29/18 22:11 Ur Leukocyte Esterase Trace Rosario/uL (Negative) 09/29/18 22:11 Urine RBC (Auto) 2 /hpf (0-3) 09/29/18 22:11 Urine Microscopic WBC 6 /hpf (0-5) H 09/29/18 22:11 Ur Squamous Epith Cells 1 /hpf (0-5) 09/29/18 22:11 Urine Bacteria Rare (<OCC) 09/29/18 22:11 Rheumatoid Factor IgG <5 U (<=6) 09/30/18 13:00 Rheumatoid Factor IgA <5 U (<=6) 09/30/18 13:00 Rheumatoid Factor IgM <5 U (<=6) 09/30/18 13:00 DIAMOND 6 Profile Negative (NEGATIVE) 09/30/18 13:00 DIAMOND Screen Negative (Negative) 09/30/18 13:00 Anti-Mitochondrial Ab Negative (Negative) 09/30/18 13:00 C. difficile Ag & Toxin Positive (NEGATIVE) H 10/05/18 13:11 Hepatitis A IgM Ab Nonreactive (Nonreactive) 09/30/18 13:30 Hepatitis A Ab Total Reactive (Nonreactive) H 09/30/18 13:30 Hep Bs Antigen Negative (NEGATIVE) 09/30/18 13:30 Hep Bs Antibody Positive (NEGATIVE) 09/30/18 13:30 Hep Bs Antibody, Quant 160 mIU/mL (>or=10) 09/30/18 13:30 Hep B Core IgM Ab Negative (NEGATIVE) 09/30/18 13:30 Hep B DNA Interpret <1.30 not detected log IU/mL (<1.30) 09/30/18 13:30 Hepatitis Be Antibody Reactive (Non-reactive) H 09/30/18 13:30 Hepatitis Be Antigen Non-reactive (Non-reactive) 09/30/18 13:30 Hepatitis C Antibody Non reactive (Non Reactive) 09/30/18 13:30 Hep C Ab Signal/Cutoff 0.01 (<1.0) 09/30/18 13:30 HCV (Real-Time PCR) <1.18 log IU/mL 09/30/18 13:30 Hepatitis C RNA <15 not detected IU/mL (Not Detected) 09/30/18 13:30 HCV RNA Qual (TMA) Not detected 09/30/18 13:00 HCV RNA Quant (PCR) <1.18 not detected Log IU/mL (Not Detected) 09/30/18 13:30 HCV RNA (PCR) IUs/ml <15 IU/mL 09/30/18 13:30 Hepatitis D Antibody Negative 09/30/18 13:30 Hepatitis E IgG Ab Not detected 09/30/18 13:30 Blood Type B POSITIVE 10/06/18 05:55 Blood Type Confirm B POSITIVE 09/30/18 08:02 Antibody Screen Negative 10/06/18 05:55 Crossmatch See Detail 10/02/18 10:30 BBK History Checked Patient has bt 10/06/18 05:55 - Hospital Course Hospital Course: 82 y/o lady with Hx of T2D, HTN presented to ER with vomiting , nausea, fever, RUQ pain lt flank pain. She was found in her house by the daughter francisco, with sing of vomiting on the side of her bed. In ER she presented with fever 103.5, confuse, persistent pain in the RUQ, elevation of the bilirubin and liver function test. A ct scan of the abdomen reveled sign of pyelonephritis with cholecystitis and cholelithiasis. Placed on IV antibx, NPO and IVF . She underwent to [facility]. Discharge Exam - Head Exam Head Exam: ATRAUMATIC, NORMAL INSPECTION, NORMOCEPHALIC - Eye Exam Eye Exam: Normal appearance Pupil Exam: PERRL - ENT Exam ENT Exam: Normal Exam - Neck Exam Neck exam: Full Rom - Respiratory Exam Respiratory Exam: Clear to PA & Lateral - Cardiovascular Exam Cardiovascular Exam: REGULAR RHYTHM, +S1, +S2 - GI/Abdominal Exam GI & Abdominal Exam: Normal Bowel Sounds, Soft - Extremities Exam Extremities exam: normal inspection - Neurological Exam Neurological exam: Alert, CN II-XII Intact, Normal Gait, Oriented x3, Reflexes Normal - Psychiatric Exam Psychiatric exam: Normal Affect - Skin Skin Exam: Normal Color Discharge Plan - Discharge Medications Prescriptions: Metronidazole [Flagyl] 250 mg PO TID 10 Days #30 tablet - Follow Up Plan Condition: STABLE Disposition: HOME/ ROUTINE Instructions: Cholecystectomy, Laparoscopic Surgery Referrals: Shaik Lai MD [Primary Care Provider] - Kain Torres MD [Staff Provider] -
== END 2018-10-07 14:00 | disposition home or self-care (01) | DRG 418 ==
LOC: H.ER 18:48 → H.ERHOLD 09-30 00:30 → H.MEDSURG1 09-30 02:42
PROVIDERS: ADMIT Internal Medicine; ATTEND Internal Medicine
PROC: 30233K1 Transfusion of Nonautologous Frozen Plasma into Peripheral Vein, Percutaneous Approach (ICD-10-PCS; 2018-10-02)
PROC: 0FT44ZZ Resection of Gallbladder, Percutaneous Endoscopic Approach (ICD-10-PCS; principal; 2018-10-06 10:00)
DX: K80.00 Calculus of gallbladder with acute cholecystitis without obstruction (principal); K83.09 Other cholangitis; A04.72 Enterocolitis due to Clostridium difficile, not specified as recurrent; N12 Tubulo-interstitial nephritis, not specified as acute or chronic; E11.65 Type 2 diabetes mellitus with hyperglycemia; R79.1 Abnormal coagulation profile; E11.649 Type 2 diabetes mellitus with hypoglycemia without coma; K74.60 Unspecified cirrhosis of liver; Z88.2 Allergy status to sulfonamides; E03.9 Hypothyroidism, unspecified; M19.90 Unspecified osteoarthritis, unspecified site; E78.5 Hyperlipidemia, unspecified; E80.6 Other disorders of bilirubin metabolism; I10 Essential (primary) hypertension